=== PATIENT | male | born 1950 | race Caucasian/White ===

== ENCOUNTER 2018-08-11 15:31 | Inpatient (IN) | payer MEDICARE, MEDICAID ==
[~2018-08-11] VITALS: Ht 175.3 cm; Wt 75.1 kg
[~2018-08-11 15:31] MED LIST: AMLO10TA PO; ASPI-611 PO; ATOR40TA PO; CYAN-19 IM; DIPH50CA4 PF; DULR RC; ESCI10TA54 PO; GLIP5TAB13 PO; HYDR-4383 PO; LOSA50TA3 PO; MULT1TAB74 PO; POLY17PO10 PO; amLODIPine 5mg tablet PO ONE
[2018-08-11] MEDS ORDERED: furosemide 10 MG/1 ML 10ml inj IV ONE (15:55)
[2018-08-11] MEDS ORDERED: piperacillin/tazo 3.375gm/50ml 50 ML IV ONE (15:55)
[2018-08-11] MEDS ORDERED: normal saline 1000ML IV soln IV ONE (15:55)
[2018-08-11 17:38] LABS: HEMOGLOBIN 11.1 g/dl (14.0-17.9); LYMPHOCYTES # (AUTO) 0.4 X10'3 (1.1-4.8); MEAN CORPUSCULAR HGB CONC 32.8 % (33.0-36.5); WHITE BLOOD COUNT 12.4 X10'3 (4.5-11.0)
[2018-08-11 17:47] LABS: ALANINE AMINOTRANSFERASE 19 U/L (12-78); ALBUMIN/GLOBULIN RATIO 0.9 (1.1-1.5); ALKALINE PHOSPHATASE 98 IU/L (46-116); ANION GAP 12 (8-16); ASPARTATE AMINO TRANSFERASE 10 U/L (10-37); BILIRUBIN,TOTAL 0.6 MG/DL (0.1-1.0); BLOOD UREA NITROGEN 60 MG/DL (7-18); BUN/CREATININE RATIO 14.6 (5.4-32.0); CALCIUM 8.6 MG/DL (8.5-10.1); CHLORIDE 107 MMOL/L (99-107); GLUCOSE 209 MG/DL (70-104); POTASSIUM 4.3 MMOL/L (3.5-5.1); SODIUM 143 MMOL/L (135-145); TOTAL CARBON DIOXIDE 23.7 MMOL/L (24-32); TOTAL PROTEIN 6.5 G/DL (6.4-8.2); eGFR 15 ML/MIN
[2018-08-11] MEDS ORDERED: dextrose ORAL solution 15 GM/59 ML bottle PO PRN ×2 (17:50)
[2018-08-11] MEDS ORDERED: mag hydrox/Alum hydrox/simeth 30ml oral suspension PO PRN (17:50)
[2018-08-11] MEDS ORDERED: dextrose 50%-water 50ml dispensing syringe IV PRN ×2 (17:50)
[2018-08-11] MEDS ORDERED: acetaminophen 325mg tablet PO PRN (17:50)
[2018-08-11] MEDS ORDERED: magnesium 1gm/100ml D5W IVPB 100 ML IV PRN (17:50)
[2018-08-11] MEDS ORDERED: potassium Cl 20 mEq SR tablet PO PRN ×2 (17:50)
[2018-08-11] MEDS ORDERED: magnesium hydroxide 30ml (MOM) UD suspension PO PRN (17:50)
[2018-08-11] MEDS ORDERED: glucagon, human recombinant 1mg kit SUBCUT PRN (17:50)
[2018-08-11] MEDS ORDERED: MESSAGE TO PHARMACY PO ONE (17:50)
[2018-08-11] MEDS ORDERED: magnesium 4gm in 100ml NS 100 ML IV PRN (17:50)
[2018-08-11] MEDS ORDERED: magnesium Cl slow-release 64mg tablet PO PRN (17:50)
[2018-08-11] MEDS ORDERED: potassium Cl 40MEQ/NS 500ml 500 ML IV PRN ×2 (17:50)
[2018-08-11 17:55] LABS: BASOPHILS % (AUTO) 0.2 % (0-1); EOSINOPHILS # (AUTO) 0.2 X10'3 (0-0.9); EOSINOPHILS % (AUTO) 1.3 % (0-6); HEMATOCRIT 33.9 % (42.0-52.0); MEAN CORPUSCULAR HEMOGLOBIN 28.4 PG (27.0-31.0); MEAN CORPUSCULAR VOLUME 86.7 FL (78-98); MEAN PLATELET VOLUME 11.4 FL (7.4-10.4); MONOCYTES # (AUTO) 0.2 X10'3 (0-0.9); MONOCYTES % (AUTO) 1.7 % (2-12); NEUTROPHILS # (AUTO) 11.6 X10'3 (1.8-7.7); NEUTROPHILS % (AUTO) 93.8 % (42-75); PLATELET COUNT 96 X10'3 (140-440); RED BLOOD COUNT 3.91 X10'6 (4.70-6.10); RED CELL DISTRIBUTION WIDTH 14.1 % (11.5-14.5)
[2018-08-11 18:08] LABS: LARGE PLATELETS FEW; PLATELET ESTIMATE DECREASED
[2018-08-11 18:29] LABS: HEMOGLOBIN A1C 7.2 % (4.5-6.2)
[2018-08-11] MEDS: ipratropium/albuterol 3ml nebule NEB SCH ×2 (19:01→23:01)
[2018-08-11] MEDS ORDERED: piperacillin/tazo 3.375gm/50ml 50 ML IV SCH (20:00)
[2018-08-11 20:27] LABS: INR 1.1 INR; PARTIAL THROMBOPLASTIN TIME 28 SECONDS (22-32); PROTHROMBIN TIME 11.4 SECONDS (9.0-12.0)
[2018-08-11] MEDS ORDERED: hydrALAZINE 20mg/ml inj. IV PRN (20:50)
[2018-08-11] MEDS ORDERED: amLODIPine 5mg tablet PO ONE (20:55)
[2018-08-11] MEDS: insulin glargine (Lantus) pen - multi-dose SQ SCH (21:00)
[2018-08-11] MEDS: lactobacillus rhamnosus 10,000 MMU CELLS/CAPSULE PO SCH (21:12)
[2018-08-11 21:30] VITALS: BP 139/86
[2018-08-11 23:35] VITALS: BP 172/84
[2018-08-12] MEDS ORDERED: piperacillin/tazo 3.375gm/50ml 50 ML IV SCH (00:51)
[2018-08-12 00:54] VITALS: BP 156/71
[2018-08-12] MEDS: ipratropium/albuterol 3ml nebule NEB SCH ×6 (03:07→23:05)
[2018-08-12 05:58] LABS: BASOPHILS % (AUTO) 0.1 % (0-1); EOSINOPHILS # (AUTO) 0.1 X10'3 (0-0.9); EOSINOPHILS % (AUTO) 1.2 % (0-6); HEMATOCRIT 29.2 % (42.0-52.0); HEMOGLOBIN 9.5 g/dl (14.0-17.9); LYMPHOCYTES # (AUTO) 0.7 X10'3 (1.1-4.8); MEAN CORPUSCULAR HEMOGLOBIN 28.3 PG (27.0-31.0); MEAN CORPUSCULAR HGB CONC 32.7 % (33.0-36.5); MEAN CORPUSCULAR VOLUME 86.5 FL (78-98); MEAN PLATELET VOLUME 11.7 FL (7.4-10.4); MONOCYTES # (AUTO) 0.7 X10'3 (0-0.9); MONOCYTES % (AUTO) 6.4 % (2-12); NEUTROPHILS # (AUTO) 8.9 X10'3 (1.8-7.7); NEUTROPHILS % (AUTO) 85.3 % (42-75); PLATELET COUNT 89 X10'3 (140-440); RED BLOOD COUNT 3.37 X10'6 (4.70-6.10); RED CELL DISTRIBUTION WIDTH 14.6 % (11.5-14.5); WHITE BLOOD COUNT 10.4 X10'3 (4.5-11.0)
[2018-08-12 06:07] LABS: ALBUMIN 2.4 G/DL (3.4-5.0); ANION GAP 15 (8-16); BLOOD UREA NITROGEN 58 MG/DL (7-18); BUN/CREATININE RATIO 13.5 (5.4-32.0); CALCIUM 8.3 MG/DL (8.5-10.1); CHLORIDE 108 MMOL/L (99-107); CREATININE 4.31 MG/DL (0.60-1.10); GLUCOSE 186 MG/DL (70-104); MAGNESIUM 1.7 MG/DL (1.5-2.4); POTASSIUM 3.8 MMOL/L (3.5-5.1); SODIUM 144 MMOL/L (135-145); TOTAL CARBON DIOXIDE 21.5 MMOL/L (24-32); eGFR 14 ML/MIN
[2018-08-12] MEDS: lactobacillus rhamnosus 10,000 MMU CELLS/CAPSULE PO SCH ×2 (07:33→19:51)
[2018-08-12] MEDS: K and/or MAG REPLACEMENT MC SCH (07:35)
[2018-08-12 08:00] VITALS: BP 149/74
[2018-08-12] MEDS ORDERED: enoxaparin 40mg/0.4ml syringe SQ SCH (08:00)
[2018-08-12 08:38] LABS: LARGE PLATELETS FEW; PLATELET ESTIMATE DECREASED
[2018-08-12] MEDS: normal saline 1000ml 1,000 ML IV SCH (10:29)
[2018-08-12] MEDS: citalopram 20mg tablet PO SCH (10:30)
[2018-08-12] MEDS: amLODIPine 5mg tablet PO SCH (10:30)
[2018-08-12 12:33] VITALS: BP 152/71
[2018-08-12] MEDS: insulin Lispro (HumaLOG) vial - multi-dose SQ SCH ×2 (13:12→18:45)
[2018-08-12 17:14] LABS: % IRON SATURATION 3 % (11-46); IRON 6 UG/DL (53-167); TOTAL IRON BINDING CAPACITY 217 UG/DL (259-388)
[2018-08-12 17:18] LABS: FERRITIN 205 NG/ML (26-388); TROPONIN I < 0.04 NG/ML (0.0-0.05)
[2018-08-12] MEDS: piperacillin-tazo 2.25gm/50ml 50 ML IV SCH (19:58)
[2018-08-12 20:00] VITALS: BP 140/70
[2018-08-12] MEDS: atorvastatin 20mg tablet PO SCH (21:00)
[2018-08-12] MEDS: insulin glargine (Lantus) pen - multi-dose SQ SCH (21:00)
[2018-08-12] MEDS: diphenhydrAMINE 25mg capsule PO SCH (21:00)
[2018-08-13] VITALS: BP 150/72
[2018-08-13 02:35] VITALS: BP 158/81
[2018-08-13] MEDS: piperacillin-tazo 2.25gm/50ml 50 ML IV SCH ×4 (02:55→20:07)
[2018-08-13] MEDS: ipratropium/albuterol 3ml nebule NEB SCH ×6 (02:58→23:39)
[2018-08-13] MEDS ORDERED: potassium Cl 10 mEq/100mL bag IV ONE ×2 (03:00→04:00)
[2018-08-13] MEDS: magnesium 1gm/100ml D5W IVPB 100 ML IV SCH ×2 (03:26→04:35)
[2018-08-13] MEDS: normal saline 1000ml 1,000 ML IV SCH (04:33)
[2018-08-13] MEDS: NORMAL SALINE IV SCH ×2 (05:34→06:45)
[2018-08-13] MEDS: POTASSIUM CL IV SCH ×2 (05:34→06:45)
[2018-08-13] MEDS: citalopram 20mg tablet PO SCH (06:46)
[2018-08-13] MEDS: aspirin 81mg tablet.DR PO SCH (06:46)
[2018-08-13] MEDS: lactobacillus rhamnosus 10,000 MMU CELLS/CAPSULE PO SCH ×2 (06:46→20:07)
[2018-08-13] MEDS: multivitamins, therapeutics tablet PO SCH (06:47)
[2018-08-13] MEDS: amLODIPine 5mg tablet PO SCH (06:47)
[2018-08-13 06:55] VITALS: BP 134/77
[2018-08-13] MEDS: insulin Lispro (HumaLOG) vial - multi-dose SQ SCH ×3 (07:11→18:36)
[2018-08-13 11:07] LABS: BASOPHILS % (AUTO) 0.2 % (0-1); EOSINOPHILS # (AUTO) 0.2 X10'3 (0-0.9); EOSINOPHILS % (AUTO) 1.7 % (0-6); HEMATOCRIT 28.8 % (42.0-52.0); HEMOGLOBIN 9.4 g/dl (14.0-17.9); LYMPHOCYTES # (AUTO) 0.4 X10'3 (1.1-4.8); LYMPHOCYTES % (AUTO) 4.6 % (21-51); MEAN CORPUSCULAR HEMOGLOBIN 28.6 PG (27.0-31.0); MEAN CORPUSCULAR HGB CONC 32.8 % (33.0-36.5); MEAN CORPUSCULAR VOLUME 87.4 FL (78-98); MEAN PLATELET VOLUME 14.7 FL (7.4-10.4); MONOCYTES # (AUTO) 0.7 X10'3 (0-0.9); MONOCYTES % (AUTO) 7.5 % (2-12); NEUTROPHILS # (AUTO) 7.9 X10'3 (1.8-7.7); PLATELET COUNT 111 X10'3 (140-440); RED CELL DISTRIBUTION WIDTH 15.2 % (11.5-14.5); WHITE BLOOD COUNT 9.2 X10'3 (4.5-11.0)
[2018-08-13 11:27] LABS: ALBUMIN 2.3 G/DL (3.4-5.0); ANION GAP 14 (8-16); BLOOD UREA NITROGEN 60 MG/DL (7-18); BUN/CREATININE RATIO 12.5 (5.4-32.0); CALCIUM 8.5 MG/DL (8.5-10.1); CHLORIDE 110 MMOL/L (99-107); CREATININE 4.81 MG/DL (0.60-1.10); GLUCOSE 146 MG/DL (70-104); MAGNESIUM 2.5 MG/DL (1.5-2.4); PHOSPHORUS 4.6 MG/DL (2.3-4.5); POTASSIUM 4.4 MMOL/L (3.5-5.1); SODIUM 145 MMOL/L (135-145); TOTAL CARBON DIOXIDE 21.5 MMOL/L (24-32); eGFR 12 ML/MIN
[2018-08-13] MEDS: enoxaparin 30mg/0.3ml syringe SQ SCH (11:31)
[2018-08-13] MEDS: K and/or MAG REPLACEMENT MC SCH (11:37)
[2018-08-13 11:48] VITALS: BP 150/81
[2018-08-13 15:19] LABS: OCCULT BLOOD STOOL NEGATIVE (Neg)
[2018-08-13] MEDS ORDERED: bisacodyl 10mg suppository rectal RC PRN (17:00)
[2018-08-13 18:00] VITALS: BP 135/63
[2018-08-13] MEDS: furosemide 10 MG/1 ML 10ml inj IV SCH ×2 (18:40→20:00)
[2018-08-13] MEDS: atorvastatin 20mg tablet PO SCH (20:07)
[2018-08-13] MEDS: diphenhydrAMINE 25mg capsule PO SCH (20:07)
[2018-08-13] MEDS: insulin glargine (Lantus) pen - multi-dose SQ SCH (21:09)
[2018-08-14] VITALS: BP 142/82
[2018-08-14] MEDS: piperacillin-tazo 2.25gm/50ml 50 ML IV SCH ×4 (01:46→20:54)
[2018-08-14] MEDS: ipratropium/albuterol 3ml nebule NEB SCH ×6 (03:22→23:03)
[2018-08-14 06:04] LABS: BASOPHILS % (AUTO) 0.1 % (0-1); EOSINOPHILS # (AUTO) 0.1 X10'3 (0-0.9); EOSINOPHILS % (AUTO) 0.9 % (0-6); HEMATOCRIT 27.6 % (42.0-52.0); HEMOGLOBIN 9.1 g/dl (14.0-17.9); LYMPHOCYTES # (AUTO) 0.6 X10'3 (1.1-4.8); LYMPHOCYTES % (AUTO) 7.3 % (21-51); MEAN CORPUSCULAR HEMOGLOBIN 28.6 PG (27.0-31.0); MEAN CORPUSCULAR HGB CONC 32.9 % (33.0-36.5); MEAN CORPUSCULAR VOLUME 87.1 FL (78-98); MEAN PLATELET VOLUME 14.2 FL (7.4-10.4); MONOCYTES # (AUTO) 0.5 X10'3 (0-0.9); MONOCYTES % (AUTO) 6.2 % (2-12); NEUTROPHILS # (AUTO) 7.3 X10'3 (1.8-7.7); NEUTROPHILS % (AUTO) 85.5 % (42-75); PLATELET COUNT 109 X10'3 (140-440); RED BLOOD COUNT 3.17 X10'6 (4.70-6.10); RED CELL DISTRIBUTION WIDTH 15.1 % (11.5-14.5); WHITE BLOOD COUNT 8.5 X10'3 (4.5-11.0)
[2018-08-14 06:26] LABS: ALBUMIN 2.1 G/DL (3.4-5.0); ANION GAP 15 (8-16); BLOOD UREA NITROGEN 66 MG/DL (7-18); BUN/CREATININE RATIO 13.1 (5.4-32.0); CALCIUM 8.5 MG/DL (8.5-10.1); CHLORIDE 111 MMOL/L (99-107); CREATININE 5.02 MG/DL (0.60-1.10); GLUCOSE 110 MG/DL (70-104); MAGNESIUM 2.4 MG/DL (1.5-2.4); POTASSIUM 4.1 MMOL/L (3.5-5.1); SODIUM 147 MMOL/L (135-145); TOTAL CARBON DIOXIDE 21.2 MMOL/L (24-32); eGFR 12 ML/MIN
[2018-08-14] MEDS: K and/or MAG REPLACEMENT MC SCH (07:01)
[2018-08-14 07:39] VITALS: BP 147/72
[2018-08-14] MEDS: multivitamins, therapeutics tablet PO SCH (08:00)
[2018-08-14] MEDS: amLODIPine 5mg tablet PO SCH (08:41)
[2018-08-14] MEDS: lactobacillus rhamnosus 10,000 MMU CELLS/CAPSULE PO SCH ×2 (08:41→19:36)
[2018-08-14] MEDS: citalopram 20mg tablet PO SCH (08:41)
[2018-08-14] MEDS: furosemide 10 MG/1 ML 10ml inj IV SCH (08:41)
[2018-08-14] MEDS: aspirin 81mg tablet.DR PO SCH (08:41)
[2018-08-14] MEDS: enoxaparin 30mg/0.3ml syringe SQ SCH (08:42)
[2018-08-14 11:44] VITALS: BP 140/74
[2018-08-14] MEDS: insulin Lispro (HumaLOG) vial - multi-dose SQ SCH ×2 (13:19→19:09)
[2018-08-14 18:00] VITALS: BP 138/63
[2018-08-14] MEDS: furosemide 40mg/4ml inj IV SCH (19:36)
[2018-08-14] MEDS: albumin (Human) 5% 250ml 250 ML IV SCH (19:38)
[2018-08-14] MEDS: atorvastatin 20mg tablet PO SCH (20:54)
[2018-08-14] MEDS: diphenhydrAMINE 25mg capsule PO SCH (20:54)
[2018-08-14] MEDS: insulin glargine (Lantus) pen - multi-dose SQ SCH (21:30)
[2018-08-14 23:30] VITALS: BP 147/73
[2018-08-15] MEDS: piperacillin-tazo 2.25gm/50ml 50 ML IV SCH ×4 (01:34→19:35)
[2018-08-15] MEDS: albumin (Human) 5% 250ml 250 ML IV SCH ×2 (02:21→07:18)
[2018-08-15] MEDS: ipratropium/albuterol 3ml nebule NEB SCH ×6 (03:03→23:15)
[2018-08-15 05:14] LABS: BASOPHILS # (AUTO) 0.1 X10'3 (0-0.2); BASOPHILS % (AUTO) 1.3 % (0-1); EOSINOPHILS # (AUTO) 0.1 X10'3 (0-0.9); EOSINOPHILS % (AUTO) 1.6 % (0-6); HEMATOCRIT 27.1 % (42.0-52.0); HEMOGLOBIN 8.9 g/dl (14.0-17.9); LYMPHOCYTES # (AUTO) 0.6 X10'3 (1.1-4.8); LYMPHOCYTES % (AUTO) 7.7 % (21-51); MEAN CORPUSCULAR HEMOGLOBIN 28.6 PG (27.0-31.0); MEAN CORPUSCULAR HGB CONC 32.9 % (33.0-36.5); MEAN CORPUSCULAR VOLUME 87.1 FL (78-98); MEAN PLATELET VOLUME 15.1 FL (7.4-10.4); MONOCYTES # (AUTO) 0.4 X10'3 (0-0.9); MONOCYTES % (AUTO) 5.4 % (2-12); NEUTROPHILS # (AUTO) 6.1 X10'3 (1.8-7.7); PLATELET COUNT 122 X10'3 (140-440); RED BLOOD COUNT 3.12 X10'6 (4.70-6.10); RED CELL DISTRIBUTION WIDTH 15.1 % (11.5-14.5); WHITE BLOOD COUNT 7.2 X10'3 (4.5-11.0)
[2018-08-15 06:22] LABS: ALBUMIN 2.5 G/DL (3.4-5.0); ANION GAP 16 (8-16); BLOOD UREA NITROGEN 66 MG/DL (7-18); BUN/CREATININE RATIO 12.4 (5.4-32.0); CALCIUM 8.4 MG/DL (8.5-10.1); CHLORIDE 110 MMOL/L (99-107); CREATININE 5.31 MG/DL (0.60-1.10); GLUCOSE 111 MG/DL (70-104); MAGNESIUM 2.5 MG/DL (1.5-2.4); POTASSIUM 3.6 MMOL/L (3.5-5.1); SODIUM 148 MMOL/L (135-145); TOTAL CARBON DIOXIDE 22.1 MMOL/L (24-32); eGFR 11 ML/MIN
[2018-08-15 07:00] VITALS: BP 120/91
[2018-08-15] MEDS: furosemide 40mg/4ml inj IV SCH ×2 (07:17→21:01)
[2018-08-15] MEDS: multivitamins, therapeutics tablet PO SCH (07:18)
[2018-08-15] MEDS: aspirin 81mg tablet.DR PO SCH (07:18)
[2018-08-15] MEDS: enoxaparin 30mg/0.3ml syringe SQ SCH (07:18)
[2018-08-15] MEDS: amLODIPine 5mg tablet PO SCH (07:18)
[2018-08-15] MEDS: lactobacillus rhamnosus 10,000 MMU CELLS/CAPSULE PO SCH ×2 (07:18→19:35)
[2018-08-15] MEDS: citalopram 20mg tablet PO SCH (07:19)
[2018-08-15] MEDS: K and/or MAG REPLACEMENT MC SCH (08:00)
[2018-08-15] MEDS: insulin Lispro (HumaLOG) vial - multi-dose SQ SCH ×3 (09:11→18:50)
[2018-08-15 12:35] VITALS: BP 141/72
[2018-08-15] MEDS: ondansetron/PF 4mg/2ml inj IV PRN (13:17)
[2018-08-15 20:00] VITALS: BP 127/58
[2018-08-15] MEDS: diphenhydrAMINE 25mg capsule PO SCH (21:00)
[2018-08-15] MEDS: atorvastatin 20mg tablet PO SCH (21:00)
[2018-08-15] MEDS: insulin glargine (Lantus) pen - multi-dose SQ SCH (21:22)
[2018-08-16] VITALS (8 sets, daily range): BP systolic 110–164; BP diastolic 58–69
[2018-08-16] MEDS: piperacillin-tazo 2.25gm/50ml 50 ML IV SCH ×4 (02:08→21:45)
[2018-08-16] MEDS: ipratropium/albuterol 3ml nebule NEB SCH ×6 (03:16→23:38)
[2018-08-16 05:20] LABS: BASOPHILS % (AUTO) 0.3 % (0-1); EOSINOPHILS # (AUTO) 0.2 X10'3 (0-0.9); EOSINOPHILS % (AUTO) 2.2 % (0-6); HEMATOCRIT 27.1 % (42.0-52.0); LYMPHOCYTES # (AUTO) 0.5 X10'3 (1.1-4.8); LYMPHOCYTES % (AUTO) 7.3 % (21-51); MEAN CORPUSCULAR HEMOGLOBIN 28.8 PG (27.0-31.0); MEAN CORPUSCULAR VOLUME 87.2 FL (78-98); MEAN PLATELET VOLUME 11.4 FL (7.4-10.4); MONOCYTES # (AUTO) 0.5 X10'3 (0-0.9); MONOCYTES % (AUTO) 6.9 % (2-12); NEUTROPHILS # (AUTO) 5.9 X10'3 (1.8-7.7); NEUTROPHILS % (AUTO) 83.3 % (42-75); PLATELET COUNT 97 X10'3 (140-440); RED BLOOD COUNT 3.11 X10'6 (4.70-6.10); RED CELL DISTRIBUTION WIDTH 14.8 % (11.5-14.5)
[2018-08-16 05:35] LABS: ALBUMIN 2.3 G/DL (3.4-5.0); ANION GAP 16 (8-16); BLOOD UREA NITROGEN 60 MG/DL (7-18); BUN/CREATININE RATIO 10.5 (5.4-32.0); CALCIUM 8.4 MG/DL (8.5-10.1); CHLORIDE 108 MMOL/L (99-107); GLUCOSE 100 MG/DL (70-104); MAGNESIUM 2.2 MG/DL (1.5-2.4); POTASSIUM 3.5 MMOL/L (3.5-5.1); SODIUM 147 MMOL/L (135-145); TOTAL CARBON DIOXIDE 22.8 MMOL/L (24-32); eGFR 10 ML/MIN
[2018-08-16 05:45] LABS: LARGE PLATELETS FEW
[2018-08-16 07:11] LABS: PLATELET ESTIMATE DECREASED
[2018-08-16] MEDS ORDERED: normal saline 1000ml 250 ML IV PRN (08:00)
[2018-08-16] MEDS: aspirin 81mg tablet.DR PO SCH (08:00)
[2018-08-16] MEDS: K and/or MAG REPLACEMENT MC SCH (08:00)
[2018-08-16] MEDS ORDERED: heparin 1,000unit/ml 10ml vial 10 ML IV ONE (08:00)
[2018-08-16] MEDS: furosemide 40mg/4ml inj IV SCH ×2 (08:28→21:41)
[2018-08-16] MEDS ORDERED: midazolam 2 mg/2 ml injection IV PRN (08:35)
[2018-08-16] MEDS ORDERED: heparin 1,000 units/ml 10ml inj ICATH ONE (08:35)
[2018-08-16] MEDS ORDERED: fentaNYL/PF 50MCG/1 ML 2ML syringe IV PRN (08:35)
[2018-08-16] MEDS ORDERED: LIDOcaine 1%/PF 5ML 10 MG/ML VIAL SQ ONE (08:35)
[2018-08-16] MEDS ORDERED: heparin 1,000unit/ml 10ml vial 10 ML ONE (08:39)
[2018-08-16] MEDS: multivitamins, therapeutics tablet PO SCH (08:39)
[2018-08-16] MEDS ORDERED: LIDOcaine 1% (10mg/ml) 2ml vial ONE ×2 (08:39→09:19)
[2018-08-16] MEDS: amLODIPine 5mg tablet PO SCH (08:39)
[2018-08-16] MEDS: lactobacillus rhamnosus 10,000 MMU CELLS/CAPSULE PO SCH ×2 (08:39→21:41)
[2018-08-16] MEDS: citalopram 20mg tablet PO SCH (08:40)
[2018-08-16] MEDS ORDERED: midazolam 2 mg/2 ml injection ONE (08:40)
[2018-08-16] MEDS ORDERED: fentaNYL/PF 50MCG/1 ML 2ML syringe ONE (08:40)
[2018-08-16] MEDS ORDERED: heparin 1,000 units/ml 10ml inj HE ONE ×2 (11:35)
[2018-08-16 11:43] LABS: ALBUMIN 2.7 g/dL (2.9-4.4); BETA GLOBULIN 0.7 g/dL (0.7-1.3); GAMMA GLOBULIN 0.5 g/dL (0.4-1.8); GLOBULIN, TOTAL 2.6 g/dL (2.2-3.9); M-SPIKE Not Observed g/dL (Not Observed); PROTEIN, TOTAL, SERUM 5.3 g/dL (6.0-8.5)
[2018-08-16] MEDS: atorvastatin 20mg tablet PO SCH (21:41)
[2018-08-16] MEDS: diphenhydrAMINE 25mg capsule PO SCH (21:41)
[2018-08-16] MEDS: heparin, porcine 5000 units/ml vial SQ SCH (21:42)
[2018-08-16] MEDS: insulin glargine (Lantus) pen - multi-dose SQ SCH (22:03)
[2018-08-17] VITALS: BP 155/80
[2018-08-17] MEDS: piperacillin-tazo 2.25gm/50ml 50 ML IV SCH ×4 (02:05→21:05)
[2018-08-17] MEDS: ipratropium/albuterol 3ml nebule NEB SCH ×6 (02:49→22:44)
[2018-08-17 06:14] LABS: ALBUMIN, UR 64.7 % (.); ALPHA-1-GLOBULIN,UR 1.2 % (.); ALPHA-2-GLOBULIN,UR 13.6 % (.); BETA GLOBULIN, UR 11.1 % (.); GAMMA GLOBULIN,UR 9.4 % (.); PROTEIN,TOTAL,URINE 380.8 mg/dL (Not Estab.)
[2018-08-17 08:00] VITALS: BP 145/86
[2018-08-17] MEDS ORDERED: heparin 1,000unit/ml 10ml vial 10 ML IV ONE (08:00)
[2018-08-17] MEDS: aspirin 81mg tablet.DR PO SCH (08:00)
[2018-08-17] MEDS: K and/or MAG REPLACEMENT MC SCH (08:00)
[2018-08-17] MEDS ORDERED: normal saline 1000ml 250 ML IV PRN (08:00)
[2018-08-17] MEDS: heparin, porcine 5000 units/ml vial SQ SCH ×2 (08:00→21:06)
[2018-08-17] MEDS: enoxaparin 30mg/0.3ml syringe SQ SCH (08:00)
[2018-08-17] MEDS ORDERED: epoetin 20,000 units/ml inj IV ONE (08:00)
[2018-08-17] MEDS: amLODIPine 5mg tablet PO SCH ×2 (08:00→09:16)
[2018-08-17] MEDS: insulin Lispro (HumaLOG) vial - multi-dose SQ SCH ×3 (09:14→19:12)
[2018-08-17] MEDS: lactobacillus rhamnosus 10,000 MMU CELLS/CAPSULE PO SCH ×2 (09:15→21:06)
[2018-08-17] MEDS: furosemide 40mg/4ml inj IV SCH ×2 (09:16→21:06)
[2018-08-17] MEDS: citalopram 20mg tablet PO SCH (09:16)
[2018-08-17] MEDS: multivitamins, therapeutics tablet PO SCH (09:16)
[2018-08-17 09:52] LABS: BASOPHILS % (AUTO) 0.6 % (0-1); EOSINOPHILS # (AUTO) 0.1 X10'3 (0-0.9); EOSINOPHILS % (AUTO) 1.1 % (0-6); HEMATOCRIT 30.3 % (42.0-52.0); HEMOGLOBIN 9.7 g/dl (14.0-17.9); LYMPHOCYTES # (AUTO) 0.7 X10'3 (1.1-4.8); LYMPHOCYTES % (AUTO) 8.7 % (21-51); MEAN CORPUSCULAR HEMOGLOBIN 27.8 PG (27.0-31.0); MEAN CORPUSCULAR HGB CONC 32.2 % (33.0-36.5); MEAN CORPUSCULAR VOLUME 86.5 FL (78-98); MONOCYTES # (AUTO) 0.7 X10'3 (0-0.9); MONOCYTES % (AUTO) 8.6 % (2-12); NEUTROPHILS # (AUTO) 6.9 X10'3 (1.8-7.7); PLATELET COUNT 147 X10'3 (140-440); RED CELL DISTRIBUTION WIDTH 14.5 % (11.5-14.5); WHITE BLOOD COUNT 8.5 X10'3 (4.5-11.0)
[2018-08-17 10:27] LABS: LARGE PLATELETS FEW; PLATELET ESTIMATE NORMAL
[2018-08-17] MEDS ORDERED: heparin 1,000 units/ml 10ml inj HE ONE ×2 (11:20)
[2018-08-17 11:25] VITALS: BP 150/82
[2018-08-17 20:00] VITALS: BP 153/67
[2018-08-17] MEDS: diphenhydrAMINE 25mg capsule PO SCH (21:05)
[2018-08-17] MEDS: atorvastatin 20mg tablet PO SCH (21:06)
[2018-08-17] MEDS: insulin glargine (Lantus) pen - multi-dose SQ SCH (21:09)
[2018-08-17 23:00] VITALS: BP 162/81
[2018-08-18] MEDS: ondansetron/PF 4mg/2ml inj IV PRN (00:08)
[2018-08-18] MEDS: piperacillin-tazo 2.25gm/50ml 50 ML IV SCH ×5 (01:45→21:30)
[2018-08-18] MEDS: ipratropium/albuterol 3ml nebule NEB SCH ×5 (02:33→19:19)
[2018-08-18 04:49] LABS: BASOPHILS % (AUTO) 0 % (0-1); EOSINOPHILS # (AUTO) 0.2 X10'3 (0-0.9); HEMOGLOBIN 9.4 g/dl (14.0-17.9); LYMPHOCYTES # (AUTO) 0.5 X10'3 (1.1-4.8); NEUTROPHILS # (AUTO) 6.5 X10'3 (1.8-7.7)
[2018-08-18 05:05] LABS: HEMATOCRIT 28.9 % (42.0-52.0); LYMPHOCYTES % (AUTO) 6.9 % (21-51); MEAN CORPUSCULAR HEMOGLOBIN 28.2 PG (27.0-31.0); MEAN CORPUSCULAR HGB CONC 32.6 % (33.0-36.5); MEAN CORPUSCULAR VOLUME 86.5 FL (78-98); MONOCYTES # (AUTO) 0.6 X10'3 (0-0.9); NEUTROPHILS % (AUTO) 83.1 % (42-75); PLATELET COUNT 147 X10'3 (140-440); RED BLOOD COUNT 3.34 X10'6 (4.70-6.10); RED CELL DISTRIBUTION WIDTH 14.3 % (11.5-14.5); WHITE BLOOD COUNT 7.8 X10'3 (4.5-11.0)
[2018-08-18 05:25] LABS: ALBUMIN 2.1 G/DL (3.4-5.0); ANION GAP 10 (8-16); BLOOD UREA NITROGEN 25 MG/DL (7-18); BUN/CREATININE RATIO 7.1 (5.4-32.0); CALCIUM 7.9 MG/DL (8.5-10.1); CHLORIDE 103 MMOL/L (99-107); GLUCOSE 148 MG/DL (70-104); MAGNESIUM 1.8 MG/DL (1.5-2.4); PHOSPHORUS 3.8 MG/DL (2.3-4.5); POTASSIUM 3.3 MMOL/L (3.5-5.1); SODIUM 143 MMOL/L (135-145); TOTAL CARBON DIOXIDE 29.7 MMOL/L (24-32); eGFR 17 ML/MIN
[2018-08-18 07:00] VITALS: BP 152/62
[2018-08-18] MEDS: K and/or MAG REPLACEMENT MC SCH (08:00)
[2018-08-18] MEDS: enoxaparin 30mg/0.3ml syringe SQ SCH (08:00)
[2018-08-18] MEDS: insulin Lispro (HumaLOG) vial - multi-dose SQ SCH ×3 (10:05→19:11)
[2018-08-18] MEDS: aspirin 81mg tablet.DR PO SCH (10:06)
[2018-08-18] MEDS: citalopram 20mg tablet PO SCH (10:06)
[2018-08-18] MEDS: multivitamins, therapeutics tablet PO SCH (10:06)
[2018-08-18] MEDS: heparin, porcine 5000 units/ml vial SQ SCH ×2 (10:07→21:29)
[2018-08-18] MEDS: lactobacillus rhamnosus 10,000 MMU CELLS/CAPSULE PO SCH ×2 (10:07→21:30)
[2018-08-18] MEDS: amLODIPine 5mg tablet PO SCH (10:07)
[2018-08-18] MEDS: furosemide 40mg/4ml inj IV SCH ×2 (10:07→21:29)
[2018-08-18 12:00] VITALS: BP 108/63
[2018-08-18 18:00] VITALS: BP 129/60
[2018-08-18] MEDS: diphenhydrAMINE 25mg capsule PO SCH (21:30)
[2018-08-18] MEDS: atorvastatin 20mg tablet PO SCH (21:30)
[2018-08-18] MEDS: insulin glargine (Lantus) pen - multi-dose SQ SCH (21:34)
[2018-08-19] VITALS: BP 145/74
[2018-08-19] MEDS: ipratropium/albuterol 3ml nebule NEB SCH ×6 (00:19→19:53)
[2018-08-19 05:01] LABS: BASOPHILS % (AUTO) 0.5 % (0-1); EOSINOPHILS # (AUTO) 0.3 X10'3 (0-0.9); EOSINOPHILS % (AUTO) 3.6 % (0-6); HEMATOCRIT 28.4 % (42.0-52.0); HEMOGLOBIN 9.2 g/dl (14.0-17.9); LYMPHOCYTES # (AUTO) 0.9 X10'3 (1.1-4.8); LYMPHOCYTES % (AUTO) 11.2 % (21-51); MEAN CORPUSCULAR HGB CONC 32.4 % (33.0-36.5); MEAN CORPUSCULAR VOLUME 86.6 FL (78-98); MEAN PLATELET VOLUME 13.8 FL (7.4-10.4); MONOCYTES # (AUTO) 0.6 X10'3 (0-0.9); NEUTROPHILS # (AUTO) 6.6 X10'3 (1.8-7.7); NEUTROPHILS % (AUTO) 77.7 % (42-75); PLATELET COUNT 157 X10'3 (140-440); RED BLOOD COUNT 3.28 X10'6 (4.70-6.10); RED CELL DISTRIBUTION WIDTH 14.4 % (11.5-14.5); WHITE BLOOD COUNT 8.4 X10'3 (4.5-11.0)
[2018-08-19 05:34] LABS: ALBUMIN 2.1 G/DL (3.4-5.0); ANION GAP 11 (8-16); BLOOD UREA NITROGEN 39 MG/DL (7-18); BUN/CREATININE RATIO 8.3 (5.4-32.0); CALCIUM 8.1 MG/DL (8.5-10.1); CHLORIDE 101 MMOL/L (99-107); GLUCOSE 136 MG/DL (70-104); MAGNESIUM 1.9 MG/DL (1.5-2.4); PHOSPHORUS 4.5 MG/DL (2.3-4.5); POTASSIUM 3.7 MMOL/L (3.5-5.1); SODIUM 140 MMOL/L (135-145); TOTAL CARBON DIOXIDE 28.5 MMOL/L (24-32); eGFR 12 ML/MIN
[2018-08-19 05:40] LABS: PLATELET ESTIMATE NORMAL
[2018-08-19 05:41] LABS: LARGE PLATELETS MODERATE
[2018-08-19 07:30] VITALS: BP 139/79
[2018-08-19] MEDS: furosemide 40mg/4ml inj IV SCH (08:00)
[2018-08-19] MEDS: K and/or MAG REPLACEMENT MC SCH (08:00)
[2018-08-19] MEDS: enoxaparin 30mg/0.3ml syringe SQ SCH (08:00)
[2018-08-19] MEDS: amLODIPine 5mg tablet PO SCH (08:15)
[2018-08-19] MEDS: multivitamins, therapeutics tablet PO SCH (08:15)
[2018-08-19] MEDS: aspirin 81mg tablet.DR PO SCH (08:15)
[2018-08-19] MEDS: lactobacillus rhamnosus 10,000 MMU CELLS/CAPSULE PO SCH ×2 (08:15→21:01)
[2018-08-19] MEDS: citalopram 20mg tablet PO SCH (08:15)
[2018-08-19] MEDS: heparin, porcine 5000 units/ml vial SQ SCH ×2 (08:16→21:02)
[2018-08-19 12:21] VITALS: BP 143/70
[2018-08-19] MEDS: insulin Lispro (HumaLOG) vial - multi-dose SQ SCH (13:31)
[2018-08-19 18:00] VITALS: BP 149/95
[2018-08-19 20:55] VITALS: BP 155/62
[2018-08-19] MEDS: insulin glargine (Lantus) pen - multi-dose SQ SCH (21:01)
[2018-08-19] MEDS: furosemide 40mg tablet PO SCH (21:01)
[2018-08-19] MEDS: diphenhydrAMINE 25mg capsule PO SCH (21:02)
[2018-08-19] MEDS: atorvastatin 20mg tablet PO SCH (21:02)
[2018-08-20] VITALS: BP 148/50
[2018-08-20] MEDS: ipratropium/albuterol 3ml nebule NEB SCH ×7 (00:08→23:10)
[2018-08-20 05:22] LABS: BASOPHILS # (AUTO) 0.1 X10'3 (0-0.2); BASOPHILS % (AUTO) 0.8 % (0-1); EOSINOPHILS # (AUTO) 0.1 X10'3 (0-0.9); EOSINOPHILS % (AUTO) 1.5 % (0-6); HEMATOCRIT 29.8 % (42.0-52.0); HEMOGLOBIN 9.6 g/dl (14.0-17.9); LYMPHOCYTES # (AUTO) 0.8 X10'3 (1.1-4.8); MEAN CORPUSCULAR HEMOGLOBIN 27.8 PG (27.0-31.0); MEAN CORPUSCULAR HGB CONC 32.4 % (33.0-36.5); MEAN CORPUSCULAR VOLUME 85.8 FL (78-98); MEAN PLATELET VOLUME 11.3 FL (7.4-10.4); MONOCYTES # (AUTO) 0.5 X10'3 (0-0.9); MONOCYTES % (AUTO) 5.7 % (2-12); PLATELET COUNT 150 X10'3 (140-440); RED BLOOD COUNT 3.47 X10'6 (4.70-6.10); RED CELL DISTRIBUTION WIDTH 14.4 % (11.5-14.5); WHITE BLOOD COUNT 8.5 X10'3 (4.5-11.0)
[2018-08-20 05:40] LABS: ALBUMIN 2.2 G/DL (3.4-5.0); ANION GAP 12 (8-16); BLOOD UREA NITROGEN 47 MG/DL (7-18); BUN/CREATININE RATIO 8.8 (5.4-32.0); CALCIUM 8.2 MG/DL (8.5-10.1); CHLORIDE 100 MMOL/L (99-107); CREATININE 5.32 MG/DL (0.60-1.10); GLUCOSE 153 MG/DL (70-104); MAGNESIUM 1.9 MG/DL (1.5-2.4); POTASSIUM 3.9 MMOL/L (3.5-5.1); SODIUM 139 MMOL/L (135-145); TOTAL CARBON DIOXIDE 27.3 MMOL/L (24-32); eGFR 11 ML/MIN
[2018-08-20 05:55] LABS: LARGE PLATELETS MODERATE; PLATELET ESTIMATE NORMAL
[2018-08-20 07:30] VITALS: BP 119/74
[2018-08-20] MEDS: aspirin 81mg tablet.DR PO SCH (07:54)
[2018-08-20] MEDS: multivitamins, therapeutics tablet PO SCH (07:54)
[2018-08-20] MEDS: lactobacillus rhamnosus 10,000 MMU CELLS/CAPSULE PO SCH ×2 (07:54→20:55)
[2018-08-20] MEDS: heparin, porcine 5000 units/ml vial SQ SCH ×2 (07:54→20:56)
[2018-08-20] MEDS: furosemide 40mg tablet PO SCH ×2 (07:54→20:55)
[2018-08-20] MEDS: citalopram 20mg tablet PO SCH (07:55)
[2018-08-20] MEDS: K and/or MAG REPLACEMENT MC SCH (07:55)
[2018-08-20] MEDS: amLODIPine 5mg tablet PO SCH (07:55)
[2018-08-20] MEDS ORDERED: heparin 1,000unit/ml 10ml vial 10 ML IV ONE (09:01)
[2018-08-20] MEDS ORDERED: normal saline 1000ml 250 ML IV PRN (09:01)
[2018-08-20] MEDS ORDERED: heparin 1,000 units/ml 10ml inj HE ONE ×2 (09:05)
[2018-08-20] MEDS ORDERED: epoetin 20,000 units/ml inj IV ONE (09:05)
[2018-08-20] MEDS ORDERED: ondansetron 4mg rapidly disintigrating tab PO PRN (10:50)
[2018-08-20 11:18] VITALS: BP 132/46
[2018-08-20] MEDS: insulin Lispro (HumaLOG) vial - multi-dose SQ SCH (14:12)
[2018-08-20 20:00] VITALS: BP 152/74
[2018-08-20] MEDS: insulin glargine (Lantus) pen - multi-dose SQ SCH (20:52)
[2018-08-20] MEDS: atorvastatin 20mg tablet PO SCH (20:55)
[2018-08-20] MEDS: diphenhydrAMINE 25mg capsule PO SCH (20:55)
[2018-08-21] VITALS: BP 159/73
[2018-08-21] MEDS: ipratropium/albuterol 3ml nebule NEB SCH ×6 (03:05→23:45)
[2018-08-21 04:38] LABS: ALBUMIN 2.3 G/DL (3.4-5.0); ANION GAP 10 (8-16); BLOOD UREA NITROGEN 29 MG/DL (7-18); BUN/CREATININE RATIO 8.6 (5.4-32.0); CALCIUM 8.5 MG/DL (8.5-10.1); CHLORIDE 100 MMOL/L (99-107); CREATININE 3.38 MG/DL (0.60-1.10); GLUCOSE 178 MG/DL (70-104); MAGNESIUM 1.8 MG/DL (1.5-2.4); POTASSIUM 3.6 MMOL/L (3.5-5.1); SODIUM 139 MMOL/L (135-145); TOTAL CARBON DIOXIDE 28.7 MMOL/L (24-32); eGFR 18 ML/MIN
[2018-08-21 04:44] LABS: BASOPHILS % (AUTO) 0.3 % (0-1); EOSINOPHILS # (AUTO) 0.2 X10'3 (0-0.9); EOSINOPHILS % (AUTO) 1.9 % (0-6); HEMATOCRIT 30.8 % (42.0-52.0); HEMOGLOBIN 10.1 g/dl (14.0-17.9); LYMPHOCYTES # (AUTO) 0.6 X10'3 (1.1-4.8); LYMPHOCYTES % (AUTO) 7.3 % (21-51); MEAN CORPUSCULAR HEMOGLOBIN 28.1 PG (27.0-31.0); MEAN CORPUSCULAR HGB CONC 32.6 % (33.0-36.5); MEAN CORPUSCULAR VOLUME 86.2 FL (78-98); MEAN PLATELET VOLUME 14.8 FL (7.4-10.4); MONOCYTES # (AUTO) 0.7 X10'3 (0-0.9); MONOCYTES % (AUTO) 7.9 % (2-12); NEUTROPHILS % (AUTO) 82.6 % (42-75); PLATELET COUNT 182 X10'3 (140-440); RED BLOOD COUNT 3.58 X10'6 (4.70-6.10); RED CELL DISTRIBUTION WIDTH 14.5 % (11.5-14.5); WHITE BLOOD COUNT 8.5 X10'3 (4.5-11.0)
[2018-08-21 06:34] LABS: HBSAG SCREEN Negative (Negative)
[2018-08-21 07:30] VITALS: BP 143/74
[2018-08-21] MEDS: K and/or MAG REPLACEMENT MC SCH (08:00)
[2018-08-21] MEDS: insulin Lispro (HumaLOG) vial - multi-dose SQ SCH ×3 (08:55→18:58)
[2018-08-21] MEDS: amLODIPine 5mg tablet PO SCH (08:56)
[2018-08-21] MEDS: furosemide 40mg tablet PO SCH ×2 (08:56→20:09)
[2018-08-21] MEDS: lactobacillus rhamnosus 10,000 MMU CELLS/CAPSULE PO SCH ×2 (08:56→20:09)
[2018-08-21] MEDS: multivitamins, therapeutics tablet PO SCH (08:57)
[2018-08-21] MEDS: citalopram 20mg tablet PO SCH (08:57)
[2018-08-21] MEDS: aspirin 81mg tablet.DR PO SCH (08:57)
[2018-08-21] MEDS: heparin, porcine 5000 units/ml vial SQ SCH ×2 (08:58→20:09)
[2018-08-21 10:15] LABS: LARGE PLATELETS FEW; PLATELET ESTIMATE NORMAL
[2018-08-21 11:00] VITALS: BP 137/62
[2018-08-21 20:00] VITALS: BP 123/53
[2018-08-21] MEDS: diphenhydrAMINE 25mg capsule PO SCH (20:09)
[2018-08-21] MEDS: atorvastatin 20mg tablet PO SCH (20:09)
[2018-08-21] MEDS: insulin glargine (Lantus) pen - multi-dose SQ SCH (21:25)
[2018-08-22] VITALS: BP 146/72
[2018-08-22] MEDS: ipratropium/albuterol 3ml nebule NEB SCH ×6 (03:31→23:20)
[2018-08-22 07:00] VITALS: BP_SYST 139; BP_SYST 149; BP_DIAS 72; BP_DIAS 94
[2018-08-22] MEDS: K and/or MAG REPLACEMENT MC SCH (08:00)
[2018-08-22] MEDS: citalopram 20mg tablet PO SCH (10:02)
[2018-08-22] MEDS: lactobacillus rhamnosus 10,000 MMU CELLS/CAPSULE PO SCH ×2 (10:02→21:43)
[2018-08-22] MEDS: heparin, porcine 5000 units/ml vial SQ SCH ×2 (10:02→20:00)
[2018-08-22] MEDS: furosemide 40mg tablet PO SCH ×2 (10:03→21:44)
[2018-08-22] MEDS: multivitamins, therapeutics tablet PO SCH (10:03)
[2018-08-22] MEDS: aspirin 81mg tablet.DR PO SCH (10:03)
[2018-08-22] MEDS: amLODIPine 5mg tablet PO SCH (10:05)
[2018-08-22 11:00] VITALS: BP 149/72
[2018-08-22] MEDS: insulin Lispro (HumaLOG) vial - multi-dose SQ SCH ×2 (14:16→19:29)
[2018-08-22 18:30] VITALS: BP 143/62
[2018-08-22] MEDS: diphenhydrAMINE 25mg capsule PO SCH (21:44)
[2018-08-22] MEDS: atorvastatin 20mg tablet PO SCH (21:44)
[2018-08-22] MEDS: insulin glargine (Lantus) pen - multi-dose SQ SCH (22:15)
[2018-08-23] VITALS: BP 140/72
[2018-08-23] MEDS: ipratropium/albuterol 3ml nebule NEB SCH ×6 (03:22→23:17)
[2018-08-23 05:21] LABS: BASOPHILS % (AUTO) 0.4 % (0-1); EOSINOPHILS # (AUTO) 0.2 X10'3 (0-0.9); EOSINOPHILS % (AUTO) 1.6 % (0-6); HEMATOCRIT 28.7 % (42.0-52.0); HEMOGLOBIN 9.3 g/dl (14.0-17.9); LYMPHOCYTES # (AUTO) 0.7 X10'3 (1.1-4.8); LYMPHOCYTES % (AUTO) 6.4 % (21-51); MEAN CORPUSCULAR HEMOGLOBIN 27.9 PG (27.0-31.0); MEAN CORPUSCULAR HGB CONC 32.4 % (33.0-36.5); MEAN PLATELET VOLUME 15.1 FL (7.4-10.4); MONOCYTES # (AUTO) 0.8 X10'3 (0-0.9); MONOCYTES % (AUTO) 7.1 % (2-12); NEUTROPHILS # (AUTO) 9.4 X10'3 (1.8-7.7); NEUTROPHILS % (AUTO) 84.5 % (42-75); PLATELET COUNT 197 X10'3 (140-440); RED BLOOD COUNT 3.33 X10'6 (4.70-6.10); RED CELL DISTRIBUTION WIDTH 14.1 % (11.5-14.5); WHITE BLOOD COUNT 11.2 X10'3 (4.5-11.0)
[2018-08-23 05:27] LABS: ALBUMIN 2.2 G/DL (3.4-5.0); ANION GAP 13 (8-16); BLOOD UREA NITROGEN 53 MG/DL (7-18); BUN/CREATININE RATIO 10.7 (5.4-32.0); CALCIUM 8.4 MG/DL (8.5-10.1); CHLORIDE 97 MMOL/L (99-107); CREATININE 4.95 MG/DL (0.60-1.10); GLUCOSE 141 MG/DL (70-104); MAGNESIUM 1.7 MG/DL (1.5-2.4); POTASSIUM 3.5 MMOL/L (3.5-5.1); SODIUM 137 MMOL/L (135-145); TOTAL CARBON DIOXIDE 27.2 MMOL/L (24-32); eGFR 12 ML/MIN
[2018-08-23 07:01] LABS: LARGE PLATELETS FEW; PLATELET ESTIMATE NORMAL
[2018-08-23 08:00] VITALS: BP 134/66
[2018-08-23] MEDS: K and/or MAG REPLACEMENT MC SCH (08:00)
[2018-08-23] MEDS ORDERED: heparin 1,000 units/ml 10ml inj HE ONE ×2 (08:00)
[2018-08-23] MEDS: heparin, porcine 5000 units/ml vial SQ SCH ×2 (08:00→20:00)
[2018-08-23] MEDS ORDERED: epoetin 20,000 units/ml inj IV ONE (08:00)
[2018-08-23] MEDS: amLODIPine 5mg tablet PO SCH (08:00)
[2018-08-23] MEDS ORDERED: heparin 1,000unit/ml 10ml vial 10 ML IV ONE (08:00)
[2018-08-23] MEDS ORDERED: normal saline 1000ml 250 ML IV PRN (08:00)
[2018-08-23] MEDS: furosemide 40mg tablet PO SCH ×2 (08:00→19:43)
[2018-08-23] MEDS: multivitamins, therapeutics tablet PO SCH (08:28)
[2018-08-23] MEDS: aspirin 81mg tablet.DR PO SCH (08:28)
[2018-08-23] MEDS: lactobacillus rhamnosus 10,000 MMU CELLS/CAPSULE PO SCH ×2 (08:28→19:43)
[2018-08-23] MEDS: citalopram 20mg tablet PO SCH (08:28)
[2018-08-23] MEDS: insulin Lispro (HumaLOG) vial - multi-dose SQ SCH (13:22)
[2018-08-23 18:30] VITALS: BP 134/70
[2018-08-23] MEDS: diphenhydrAMINE 25mg capsule PO SCH (21:28)
[2018-08-23] MEDS: atorvastatin 20mg tablet PO SCH (21:29)
[2018-08-23] MEDS: insulin glargine (Lantus) pen - multi-dose SQ SCH (21:31)
[2018-08-24] VITALS: BP 109/64
[2018-08-24] MEDS: ipratropium/albuterol 3ml nebule NEB SCH ×6 (03:29→23:21)
[2018-08-24 07:00] VITALS: BP 158/65
[2018-08-24] MEDS: K and/or MAG REPLACEMENT MC SCH (07:09)
[2018-08-24] MEDS: lactobacillus rhamnosus 10,000 MMU CELLS/CAPSULE PO SCH ×2 (07:11→20:24)
[2018-08-24] MEDS: citalopram 20mg tablet PO SCH (07:11)
[2018-08-24] MEDS: furosemide 40mg tablet PO SCH ×2 (07:11→20:24)
[2018-08-24] MEDS: aspirin 81mg tablet.DR PO SCH (07:11)
[2018-08-24] MEDS: multivitamins, therapeutics tablet PO SCH (07:12)
[2018-08-24] MEDS: amLODIPine 5mg tablet PO SCH (07:12)
[2018-08-24] MEDS: heparin, porcine 5000 units/ml vial SQ SCH ×2 (07:12→20:24)
[2018-08-24] MEDS: insulin Lispro (HumaLOG) vial - multi-dose SQ SCH ×2 (12:56→19:02)
[2018-08-24 20:00] VITALS: BP 154/70
[2018-08-24] MEDS: atorvastatin 20mg tablet PO SCH (20:24)
[2018-08-24] MEDS: diphenhydrAMINE 25mg capsule PO SCH (20:24)
[2018-08-24] MEDS: insulin glargine (Lantus) pen - multi-dose SQ SCH (21:21)
[2018-08-25] VITALS: BP 142/72
[2018-08-25] MEDS: ipratropium/albuterol 3ml nebule NEB SCH ×6 (03:20→23:37)
[2018-08-25 07:00] VITALS: BP 148/68
[2018-08-25] MEDS: lactobacillus rhamnosus 10,000 MMU CELLS/CAPSULE PO SCH ×2 (07:57→19:16)
[2018-08-25] MEDS: aspirin 81mg tablet.DR PO SCH (07:57)
[2018-08-25] MEDS: citalopram 20mg tablet PO SCH (07:57)
[2018-08-25] MEDS: multivitamins, therapeutics tablet PO SCH (07:57)
[2018-08-25] MEDS: furosemide 40mg tablet PO SCH ×2 (07:57→19:16)
[2018-08-25] MEDS: heparin, porcine 5000 units/ml vial SQ SCH ×2 (07:58→19:16)
[2018-08-25] MEDS ORDERED: normal saline 1000ml 250 ML IV PRN (08:00)
[2018-08-25] MEDS ORDERED: heparin 1,000 units/ml 10ml inj HE ONE ×2 (08:00)
[2018-08-25] MEDS ORDERED: heparin 1,000unit/ml 10ml vial 10 ML IV ONE (08:00)
[2018-08-25] MEDS: amLODIPine 5mg tablet PO SCH (08:00)
[2018-08-25] MEDS ORDERED: epoetin 20,000 units/ml inj IV ONE (08:00)
[2018-08-25] MEDS: K and/or MAG REPLACEMENT MC SCH (08:00)
[2018-08-25] MEDS: insulin Lispro (HumaLOG) vial - multi-dose SQ SCH ×2 (08:07→21:06)
[2018-08-25 10:16] LABS: BASOPHILS % (AUTO) 0.2 % (0-1); EOSINOPHILS # (AUTO) 0.1 X10'3 (0-0.9); EOSINOPHILS % (AUTO) 1.4 % (0-6); HEMATOCRIT 27.4 % (42.0-52.0); HEMOGLOBIN 8.9 g/dl (14.0-17.9); LYMPHOCYTES # (AUTO) 0.7 X10'3 (1.1-4.8); LYMPHOCYTES % (AUTO) 7.2 % (21-51); MEAN CORPUSCULAR HEMOGLOBIN 27.8 PG (27.0-31.0); MEAN CORPUSCULAR HGB CONC 32.3 % (33.0-36.5); MEAN CORPUSCULAR VOLUME 86.2 FL (78-98); MEAN PLATELET VOLUME 10.8 FL (7.4-10.4); MONOCYTES % (AUTO) 10.1 % (2-12); NEUTROPHILS # (AUTO) 7.8 X10'3 (1.8-7.7); NEUTROPHILS % (AUTO) 81.1 % (42-75); PLATELET COUNT 227 X10'3 (140-440); RED BLOOD COUNT 3.18 X10'6 (4.70-6.10); RED CELL DISTRIBUTION WIDTH 14.3 % (11.5-14.5); WHITE BLOOD COUNT 9.6 X10'3 (4.5-11.0)
[2018-08-25 10:53] LABS: LARGE PLATELETS FEW; PLATELET ESTIMATE NORMAL
[2018-08-25 11:00] VITALS: BP 146/85
[2018-08-25 13:00] VITALS: BP 147/76
[2018-08-25 20:00] VITALS: BP 147/60
[2018-08-25] MEDS: insulin glargine (Lantus) pen - multi-dose SQ SCH (21:05)
[2018-08-25] MEDS: diphenhydrAMINE 25mg capsule PO SCH (21:09)
[2018-08-25] MEDS: atorvastatin 20mg tablet PO SCH (21:09)
[2018-08-26] VITALS: BP 145/73
[2018-08-26] MEDS: ipratropium/albuterol 3ml nebule NEB SCH ×6 (03:14→23:01)
[2018-08-26 07:09] VITALS: BP 140/78
[2018-08-26] MEDS: amLODIPine 5mg tablet PO SCH (07:52)
[2018-08-26] MEDS: aspirin 81mg tablet.DR PO SCH (07:52)
[2018-08-26] MEDS: lactobacillus rhamnosus 10,000 MMU CELLS/CAPSULE PO SCH ×2 (07:52→21:49)
[2018-08-26] MEDS: multivitamins, therapeutics tablet PO SCH (07:52)
[2018-08-26] MEDS: citalopram 20mg tablet PO SCH (07:52)
[2018-08-26] MEDS: furosemide 40mg tablet PO SCH ×2 (07:52→21:49)
[2018-08-26] MEDS: heparin, porcine 5000 units/ml vial SQ SCH ×2 (07:53→21:50)
[2018-08-26] MEDS: K and/or MAG REPLACEMENT MC SCH (08:00)
[2018-08-26] MEDS: insulin Lispro (HumaLOG) vial - multi-dose SQ SCH ×3 (08:29→18:57)
[2018-08-26 13:00] VITALS: BP 129/65
[2018-08-26 15:57] VITALS: BP 137/66
[2018-08-26 20:00] VITALS: BP 132/58
[2018-08-26] MEDS: insulin glargine (Lantus) pen - multi-dose SQ SCH (21:46)
[2018-08-26] MEDS: diphenhydrAMINE 25mg capsule PO SCH (21:48)
[2018-08-26] MEDS: atorvastatin 20mg tablet PO SCH (21:49)
[2018-08-27] VITALS: BP 135/65
[2018-08-27] MEDS: ipratropium/albuterol 3ml nebule NEB SCH ×5 (03:09→18:57)
[2018-08-27 05:13] LABS: HEMATOCRIT 28.6 % (42.0-52.0); HEMOGLOBIN 9.2 g/dl (14.0-17.9); MEAN CORPUSCULAR HEMOGLOBIN 27.5 PG (27.0-31.0); MEAN CORPUSCULAR HGB CONC 32.2 % (33.0-36.5); MEAN CORPUSCULAR VOLUME 85.5 FL (78-98); MEAN PLATELET VOLUME 11.4 FL (7.4-10.4); PLATELET COUNT 209 X10'3 (140-440); RED BLOOD COUNT 3.34 X10'6 (4.70-6.10); RED CELL DISTRIBUTION WIDTH 14.7 % (11.5-14.5); WHITE BLOOD COUNT 8.9 X10'3 (4.5-11.0)
[2018-08-27 07:21] VITALS: BP 133/70
[2018-08-27] MEDS: K and/or MAG REPLACEMENT MC SCH (07:31)
[2018-08-27] MEDS: aspirin 81mg tablet.DR PO SCH (07:35)
[2018-08-27] MEDS: citalopram 20mg tablet PO SCH (07:35)
[2018-08-27] MEDS: lactobacillus rhamnosus 10,000 MMU CELLS/CAPSULE PO SCH (07:35)
[2018-08-27] MEDS: furosemide 40mg tablet PO SCH (07:36)
[2018-08-27] MEDS: multivitamins, therapeutics tablet PO SCH (07:36)
[2018-08-27] MEDS: amLODIPine 5mg tablet PO SCH (07:45)
[2018-08-27] MEDS: heparin, porcine 5000 units/ml vial SQ SCH (07:46)
[2018-08-27] MEDS ORDERED: epoetin 20,000 units/ml inj IV ONE (08:00)
[2018-08-27] MEDS ORDERED: heparin 1,000unit/ml 10ml vial 10 ML IV ONE (08:00)
[2018-08-27] MEDS ORDERED: heparin 1,000 units/ml 10ml inj HE ONE ×2 (08:00)
[2018-08-27] MEDS ORDERED: normal saline 1000ml 250 ML IV PRN (08:00)
[2018-08-27] MEDS: insulin Lispro (HumaLOG) vial - multi-dose SQ SCH ×2 (09:52→13:47)
[2018-08-27 12:00] VITALS: BP 115/67
[2018-08-27] MEDS ORDERED: FURO40TA4 PO (15:50)
[2018-08-27 19:00] VITALS: BP 135/72
== END 2018-08-27 19:37 | disposition home health service (06) | DRG 673 ==
LOC: ER 15:31 → ED HOLD 17:48 → SUR 3N 21:30
PROVIDERS: ADMIT Hospitalist; ATTEND Family Medicine
PROC: CT631ZZ Nonimaging Nuclear Medicine Assay of Kidneys, Ureters and Bladder using Technetium 99m (Tc-99m) (ICD-10-PCS; 2018-08-13)
PROC: 0JH63XZ Insertion of Tunneled Vascular Access Device into Chest Subcutaneous Tissue and Fascia, Percutaneous Approach (ICD-10-PCS; 2018-08-16)
PROC: 5A1D70Z Performance of Urinary Filtration, Intermittent, Less than 6 Hours Per Day (ICD-10-PCS; 2018-08-16)
PROC: 02HV33Z Insertion of Infusion Device into Superior Vena Cava, Percutaneous Approach (ICD-10-PCS; 2018-08-16)
PROC: B5181ZA Fluoroscopy of Superior Vena Cava using Low Osmolar Contrast, Guidance (ICD-10-PCS; 2018-08-16)
PROC: B548ZZA Ultrasonography of Superior Vena Cava, Guidance (ICD-10-PCS; 2018-08-16)
PROC: 5A1D70Z Performance of Urinary Filtration, Intermittent, Less than 6 Hours Per Day (ICD-10-PCS; 2018-08-17)
PROC: 5A1D70Z Performance of Urinary Filtration, Intermittent, Less than 6 Hours Per Day (ICD-10-PCS; 2018-08-20)
PROC: 5A1D70Z Performance of Urinary Filtration, Intermittent, Less than 6 Hours Per Day (ICD-10-PCS; 2018-08-23)
PROC: 5A1D70Z Performance of Urinary Filtration, Intermittent, Less than 6 Hours Per Day (ICD-10-PCS; 2018-08-25)
PROC: 5A1D70Z Performance of Urinary Filtration, Intermittent, Less than 6 Hours Per Day (ICD-10-PCS; principal; 2018-08-27)
DX: N17.0 Acute kidney failure with tubular necrosis (principal); J69.0 Pneumonitis due to inhalation of food and vomit; E43 Unspecified severe protein-calorie malnutrition; E87.1 Hypo-osmolality and hyponatremia; E87.0 Hyperosmolality and hypernatremia; N18.6 End stage renal disease; D63.8 Anemia in other chronic diseases classified elsewhere; E11.22 Type 2 diabetes mellitus with diabetic chronic kidney disease; E87.6 Hypokalemia; F03.90 Unspecified dementia, unspecified severity, without behavioral disturbance, psychotic disturbance, mood disturbance, and anxiety; F32.9 Major depressive disorder, single episode, unspecified; G47.30 Sleep apnea, unspecified; G89.29 Other chronic pain; I25.10 Atherosclerotic heart disease of native coronary artery without angina pectoris; M54.9 Dorsalgia, unspecified; R47.1 Dysarthria and anarthria; R06.03 Acute respiratory distress; D69.6 Thrombocytopenia, unspecified; K56.41 Fecal impaction; I69.391 Dysphagia following cerebral infarction; Z99.2 Dependence on renal dialysis; Z99.3 Dependence on wheelchair; Z79.82 Long term (current) use of aspirin; Z79.84 Long term (current) use of oral hypoglycemic drugs; Z79.899 Other long term (current) drug therapy; Z68.24 Body mass index [BMI] 24.0-24.9, adult
CPT/HCPCS: 36415; 36558; 71045; 74176; 76775; 76937; 77001; 78707; 80048; 80053; 82272; 82570; 82728; 82948; 83036; 83540; 83550; 83605; 83735; 83880; 84100; 84145; 84155; 84156; 84165; 84166; 84300; 84484; 85025; 85027; 85610; 85730; 87040; 87070; 87207; 87340; 87502; 87503; 92616; 93005; 93306; 94640; 94667; 94668; 94760; 96374; 96375; 97110; 97112; 97116; 97530; 97535; 99152; 99153; 99285; A9270; A9562; C1750; C1894; G0257; G0378; J0360; J0885; J1644; J1650; J1815; J1940; J2150; J2250; J2405; J2543; J3010; J3480; J3490; J7030; P9045; Q0163

== ENCOUNTER 2018-09-19 17:38 | Emergency (ER) | payer MEDICARE, MEDICAID ==
[~2018-09-19] VITALS: Ht 177.8 cm; Wt 47.7 kg
[~2018-09-19 17:38] MED LIST changes: +FURO40TA4 PO; -HYDR-4383 PO; -LOSA50TA3 PO; -POLY17PO10 PO; -amLODIPine 5mg tablet PO ONE
[2018-09-19 18:26] LABS: BASOPHILS % (AUTO) 0.2 % (0-1); EOSINOPHILS # (AUTO) 0.2 X10'3 (0-0.9); EOSINOPHILS % (AUTO) 2.4 % (0-6); HEMATOCRIT 35.1 % (42.0-52.0); HEMOGLOBIN 11.3 g/dl (14.0-17.9); LYMPHOCYTES # (AUTO) 0.8 X10'3 (1.1-4.8); LYMPHOCYTES % (AUTO) 8.2 % (21-51); MEAN CORPUSCULAR HEMOGLOBIN 27.7 PG (27.0-31.0); MEAN CORPUSCULAR HGB CONC 32.3 % (33.0-36.5); MEAN CORPUSCULAR VOLUME 85.9 FL (78-98); MEAN PLATELET VOLUME 10.9 FL (7.4-10.4); MONOCYTES # (AUTO) 0.3 X10'3 (0-0.9); MONOCYTES % (AUTO) 3.4 % (2-12); NEUTROPHILS # (AUTO) 8.6 X10'3 (1.8-7.7); NEUTROPHILS % (AUTO) 85.8 % (42-75); PLATELET COUNT 214 X10'3 (140-440); RED BLOOD COUNT 4.09 X10'6 (4.70-6.10); WHITE BLOOD COUNT 10.1 X10'3 (4.5-11.0)
[2018-09-19 18:37] LABS: ALANINE AMINOTRANSFERASE 14 U/L (12-78); ALBUMIN 2.9 G/DL (3.4-5.0); ALBUMIN/GLOBULIN RATIO 0.7 (1.1-1.5); ALKALINE PHOSPHATASE 87 IU/L (46-116); ANION GAP 8 (8-16); ASPARTATE AMINO TRANSFERASE 11 U/L (10-37); BILIRUBIN,TOTAL 0.6 MG/DL (0.1-1.0); BLOOD UREA NITROGEN 18 MG/DL (7-18); CALCIUM 8.5 MG/DL (8.5-10.1); CHLORIDE 101 MMOL/L (99-107); CREATININE 2.25 MG/DL (0.60-1.10); GLUCOSE 86 MG/DL (70-104); INR 1.1 INR; MAGNESIUM 1.8 MG/DL (1.5-2.4); POTASSIUM 3.8 MMOL/L (3.5-5.1); PROTHROMBIN TIME 11.3 SECONDS (9.0-12.0); SODIUM 142 MMOL/L (135-145); TOTAL PROTEIN 6.8 G/DL (6.4-8.2); eGFR 29 ML/MIN
[2018-09-19 18:38] LABS: PARTIAL THROMBOPLASTIN TIME 28 SECONDS (22-32)
[2018-09-19 18:51] LABS: LARGE PLATELETS FEW; PLATELET ESTIMATE NORMAL
[2018-09-19] MEDS ORDERED: levoFLOXACIN 250mg tablet PO ONE (19:45)
[2018-09-19] MEDS ORDERED: ondansetron/PF 4mg/2ml inj IV ONE (20:00)
[2018-09-19] MEDS ORDERED: LEVO250T58 PO (21:40)
[2018-09-20 01:48] VITALS: BP 141/53
== END 2018-09-20 01:50 | disposition home or self-care (01) ==
LOC: ER 17:39
DX: J44.1 Chronic obstructive pulmonary disease with (acute) exacerbation (principal); I25.10 Atherosclerotic heart disease of native coronary artery without angina pectoris; E11.9 Type 2 diabetes mellitus without complications; G89.29 Other chronic pain; Z86.73 Personal history of transient ischemic attack (TIA), and cerebral infarction without residual deficits; Z98.61 Coronary angioplasty status; Z79.82 Long term (current) use of aspirin
CPT/HCPCS: 36415; 71045; 80053; 83605; 83735; 84145; 85025; 85610; 85730; 87040; 87502; 87503; 93005; 96374; 99284; J2405

== ENCOUNTER 2018-10-08 13:09 | Emergency (ER) | payer MEDICARE, MEDICAID ==
[~2018-10-08] VITALS: Ht 177.8 cm; Wt 59.0 kg
[~2018-10-08 13:09] MED LIST changes: -CYAN-19 IM; -DULR RC; +LEVO250T58 PO
[2018-10-08] MEDS ORDERED: normal saline 1000ML IV soln IVB ONE ×2 (14:30→16:10)
[2018-10-08 14:52] LABS: HEMATOCRIT 36.3 % (42.0-52.0); HEMOGLOBIN 11.6 g/dl (14.0-17.9); MEAN CORPUSCULAR HEMOGLOBIN 27.8 PG (27.0-31.0); MEAN CORPUSCULAR HGB CONC 32.1 % (33.0-36.5); MEAN CORPUSCULAR VOLUME 86.8 FL (78-98); MEAN PLATELET VOLUME 11.8 FL (7.4-10.4); PLATELET COUNT 193 X10'3 (140-440); RED BLOOD COUNT 4.18 X10'6 (4.70-6.10); RED CELL DISTRIBUTION WIDTH 18.6 % (11.5-14.5); WHITE BLOOD COUNT 17.1 X10'3 (4.5-11.0)
[2018-10-08 15:02] LABS: AMMONIA < 10 UMOL/L (11-32)
[2018-10-08 15:05] LABS: INR 1.1 INR; PARTIAL THROMBOPLASTIN TIME 28 SECONDS (22-32); PROTHROMBIN TIME 11.3 SECONDS (9.0-12.0)
[2018-10-08 15:13] LABS: ALANINE AMINOTRANSFERASE 20 U/L (12-78); ALBUMIN 2.4 G/DL (3.4-5.0); ALBUMIN/GLOBULIN RATIO 0.6 (1.1-1.5); ALKALINE PHOSPHATASE 97 IU/L (46-116); ANION GAP 0 (8-16); ASPARTATE AMINO TRANSFERASE 18 U/L (10-37); BILIRUBIN,TOTAL 0.6 MG/DL (0.1-1.0); BLOOD UREA NITROGEN 60 MG/DL (7-18); CALCIUM 8.3 MG/DL (8.5-10.1); CHLORIDE 98 MMOL/L (99-107); CREATININE 4.29 MG/DL (0.60-1.10); GLUCOSE 159 MG/DL (70-104); LIPASE 186 U/L (73-393); MAGNESIUM 2.1 MG/DL (1.5-2.4); POTASSIUM 3.5 MMOL/L (3.5-5.1); SODIUM 132 MMOL/L (135-145); TOTAL CARBON DIOXIDE 33.9 MMOL/L (24-32); TOTAL PROTEIN 6.2 G/DL (6.4-8.2); eGFR 14 ML/MIN
[2018-10-08 15:18] LABS: ANISOCYTOSIS 2+; PLATELET ESTIMATE NORMAL; TOTAL CELLS COUNTED 100
[2018-10-08] MEDS ORDERED: vancomycin/NS 1 GM ADD-VANTAGE 250 ML IV ONE (16:05)
[2018-10-08] MEDS ORDERED: CefTRIAXone/D5W-Rocephin 1gm 50 ML IV ONE (16:05)
[2018-10-08 16:26] VITALS: BP 120/57
--- NOTE | 2018-10-09 10:38 | NUR ---
LAB CALLED WITH PRELIMINARY BC RESULTS OF GRAM+ COCCI IN CLUSTERS IN THE AROBIC BOTTLE, DRAWN 10/08/18 @[id number]
--- NOTE | 2018-10-09 14:30 | NUR ---
LAB CALLED WITH POSITIVE BC FROM THE ANEROBIC BOTTLE; GRAM + COCCI IN CLUSTERS
== END 2018-10-08 16:40 | disposition home or self-care (01) ==
LOC: ER 13:10
DX: E86.0 Dehydration (principal); I95.9 Hypotension, unspecified; D72.829 Elevated white blood cell count, unspecified; E11.22 Type 2 diabetes mellitus with diabetic chronic kidney disease; N18.9 Chronic kidney disease, unspecified; I25.10 Atherosclerotic heart disease of native coronary artery without angina pectoris; G89.29 Other chronic pain; Z86.73 Personal history of transient ischemic attack (TIA), and cerebral infarction without residual deficits; Z95.5 Presence of coronary angioplasty implant and graft; Z98.890 Other specified postprocedural states; Z79.82 Long term (current) use of aspirin; Z79.899 Other long term (current) drug therapy; Z99.2 Dependence on renal dialysis
CPT/HCPCS: 36415; 71045; 80053; 82140; 83605; 83690; 83735; 83874; 85025; 85610; 85730; 87040; 87077; 96361; 96365; 99284; J0696; J7030

== ENCOUNTER 2018-10-12 10:46 | Inpatient (IN) | payer MEDICARE, MEDICAID ==
[~2018-10-12] VITALS: Ht 177.8 cm; Wt 59.4 kg
[~2018-10-12 10:46] MED LIST changes: -DIPH50CA4 PF; +DIPH50CA4 PO
[2018-10-12] MEDS ORDERED: vancomycin/NS 1 GM ADD-VANTAGE 250 ML IV ONE (11:20)
--- NOTE | 2018-10-12 11:38 | NUR ---
PER DR HERNÁNDEZ HOLD VANCOMYCIN UNTIL VANCO LEVEL KNOWN
--- NOTE | 2018-10-12 11:47 | NUR ---
GRANDSON DURGA SANCHEZ [phone] IS HIS CAREGIVER: LIVES WITH HIM PER GRANDSON PATIENT IS NON AMBULATORY AND DRINK THICK LIQUID WITH A PUREED DIET
[2018-10-12] MEDS ORDERED: acetaminophen 325mg tablet PO PRN (11:50)
[2018-10-12] MEDS ORDERED: vancomycin/NS 1 GM ADD-VANTAGE 250 ML IV PRN (11:50)
[2018-10-12 11:53] LABS: BASOPHILS % (AUTO) 0.3 % (0-1); EOSINOPHILS % (AUTO) 0.3 % (0-6); HEMATOCRIT 34.6 % (42.0-52.0); HEMOGLOBIN 10.9 g/dl (14.0-17.9); LYMPHOCYTES # (AUTO) 0.7 X10'3 (1.1-4.8); LYMPHOCYTES % (AUTO) 5.7 % (21-51); MEAN CORPUSCULAR HEMOGLOBIN 27.3 PG (27.0-31.0); MEAN CORPUSCULAR HGB CONC 31.5 % (33.0-36.5); MEAN CORPUSCULAR VOLUME 86.5 FL (78-98); MEAN PLATELET VOLUME 11.3 FL (7.4-10.4); MONOCYTES # (AUTO) 0.5 X10'3 (0-0.9); MONOCYTES % (AUTO) 4.3 % (2-12); NEUTROPHILS # (AUTO) 10.4 X10'3 (1.8-7.7); NEUTROPHILS % (AUTO) 89.4 % (42-75); PLATELET COUNT 196 X10'3 (140-440); RED CELL DISTRIBUTION WIDTH 18.3 % (11.5-14.5); WHITE BLOOD COUNT 11.6 X10'3 (4.5-11.0)
[2018-10-12 12:03] LABS: INR 1.1 INR; PARTIAL THROMBOPLASTIN TIME 27 SECONDS (22-32); PROTHROMBIN TIME 10.9 SECONDS (9.0-12.0)
[2018-10-12 12:07] LABS: ALANINE AMINOTRANSFERASE 31 U/L (12-78); ALBUMIN 2.2 G/DL (3.4-5.0); ALBUMIN/GLOBULIN RATIO 0.5 (1.1-1.5); ALKALINE PHOSPHATASE 106 IU/L (46-116); ANION GAP 10 (8-16); ASPARTATE AMINO TRANSFERASE 16 U/L (10-37); BILIRUBIN,TOTAL 0.5 MG/DL (0.1-1.0); BLOOD UREA NITROGEN 48 MG/DL (7-18); CALCIUM 8.5 MG/DL (8.5-10.1); CHLORIDE 102 MMOL/L (99-107); CREATININE 3.42 MG/DL (0.60-1.10); GLUCOSE 153 MG/DL (70-104); POTASSIUM 4.4 MMOL/L (3.5-5.1); SODIUM 138 MMOL/L (135-145); TOTAL CARBON DIOXIDE 25.7 MMOL/L (24-32); TOTAL PROTEIN 6.3 G/DL (6.4-8.2); VANCOMYCIN,RANDOM 13.3 UG/ML; eGFR 18 ML/MIN
[2018-10-12] MEDS ORDERED: ACET-2389 PO (12:10)
[2018-10-12] MEDS ORDERED: LIDOcaine 1% 30ml preserv. free vial SQ STA (12:26)
[2018-10-12] MEDS ORDERED: IPRA3AMP31 IH (12:44)
[2018-10-12] MEDS ORDERED: LOSA25TA41 PO (12:46)
--- NOTE | 2018-10-12 12:46 | NUR ---
Angely HARDY, ESTEFANIA IR AT BEDSIDE AND REMOVED RIGHT CHEST LIONEL CATHETER GAUZE AND 2 TEGADERMS PLACED AFTER PRESSSURE HELD BY OUTPATIENT INTERVIEWING CLERK
[2018-10-12] MEDS ORDERED: VANC1VIA21 IV (12:49)
[2018-10-12 12:53] LABS: CLARITY,URINE SLIGHTLY CLOUDY (Clear); COLOR,URINE YELLOW (Yellow); GLUCOSE, URINE NEGATIVE (Neg); KETONES,URINE NEGATIVE (Neg); LEUKOCYTE ESTERASE ,URINE SMALL (Neg); NITRITES, URINE NEGATIVE (Neg); OCCULT BLOOD,URINE MODERATE (Neg); PH,URINE 5.5 (4.8-8.0); PROTEIN,URINE 100 mg/dl (Neg); UA COLLECTION TYPE OTHER
[2018-10-12 13:08] LABS: BACTERIA,URINE 4+ /HPF (Neg); COARSE GRANULAR CAST 0-3 /LPF (NEGATIVE); WBC,URINE TNTC /HPF (0-4)
[2018-10-12 13:09] LABS: HYALINE CASTS 0-3 /LPF (NEGATIVE)
[2018-10-12 13:10] LABS: SQUAMOUS EPITHELIAL CELL,UR NONE SEEN /LPF (FEW)
[2018-10-12] MEDS ORDERED: vancomycin inj 500 MG in normal saline 100ml IV soln 100 ML IV ONE (13:30)
--- NOTE | 2018-10-12 15:20 | NUR ---
BEDSIDE ECHO IN PROGRESS
--- NOTE | 2018-10-12 15:20 | NUR ---
RIGHT BUTTOCK WOUND PIG MACHINE OPERATOR HELPER PHOTO IN CHART
--- NOTE | 2018-10-12 16:11 | NUR ---
PHONE REPORT TO EV AUSTIN PCU. AYAZ GOING TO ROOM 3020A MONITORED ON KASI AUSTIN. JOSE G'S GRANDSON TOOK ALL PATIENT'S BELONGINGS HOME. VITALS, LABS, MEDICATIONS DISCUSSED
[2018-10-12 17:00] VITALS: BP 111/84
[2018-10-12 18:00] VITALS: BP 141/61
[2018-10-12 18:13] LABS: PLATELET ESTIMATE NORMAL; TOTAL CELLS COUNTED 100
[2018-10-12 18:14] LABS: ANISOCYTOSIS 2+
[2018-10-12 18:15] LABS: ELLIPTOCYTES FEW; POIKILOCYTOSIS 1+
[2018-10-12 18:18] LABS: TOXIC GRANULATION 2+
--- NOTE | 2018-10-12 18:22 | NUR ---
Problems reprioritized. Patient report given, questions answered & plan of care reviewed with NORMAN Hubbard.
[2018-10-12] MEDS: ipratropium/albuterol 3ml nebule IH SCH ×2 (18:50→23:20)
[2018-10-12] MEDS: docusate sod 100mg capsule PO SCH (20:54)
[2018-10-12] MEDS: atorvastatin 20mg tablet PO SCH (20:56)
[2018-10-12] MEDS: diphenhydrAMINE 25mg capsule PO SCH (20:58)
[2018-10-12] MEDS: furosemide 40mg tablet PO SCH (20:58)
[2018-10-12 22:00] VITALS: BP 160/60
[2018-10-13 02:00] VITALS: BP 149/63
[2018-10-13] MEDS: ipratropium/albuterol 3ml nebule IH SCH ×6 (02:58→23:40)
[2018-10-13] MEDS: VANCOMYCIN LEVEL IV SCH (03:00)
[2018-10-13 05:09] LABS: BASOPHILS % (AUTO) 0.1 % (0-1); EOSINOPHILS # (AUTO) 0.3 X10'3 (0-0.9); EOSINOPHILS % (AUTO) 2.7 % (0-6); HEMATOCRIT 32.9 % (42.0-52.0); HEMOGLOBIN 10.5 g/dl (14.0-17.9); LYMPHOCYTES # (AUTO) 0.7 X10'3 (1.1-4.8); LYMPHOCYTES % (AUTO) 6.6 % (21-51); MEAN CORPUSCULAR HEMOGLOBIN 27.5 PG (27.0-31.0); MEAN CORPUSCULAR HGB CONC 32.1 % (33.0-36.5); MEAN CORPUSCULAR VOLUME 85.6 FL (78-98); MEAN PLATELET VOLUME 12.1 FL (7.4-10.4); MONOCYTES # (AUTO) 0.6 X10'3 (0-0.9); MONOCYTES % (AUTO) 5.8 % (2-12); NEUTROPHILS # (AUTO) 8.8 X10'3 (1.8-7.7); NEUTROPHILS % (AUTO) 84.8 % (42-75); PLATELET COUNT 209 X10'3 (140-440); RED BLOOD COUNT 3.84 X10'6 (4.70-6.10); RED CELL DISTRIBUTION WIDTH 18.8 % (11.5-14.5); WHITE BLOOD COUNT 10.4 X10'3 (4.5-11.0)
[2018-10-13 05:33] LABS: ALANINE AMINOTRANSFERASE 28 U/L (12-78); ALBUMIN 2.1 G/DL (3.4-5.0); ALBUMIN/GLOBULIN RATIO 0.5 (1.1-1.5); ALKALINE PHOSPHATASE 99 IU/L (46-116); ANION GAP 10 (8-16); ASPARTATE AMINO TRANSFERASE 14 U/L (10-37); BILIRUBIN,TOTAL 0.4 MG/DL (0.1-1.0); BLOOD UREA NITROGEN 51 MG/DL (7-18); CALCIUM 8.2 MG/DL (8.5-10.1); CHLORIDE 104 MMOL/L (99-107); CREATININE 3.65 MG/DL (0.60-1.10); GLUCOSE 133 MG/DL (70-104); PHOSPHORUS 3.5 MG/DL (2.3-4.5); POTASSIUM 3.8 MMOL/L (3.5-5.1); SODIUM 140 MMOL/L (135-145); TOTAL CARBON DIOXIDE 25.9 MMOL/L (24-32); TOTAL PROTEIN 6.1 G/DL (6.4-8.2); eGFR 17 ML/MIN
[2018-10-13 06:00] VITALS: BP 141/61
--- NOTE | 2018-10-13 06:11 | NUR ---
Patient in room PCU 3020. I have received report from NORMAN Hubbard and had the opportunity to ask questions and assume patient care.
--- NOTE | 2018-10-13 06:31 | NUR ---
Problems reprioritized. Patient report given, questions answered & plan of care reviewed with Marcus AUSTIN.
[2018-10-13] MEDS ORDERED: dextrose 50%-water 50ml dispensing syringe IV PRN ×2 (07:05)
[2018-10-13] MEDS ORDERED: glucagon, human recombinant 1mg kit SUBCUT PRN (07:05)
[2018-10-13] MEDS ORDERED: MESSAGE TO PHARMACY PO ONE (07:05)
[2018-10-13] MEDS ORDERED: dextrose ORAL solution 15 GM/59 ML bottle PO PRN (07:05)
[2018-10-13] MEDS: glipizide 5mg tablet PO SCH ×2 (07:11→07:29)
[2018-10-13] MEDS: furosemide 40mg tablet PO SCH ×2 (07:28→20:20)
[2018-10-13] MEDS: losartan 25mg tablet PO SCH (07:28)
[2018-10-13] MEDS: docusate sod 100mg capsule PO SCH ×2 (07:28→20:20)
[2018-10-13] MEDS: amLODIPine 5mg tablet PO SCH (07:28)
[2018-10-13] MEDS: citalopram 20mg tablet PO SCH (07:28)
[2018-10-13] MEDS: multivitamins, therapeutics tablet PO SCH (07:28)
[2018-10-13] MEDS: aspirin 81mg tablet.DR PO SCH (07:29)
--- NOTE | 2018-10-13 09:03 | NUR ---
Called Dr Jesus about + blood cultures, Dr Jesus will come up to see pt.
--- NOTE | 2018-10-13 10:27 | NUR ---
Nutrition consult: Pureed honey thick liquid diet. Pt recently admit and received BSS by DATA PROCESSING AUDITOR 08/25/18 with recommendations of pureed food with thickened liquid which pt was tolerating. Per RN notes patient's grandson states pt follows a pureed thick liquid diet at home. Pt currently on renal pureed diet with honey thick liquids with documented PO intake 100% meeting nutrient needs. Will continue to follow and make recommendations as appropriate. Addendum: 10/13/18 at [address] Amended: Links added.
[2018-10-13 11:00] VITALS: BP 133/57
--- NOTE | 2018-10-13 13:31 | NUR ---
Per Dr Jesus put on Insulin if next blood sugar 160 and up
[2018-10-13 15:00] VITALS: BP 156/61
[2018-10-13 18:00] VITALS: BP 160/74
--- NOTE | 2018-10-13 18:12 | NUR ---
Problems reprioritized. Patient report given, questions answered & plan of care reviewed with NORMAN Pereira.
--- NOTE | 2018-10-13 18:59 | NUR ---
Patient in room PCU 3020. I have received report from Marcus AUSTIN and had the opportunity to ask questions and assume patient care.
[2018-10-13] MEDS: atorvastatin 20mg tablet PO SCH (20:19)
[2018-10-13] MEDS: diphenhydrAMINE 25mg capsule PO SCH (20:19)
[2018-10-13] MEDS: lactobacillus rhamnosus 10,000 MMU CELLS/CAPSULE PO SCH (20:20)
[2018-10-13] MEDS: insulin glargine (Lantus) pen - multi-dose SQ SCH (21:00)
[2018-10-13 22:00] VITALS: BP 135/58
[2018-10-14 02:00] VITALS: BP 125/60
[2018-10-14] MEDS: VANCOMYCIN LEVEL IV SCH (02:08)
[2018-10-14] MEDS: ipratropium/albuterol 3ml nebule IH SCH ×6 (03:30→23:04)
[2018-10-14 06:00] VITALS: BP 144/63
--- NOTE | 2018-10-14 06:02 | NUR ---
Problems reprioritized. Patient report given, questions answered & plan of care reviewed with Marcus AUSTIN.
[2018-10-14 06:09] LABS: BASOPHILS % (AUTO) 0 % (0-1); EOSINOPHILS # (AUTO) 0.3 X10'3 (0-0.9); EOSINOPHILS % (AUTO) 3.1 % (0-6); HEMATOCRIT 30.7 % (42.0-52.0); HEMOGLOBIN 10.1 g/dl (14.0-17.9); LYMPHOCYTES # (AUTO) 0.8 X10'3 (1.1-4.8); LYMPHOCYTES % (AUTO) 8.7 % (21-51); MEAN CORPUSCULAR HEMOGLOBIN 27.8 PG (27.0-31.0); MEAN CORPUSCULAR HGB CONC 32.8 % (33.0-36.5); MEAN CORPUSCULAR VOLUME 84.7 FL (78-98); MEAN PLATELET VOLUME 11.4 FL (7.4-10.4); MONOCYTES # (AUTO) 0.6 X10'3 (0-0.9); MONOCYTES % (AUTO) 6.8 % (2-12); NEUTROPHILS # (AUTO) 7.8 X10'3 (1.8-7.7); NEUTROPHILS % (AUTO) 81.4 % (42-75); PLATELET COUNT 225 X10'3 (140-440); RED BLOOD COUNT 3.63 X10'6 (4.70-6.10); WHITE BLOOD COUNT 9.6 X10'3 (4.5-11.0)
--- NOTE | 2018-10-14 06:17 | NUR ---
Patient in room PCU 3020. I have received report from NORMAN Pereira and had the opportunity to ask questions and assume patient care.
[2018-10-14 06:38] LABS: LARGE PLATELETS FEW; PLATELET ESTIMATE NORMAL
[2018-10-14 06:45] LABS: ALANINE AMINOTRANSFERASE 29 U/L (12-78); ALBUMIN/GLOBULIN RATIO 0.5 (1.1-1.5); ALKALINE PHOSPHATASE 87 IU/L (46-116); ANION GAP 11 (8-16); ASPARTATE AMINO TRANSFERASE 16 U/L (10-37); BILIRUBIN,TOTAL 0.5 MG/DL (0.1-1.0); BLOOD UREA NITROGEN 53 MG/DL (7-18); CALCIUM 7.9 MG/DL (8.5-10.1); CHLORIDE 101 MMOL/L (99-107); CREATININE 3.78 MG/DL (0.60-1.10); GLUCOSE 98 MG/DL (70-104); MAGNESIUM 1.8 MG/DL (1.5-2.4); PHOSPHORUS 3.7 MG/DL (2.3-4.5); POTASSIUM 3.6 MMOL/L (3.5-5.1); SODIUM 138 MMOL/L (135-145); TOTAL CARBON DIOXIDE 25.9 MMOL/L (24-32); VANCOMYCIN,RANDOM 13.8 UG/ML; eGFR 16 ML/MIN
[2018-10-14] MEDS: furosemide 40mg tablet PO SCH ×2 (07:10→20:23)
[2018-10-14] MEDS: losartan 25mg tablet PO SCH (07:10)
[2018-10-14] MEDS: lactobacillus rhamnosus 10,000 MMU CELLS/CAPSULE PO SCH ×2 (07:10→20:23)
[2018-10-14] MEDS: citalopram 20mg tablet PO SCH (07:10)
[2018-10-14] MEDS: aspirin 81mg tablet.DR PO SCH (07:10)
[2018-10-14] MEDS: glipizide 5mg tablet PO SCH (07:11)
[2018-10-14] MEDS: multivitamins, therapeutics tablet PO SCH (07:11)
[2018-10-14] MEDS: amLODIPine 5mg tablet PO SCH (07:11)
[2018-10-14] MEDS: docusate sod 100mg capsule PO SCH ×2 (07:11→20:23)
[2018-10-14] MEDS ORDERED: vancomycin/NS 1 GM ADD-VANTAGE 250 ML IV ONE (08:00)
[2018-10-14 11:00] VITALS: BP 135/57
[2018-10-14 15:00] VITALS: BP 125/65
--- NOTE | 2018-10-14 18:39 | NUR ---
Problems reprioritized. Patient report given, questions answered & plan of care reviewed with NORMAN Bacon.
[2018-10-14 19:00] VITALS: BP 147/66
[2018-10-14] MEDS: insulin Lispro (HumaLOG) vial - multi-dose SQ SCH (19:56)
[2018-10-14] MEDS: atorvastatin 20mg tablet PO SCH (20:22)
[2018-10-14] MEDS: diphenhydrAMINE 25mg capsule PO SCH (20:23)
[2018-10-14] MEDS: insulin glargine (Lantus) pen - multi-dose SQ SCH (22:19)
[2018-10-14 23:00] VITALS: BP 157/62
[2018-10-15 03:00] VITALS: BP 148/57
[2018-10-15] MEDS: VANCOMYCIN LEVEL IV SCH (03:00)
[2018-10-15] MEDS: ipratropium/albuterol 3ml nebule IH SCH ×4 (03:24→15:08)
[2018-10-15 06:00] VITALS: BP 165/66
[2018-10-15 06:13] LABS: BASOPHILS % (AUTO) 0.2 % (0-1); EOSINOPHILS # (AUTO) 0.3 X10'3 (0-0.9); EOSINOPHILS % (AUTO) 3.4 % (0-6); HEMATOCRIT 30.8 % (42.0-52.0); HEMOGLOBIN 9.9 g/dl (14.0-17.9); LYMPHOCYTES # (AUTO) 0.9 X10'3 (1.1-4.8); LYMPHOCYTES % (AUTO) 8.8 % (21-51); MEAN CORPUSCULAR HEMOGLOBIN 27.3 PG (27.0-31.0); MEAN CORPUSCULAR HGB CONC 32.2 % (33.0-36.5); MEAN CORPUSCULAR VOLUME 84.7 FL (78-98); MEAN PLATELET VOLUME 11.8 FL (7.4-10.4); MONOCYTES # (AUTO) 0.5 X10'3 (0-0.9); MONOCYTES % (AUTO) 5.2 % (2-12); NEUTROPHILS # (AUTO) 8.1 X10'3 (1.8-7.7); NEUTROPHILS % (AUTO) 82.4 % (42-75); PLATELET COUNT 242 X10'3 (140-440); RED BLOOD COUNT 3.64 X10'6 (4.70-6.10); RED CELL DISTRIBUTION WIDTH 18.9 % (11.5-14.5); WHITE BLOOD COUNT 9.8 X10'3 (4.5-11.0)
[2018-10-15 06:19] LABS: ALANINE AMINOTRANSFERASE 36 U/L (12-78); ALBUMIN 2.1 G/DL (3.4-5.0); ALBUMIN/GLOBULIN RATIO 0.5 (1.1-1.5); ALKALINE PHOSPHATASE 88 IU/L (46-116); ANION GAP 12 (8-16); ASPARTATE AMINO TRANSFERASE 27 U/L (10-37); BILIRUBIN,TOTAL 0.4 MG/DL (0.1-1.0); BLOOD UREA NITROGEN 55 MG/DL (7-18); BUN/CREATININE RATIO 14.7 (5.4-32.0); CALCIUM 8.2 MG/DL (8.5-10.1); CHLORIDE 99 MMOL/L (99-107); CREATININE 3.73 MG/DL (0.60-1.10); GLUCOSE 67 MG/DL (70-104); MAGNESIUM 1.9 MG/DL (1.5-2.4); PHOSPHORUS 4.1 MG/DL (2.3-4.5); POTASSIUM 4.3 MMOL/L (3.5-5.1); SODIUM 137 MMOL/L (135-145); TOTAL CARBON DIOXIDE 26.1 MMOL/L (24-32); TOTAL PROTEIN 6.3 G/DL (6.4-8.2); VANCOMYCIN,RANDOM 20.3 UG/ML; eGFR 16 ML/MIN
--- NOTE | 2018-10-15 06:34 | NUR ---
Patient in room PCU 3020. I have received report from KAREN AUSTIN and had the opportunity to ask questions and assume patient care.
--- NOTE | 2018-10-15 06:36 | NUR ---
Pt shift report given to NORMAN Manrique. pt stable at change of shift.
--- NOTE | 2018-10-15 06:42 | NUR ---
Called Miki Jiménez CHEMIST PHYSICAL in regards to pt experiencing 5 beat run of V-Tach, Assistant Professor Of Chemistry aware, no new orders at this time. Oncoming nurse Hilaria AUSTIN made aware.
--- NOTE | 2018-10-15 07:49 | NUR ---
Placed condom catheter on patient r/t incontinence and reddnened groin and buttocks, tolerated well with application.
[2018-10-15] MEDS: amLODIPine 5mg tablet PO SCH (08:11)
[2018-10-15] MEDS: citalopram 20mg tablet PO SCH (08:11)
[2018-10-15] MEDS: losartan 25mg tablet PO SCH (08:11)
[2018-10-15] MEDS: docusate sod 100mg capsule PO SCH ×2 (08:11→20:05)
[2018-10-15] MEDS: aspirin 81mg tablet.DR PO SCH (08:11)
[2018-10-15] MEDS: furosemide 40mg tablet PO SCH ×2 (08:11→20:05)
[2018-10-15] MEDS: multivitamins, therapeutics tablet PO SCH (08:11)
[2018-10-15] MEDS: lactobacillus rhamnosus 10,000 MMU CELLS/CAPSULE PO SCH ×2 (08:11→20:05)
--- NOTE | 2018-10-15 08:34 | NUR ---
Held am insulin per nursing judgement, previous nurse states patient is sensitive to small dose of insulin.
[2018-10-15 11:00] VITALS: BP 125/61
--- NOTE | 2018-10-15 14:00 | NUR ---
Held lunch insulin, will clarify that accuchecks are to remain discontinued.
[2018-10-15 15:00] VITALS: BP 125/56
[2018-10-15] MEDS ORDERED: ipratropium/albuterol 3ml nebule IH PRN (15:15)
--- NOTE | 2018-10-15 17:47 | NUR ---
Did not check blood glucose, noted blood glucose assessment was discontinued. Stopped checking blood sugars.
--- NOTE | 2018-10-15 18:18 | NUR ---
Problems reprioritized. Patient report given, questions answered & plan of care reviewed with Deep RN.
[2018-10-15 19:00] VITALS: BP 129/54
[2018-10-15] MEDS: atorvastatin 20mg tablet PO SCH (20:05)
[2018-10-15] MEDS: diphenhydrAMINE 25mg capsule PO SCH (20:05)
[2018-10-15 23:00] VITALS: BP 129/54
[2018-10-15] MEDS: insulin glargine (Lantus) pen - multi-dose SQ SCH (23:16)
[2018-10-16] VITALS (7 sets, daily range): BP systolic 137–157; BP diastolic 61–71
[2018-10-16] MEDS: VANCOMYCIN LEVEL IV SCH ×2 (03:00→21:52)
--- NOTE | 2018-10-16 06:15 | NUR ---
Patient in room PCU 3020. I have received report from KAREN AUSTIN and had the opportunity to ask questions and assume patient care.
--- NOTE | 2018-10-16 06:54 | NUR ---
Problems reprioritized. Patient report given, questions answered & plan of care reviewed with NORMAN Evans.
[2018-10-16 07:15] LABS: BASOPHILS % (AUTO) 0.5 % (0-1); EOSINOPHILS # (AUTO) 0.2 X10'3 (0-0.9); EOSINOPHILS % (AUTO) 2.6 % (0-6); HEMATOCRIT 31.9 % (42.0-52.0); HEMOGLOBIN 10.5 g/dl (14.0-17.9); LYMPHOCYTES # (AUTO) 0.8 X10'3 (1.1-4.8); LYMPHOCYTES % (AUTO) 8.6 % (21-51); MEAN CORPUSCULAR HEMOGLOBIN 27.5 PG (27.0-31.0); MEAN CORPUSCULAR HGB CONC 32.8 % (33.0-36.5); MEAN PLATELET VOLUME 12.2 FL (7.4-10.4); MONOCYTES # (AUTO) 0.5 X10'3 (0-0.9); MONOCYTES % (AUTO) 6.1 % (2-12); NEUTROPHILS # (AUTO) 7.3 X10'3 (1.8-7.7); NEUTROPHILS % (AUTO) 82.2 % (42-75); PLATELET COUNT 263 X10'3 (140-440); RED CELL DISTRIBUTION WIDTH 18.6 % (11.5-14.5); WHITE BLOOD COUNT 8.9 X10'3 (4.5-11.0)
[2018-10-16] MEDS: dextrose ORAL solution 15 GM/59 ML bottle PO PRN (07:28)
[2018-10-16 07:29] LABS: ALANINE AMINOTRANSFERASE 37 U/L (12-78); ALBUMIN 2.1 G/DL (3.4-5.0); ALBUMIN/GLOBULIN RATIO 0.5 (1.1-1.5); ALKALINE PHOSPHATASE 87 IU/L (46-116); ANION GAP 11 (8-16); ASPARTATE AMINO TRANSFERASE 24 U/L (10-37); BILIRUBIN,TOTAL 0.4 MG/DL (0.1-1.0); BLOOD UREA NITROGEN 57 MG/DL (7-18); CALCIUM 8.2 MG/DL (8.5-10.1); CHLORIDE 100 MMOL/L (99-107); CREATININE 3.81 MG/DL (0.60-1.10); GLUCOSE 71 MG/DL (70-104); MAGNESIUM 1.9 MG/DL (1.5-2.4); PHOSPHORUS 4.2 MG/DL (2.3-4.5); POTASSIUM 3.8 MMOL/L (3.5-5.1); SODIUM 137 MMOL/L (135-145); TOTAL CARBON DIOXIDE 26.3 MMOL/L (24-32); TOTAL PROTEIN 6.3 G/DL (6.4-8.2); VANCOMYCIN,RANDOM 17.6 UG/ML; eGFR 16 ML/MIN
[2018-10-16] MEDS: docusate sod 100mg capsule PO SCH ×2 (08:15→21:51)
[2018-10-16] MEDS: citalopram 20mg tablet PO SCH (08:15)
[2018-10-16] MEDS: amLODIPine 5mg tablet PO SCH (08:16)
[2018-10-16] MEDS: multivitamins, therapeutics tablet PO SCH (08:16)
[2018-10-16] MEDS: lactobacillus rhamnosus 10,000 MMU CELLS/CAPSULE PO SCH ×2 (08:16→21:51)
[2018-10-16] MEDS: furosemide 40mg tablet PO SCH ×2 (08:16→21:51)
[2018-10-16] MEDS: losartan 25mg tablet PO SCH (08:16)
[2018-10-16] MEDS: aspirin 81mg tablet.DR PO SCH (08:16)
[2018-10-16 10:41] LABS: ANISOCYTOSIS 2+; ELLIPTOCYTES 1+; LARGE PLATELETS FEW; PLATELET ESTIMATE NORMAL
[2018-10-16 10:42] LABS: ACANTHOCYTES 1+
--- NOTE | 2018-10-16 11:18 | NUR ---
Initial: Pt admitted with bacteremia with hx HD dependent CKD. Pt gram positive cocci on repeat blood culture drawn 10/14 and currently not receiving HD per MD progress notes. Pt with hx T2DM with A1c 7.2. Pt A/O x 2 per physical assessment, DM ed not appropriate at this time. Pt currently on pureed renal diet with honey thick liquids, documented PO intake 100% throughout LOS meeting nutrient needs. No documented BM however pt receiving routine Colace. No edema or wounds. Will continue to follow. Recommendations: 1) Continue with pureed renal diet with honey thick liquids 2) Monitor need for additional bowel care 3) Wt per rx Addendum: 10/16/18 at [address] Amended: Links added.
--- NOTE | 2018-10-16 14:25 | NUR ---
PT HAD A RUN OF SVT, HR 172, CHECKED PT. HR 82 BP 139/61 95%RA, NO COMPLAINTS. JESIKA OSWALD NOTIFIED, NO NEW ORDERS, WILL CONTINUE TO MONITOR.
--- NOTE | 2018-10-16 18:05 | NUR ---
Problems reprioritized. Patient report given, questions answered & plan of care reviewed with DEEP RN.
[2018-10-16] MEDS: diphenhydrAMINE 25mg capsule PO SCH (21:51)
[2018-10-16] MEDS: atorvastatin 20mg tablet PO SCH (21:51)
[2018-10-16] MEDS: insulin glargine (Lantus) pen - multi-dose SQ SCH (23:38)
[2018-10-17 03:00] VITALS: BP 152/61
[2018-10-17 06:02] LABS: BASOPHILS # (AUTO) 0.1 X10'3 (0-0.2); BASOPHILS % (AUTO) 0.9 % (0-1); EOSINOPHILS # (AUTO) 0.3 X10'3 (0-0.9); EOSINOPHILS % (AUTO) 2.3 % (0-6); HEMATOCRIT 32.1 % (42.0-52.0); HEMOGLOBIN 10.5 g/dl (14.0-17.9); LYMPHOCYTES % (AUTO) 7.5 % (21-51); MEAN CORPUSCULAR HEMOGLOBIN 27.1 PG (27.0-31.0); MEAN CORPUSCULAR HGB CONC 32.6 % (33.0-36.5); MEAN CORPUSCULAR VOLUME 83.3 FL (78-98); MEAN PLATELET VOLUME 11.8 FL (7.4-10.4); MONOCYTES # (AUTO) 0.4 X10'3 (0-0.9); MONOCYTES % (AUTO) 2.7 % (2-12); NEUTROPHILS # (AUTO) 11.9 X10'3 (1.8-7.7); NEUTROPHILS % (AUTO) 86.6 % (42-75); PLATELET COUNT 285 X10'3 (140-440); RED BLOOD COUNT 3.85 X10'6 (4.70-6.10); RED CELL DISTRIBUTION WIDTH 18.3 % (11.5-14.5); WHITE BLOOD COUNT 13.7 X10'3 (4.5-11.0)
[2018-10-17 06:20] LABS: ALANINE AMINOTRANSFERASE 32 U/L (12-78); ALBUMIN 2.1 G/DL (3.4-5.0); ALBUMIN/GLOBULIN RATIO 0.5 (1.1-1.5); ALKALINE PHOSPHATASE 93 IU/L (46-116); ANION GAP 12 (8-16); ASPARTATE AMINO TRANSFERASE 20 U/L (10-37); BILIRUBIN,TOTAL 0.4 MG/DL (0.1-1.0); BLOOD UREA NITROGEN 61 MG/DL (7-18); CALCIUM 8.3 MG/DL (8.5-10.1); CHLORIDE 98 MMOL/L (99-107); CREATININE 3.81 MG/DL (0.60-1.10); GLUCOSE 87 MG/DL (70-104); MAGNESIUM 1.9 MG/DL (1.5-2.4); PHOSPHORUS 3.7 MG/DL (2.3-4.5); SODIUM 136 MMOL/L (135-145); TOTAL CARBON DIOXIDE 26.2 MMOL/L (24-32); TOTAL PROTEIN 6.6 G/DL (6.4-8.2); VANCOMYCIN,RANDOM 15.8 UG/ML; eGFR 16 ML/MIN
--- NOTE | 2018-10-17 06:30 | NUR ---
Patient in room PCU 3020. I have received report from NORMAN Bacon and had the opportunity to ask questions and assume patient care.
--- NOTE | 2018-10-17 06:39 | NUR ---
Problems reprioritized. Patient report given, questions answered & plan of care reviewed with Sarah AUSTIN.
[2018-10-17 07:00] VITALS: BP 151/58
[2018-10-17] MEDS: amLODIPine 5mg tablet PO SCH (07:31)
[2018-10-17] MEDS: furosemide 40mg tablet PO SCH ×2 (07:31→20:57)
[2018-10-17] MEDS: aspirin 81mg tablet.DR PO SCH (07:31)
[2018-10-17] MEDS: losartan 25mg tablet PO SCH (07:31)
[2018-10-17] MEDS: lactobacillus rhamnosus 10,000 MMU CELLS/CAPSULE PO SCH ×2 (07:31→20:57)
[2018-10-17] MEDS: docusate sod 100mg capsule PO SCH ×2 (07:31→20:57)
[2018-10-17] MEDS: multivitamins, therapeutics tablet PO SCH (07:31)
[2018-10-17] MEDS: citalopram 20mg tablet PO SCH (07:31)
[2018-10-17 07:42] LABS: LARGE PLATELETS FEW; PLATELET ESTIMATE NORMAL
[2018-10-17 11:00] VITALS: BP 148/73
[2018-10-17] MEDS: insulin Lispro (HumaLOG) vial - multi-dose SQ SCH (13:17)
[2018-10-17 15:00] VITALS: BP 148/63
--- NOTE | 2018-10-17 18:15 | NUR ---
Patient in room PCU 3020. I have received report from Sarah AUSTIN and had the opportunity to ask questions and assume patient care.
--- NOTE | 2018-10-17 18:33 | NUR ---
Problems reprioritized. Patient report given, questions answered & plan of care reviewed with NORMAN Macedo.
[2018-10-17 19:00] VITALS: BP 155/67
--- NOTE | 2018-10-17 20:00 | NUR ---
Pt coccyx is red and non blanchable. Foam dressing applied. PT bed switched to air mattress that was available on unit. Wound consult ordered. Will continue to monitor.
[2018-10-17] MEDS: atorvastatin 20mg tablet PO SCH (20:57)
[2018-10-17] MEDS: diphenhydrAMINE 25mg capsule PO SCH (20:57)
[2018-10-17] MEDS: insulin glargine (Lantus) pen - multi-dose SQ SCH (21:05)
[2018-10-17 23:00] VITALS: BP 145/84
[2018-10-18 03:00] VITALS: BP 150/61
[2018-10-18] MEDS: VANCOMYCIN LEVEL IV SCH (03:00)
--- NOTE | 2018-10-18 06:30 | NUR ---
Problems reprioritized. Patient report given, questions answered & plan of care reviewed with Magda AUSTIN.
--- NOTE | 2018-10-18 06:37 | NUR ---
Received report from Hellen AUSTIN
[2018-10-18 07:08] VITALS: BP 155/65
[2018-10-18] MEDS ORDERED: vancomycin/NS 1 GM ADD-VANTAGE 250 ML IV ONE (07:50)
[2018-10-18] MEDS: citalopram 20mg tablet PO SCH (08:14)
[2018-10-18] MEDS: amLODIPine 5mg tablet PO SCH (08:14)
[2018-10-18] MEDS: lactobacillus rhamnosus 10,000 MMU CELLS/CAPSULE PO SCH ×2 (08:14→20:44)
[2018-10-18] MEDS: multivitamins, therapeutics tablet PO SCH (08:14)
[2018-10-18] MEDS: losartan 25mg tablet PO SCH (08:14)
[2018-10-18] MEDS: docusate sod 100mg capsule PO SCH ×2 (08:14→20:43)
[2018-10-18] MEDS: aspirin 81mg tablet.DR PO SCH (08:14)
[2018-10-18] MEDS: furosemide 40mg tablet PO SCH ×2 (08:15→20:44)
[2018-10-18 11:00] VITALS: BP 126/51
[2018-10-18 14:12] LABS: ALANINE AMINOTRANSFERASE 24 U/L (12-78); ALBUMIN 2.1 G/DL (3.4-5.0); ALBUMIN/GLOBULIN RATIO 0.5 (1.1-1.5); ALKALINE PHOSPHATASE 99 IU/L (46-116); ANION GAP 10 (8-16); ASPARTATE AMINO TRANSFERASE 17 U/L (10-37); BILIRUBIN,TOTAL 0.4 MG/DL (0.1-1.0); BLOOD UREA NITROGEN 66 MG/DL (7-18); BUN/CREATININE RATIO 16.2 (5.4-32.0); CALCIUM 8.2 MG/DL (8.5-10.1); CHLORIDE 97 MMOL/L (99-107); CREATININE 4.08 MG/DL (0.60-1.10); GLUCOSE 201 MG/DL (70-104); MAGNESIUM 2.1 MG/DL (1.5-2.4); POTASSIUM 3.9 MMOL/L (3.5-5.1); SODIUM 134 MMOL/L (135-145); TOTAL CARBON DIOXIDE 26.9 MMOL/L (24-32); TOTAL PROTEIN 6.5 G/DL (6.4-8.2); eGFR 15 ML/MIN
[2018-10-18 14:13] LABS: BASOPHILS # (AUTO) 0.3 X10'3 (0-0.2); BASOPHILS % (AUTO) 2.1 % (0-1); EOSINOPHILS # (AUTO) 0.3 X10'3 (0-0.9); EOSINOPHILS % (AUTO) 1.8 % (0-6); HEMATOCRIT 33.3 % (42.0-52.0); HEMOGLOBIN 10.7 g/dl (14.0-17.9); LYMPHOCYTES # (AUTO) 0.8 X10'3 (1.1-4.8); LYMPHOCYTES % (AUTO) 4.9 % (21-51); MEAN CORPUSCULAR HEMOGLOBIN 26.8 PG (27.0-31.0); MEAN CORPUSCULAR HGB CONC 32.1 % (33.0-36.5); MEAN CORPUSCULAR VOLUME 83.7 FL (78-98); MEAN PLATELET VOLUME 11.6 FL (7.4-10.4); MONOCYTES # (AUTO) 0.4 X10'3 (0-0.9); MONOCYTES % (AUTO) 2.4 % (2-12); NEUTROPHILS # (AUTO) 15.1 X10'3 (1.8-7.7); NEUTROPHILS % (AUTO) 88.8 % (42-75); PLATELET COUNT 277 X10'3 (140-440); RED BLOOD COUNT 3.98 X10'6 (4.70-6.10); RED CELL DISTRIBUTION WIDTH 18.4 % (11.5-14.5)
[2018-10-18 14:22] LABS: LARGE PLATELETS FEW; PLATELET ESTIMATE NORMAL
[2018-10-18 15:00] VITALS: BP 124/59
[2018-10-18 18:00] VITALS: BP 140/63
--- NOTE | 2018-10-18 18:44 | NUR ---
report given top kiley rn
[2018-10-18] MEDS: diphenhydrAMINE 25mg capsule PO SCH (20:43)
[2018-10-18] MEDS: atorvastatin 20mg tablet PO SCH (20:43)
[2018-10-18] MEDS: insulin glargine (Lantus) pen - multi-dose SQ SCH (21:33)
[2018-10-18 22:00] VITALS: BP 152/70
[2018-10-19] MEDS: VANCOMYCIN LEVEL IV SCH (03:00)
[2018-10-19 03:06] VITALS: BP 164/70
--- NOTE | 2018-10-19 03:07 | NUR ---
Replaced hydrophilic to coccyx.
--- NOTE | 2018-10-19 03:50 | NUR ---
INITIATED NEW IV TO RIGHT WRIST, DC'D IV TO RIGHT AC; OUTDATED.
[2018-10-19 04:04] LABS: BASOPHILS # (AUTO) 0.2 X10'3 (0-0.2); BASOPHILS % (AUTO) 0.8 % (0-1); EOSINOPHILS # (AUTO) 0.3 X10'3 (0-0.9); EOSINOPHILS % (AUTO) 1.5 % (0-6); HEMOGLOBIN 9.5 g/dl (14.0-17.9); LYMPHOCYTES # (AUTO) 1.1 X10'3 (1.1-4.8); MEAN CORPUSCULAR HEMOGLOBIN 27.5 PG (27.0-31.0); MEAN CORPUSCULAR HGB CONC 32.8 % (33.0-36.5); MEAN CORPUSCULAR VOLUME 83.7 FL (78-98); MEAN PLATELET VOLUME 11.6 FL (7.4-10.4); MONOCYTES # (AUTO) 0.6 X10'3 (0-0.9); MONOCYTES % (AUTO) 2.8 % (2-12); NEUTROPHILS # (AUTO) 19.2 X10'3 (1.8-7.7); NEUTROPHILS % (AUTO) 89.9 % (42-75); PLATELET COUNT 321 X10'3 (140-440); RED BLOOD COUNT 3.46 X10'6 (4.70-6.10); RED CELL DISTRIBUTION WIDTH 18.7 % (11.5-14.5); WHITE BLOOD COUNT 21.4 X10'3 (4.5-11.0)
[2018-10-19 04:20] LABS: ALBUMIN 2.2 G/DL (3.4-5.0); ANION GAP 12 (8-16); BLOOD UREA NITROGEN 64 MG/DL (7-18); BUN/CREATININE RATIO 16.1 (5.4-32.0); CALCIUM 8.5 MG/DL (8.5-10.1); CHLORIDE 97 MMOL/L (99-107); CREATININE 3.98 MG/DL (0.60-1.10); GLUCOSE 130 MG/DL (70-104); PHOSPHORUS 4.1 MG/DL (2.3-4.5); POTASSIUM 3.9 MMOL/L (3.5-5.1); SODIUM 136 MMOL/L (135-145); VANCOMYCIN,RANDOM 21.1 UG/ML; eGFR 15 ML/MIN
[2018-10-19 04:57] LABS: ANISOCYTOSIS 1+; ELLIPTOCYTES 1+; PLATELET ESTIMATE NORMAL; TOTAL CELLS COUNTED 100
[2018-10-19 04:58] LABS: LARGE PLATELETS FEW; TOXIC GRANULATION 1+
[2018-10-19 06:00] VITALS: BP 155/92
--- NOTE | 2018-10-19 06:41 | NUR ---
Problems reprioritized. Patient report given, questions answered & plan of care reviewed with NORMAN Browning.
--- NOTE | 2018-10-19 06:46 | NUR ---
Patient in room PCU 3020. I have received report from Debbie AUSTIN and had the opportunity to ask questions and assume patient care.
[2018-10-19] MEDS: aspirin 81mg tablet.DR PO SCH (09:18)
[2018-10-19] MEDS: lactobacillus rhamnosus 10,000 MMU CELLS/CAPSULE PO SCH ×2 (09:19→22:17)
[2018-10-19] MEDS: multivitamins, therapeutics tablet PO SCH (09:19)
[2018-10-19] MEDS: docusate sod 100mg capsule PO SCH ×2 (09:19→22:17)
[2018-10-19] MEDS: losartan 25mg tablet PO SCH (09:19)
[2018-10-19] MEDS: amLODIPine 5mg tablet PO SCH (09:19)
[2018-10-19] MEDS: citalopram 20mg tablet PO SCH (09:19)
[2018-10-19] MEDS: furosemide 40mg tablet PO SCH ×2 (09:19→22:17)
[2018-10-19] MEDS: insulin Lispro (HumaLOG) vial - multi-dose SQ SCH ×2 (09:22→13:39)
[2018-10-19 11:00] VITALS: BP 150/98
[2018-10-19 15:00] VITALS: BP 138/87
[2018-10-19 18:00] VITALS: BP 137/61
--- NOTE | 2018-10-19 18:30 | NUR ---
Patient in room PCU 3020. I have received report from Carrie AUSTIN and had the opportunity to ask questions and assume patient care.
--- NOTE | 2018-10-19 18:34 | NUR ---
Problems reprioritized. Patient report given, questions answered & plan of care reviewed with Rianna AUSTIN.
[2018-10-19 20:00] VITALS: BP 144/57
--- NOTE | 2018-10-19 21:19 | NUR ---
Miki Jiménez notified of patient's Positive blood cultures to Right Forearm 27hrs Gram Positive cocci in clusters in the aerobic bottles. No new orders awaiting for C/S. Patient is currently on Vanco only, pharmacy to dose due to patients kidney functions.
[2018-10-19] MEDS: insulin glargine (Lantus) pen - multi-dose SQ SCH (21:50)
[2018-10-19] MEDS: atorvastatin 20mg tablet PO SCH (22:16)
[2018-10-19] MEDS: diphenhydrAMINE 25mg capsule PO SCH (22:17)
--- NOTE | 2018-10-19 22:37 | NUR ---
Another call from Lab for positive blood cultures second site of the right arm. Gram positive cocci in clusters in the aerobic bottle. No new orders from BRETT Jiménez.
--- NOTE | 2018-10-20 02:51 | NUR ---
Patient in room PCU 3020. I have received report from NORMAN Blanca and had the opportunity to ask questions and assume patient care.
[2018-10-20] MEDS: VANCOMYCIN LEVEL IV SCH (03:00)
--- NOTE | 2018-10-20 03:00 | NUR ---
Lab called again 37hrs Gram positive cocci in clusters in the aerobic bottle. Same results. BRETT Jiménez is aware.
--- NOTE | 2018-10-20 03:10 | NUR ---
Report given to Monroe AUSTIN.
--- NOTE | 2018-10-20 03:32 | NUR ---
Patient transfer to Surgical room 352 from Tele room 3020. All belongings sent with patient.
[2018-10-20 03:34] VITALS: BP 128/52
--- NOTE | 2018-10-20 03:45 | NUR ---
I agree with Timothy Blanca's physical assessment.
[2018-10-20 06:08] LABS: BASOPHILS # (AUTO) 0.2 X10'3 (0-0.2); BASOPHILS % (AUTO) 1.1 % (0-1); EOSINOPHILS # (AUTO) 0.2 X10'3 (0-0.9); EOSINOPHILS % (AUTO) 1.6 % (0-6); HEMATOCRIT 32.5 % (42.0-52.0); HEMOGLOBIN 10.7 g/dl (14.0-17.9); LYMPHOCYTES # (AUTO) 0.7 X10'3 (1.1-4.8); LYMPHOCYTES % (AUTO) 4.6 % (21-51); MEAN CORPUSCULAR HEMOGLOBIN 27.4 PG (27.0-31.0); MEAN CORPUSCULAR HGB CONC 32.9 % (33.0-36.5); MEAN CORPUSCULAR VOLUME 83.3 FL (78-98); MEAN PLATELET VOLUME 12.4 FL (7.4-10.4); MONOCYTES # (AUTO) 0.5 X10'3 (0-0.9); MONOCYTES % (AUTO) 3.1 % (2-12); NEUTROPHILS # (AUTO) 13.1 X10'3 (1.8-7.7); NEUTROPHILS % (AUTO) 89.6 % (42-75); PLATELET COUNT 278 X10'3 (140-440); WHITE BLOOD COUNT 14.6 X10'3 (4.5-11.0)
[2018-10-20 06:12] LABS: ALBUMIN 1.9 G/DL (3.4-5.0); ANION GAP 11 (8-16); BLOOD UREA NITROGEN 74 MG/DL (7-18); BUN/CREATININE RATIO 16.6 (5.4-32.0); CALCIUM 7.9 MG/DL (8.5-10.1); CHLORIDE 95 MMOL/L (99-107); CREATININE 4.45 MG/DL (0.60-1.10); GLUCOSE 128 MG/DL (70-104); PHOSPHORUS 4.7 MG/DL (2.3-4.5); POTASSIUM 3.9 MMOL/L (3.5-5.1); SODIUM 133 MMOL/L (135-145); TOTAL CARBON DIOXIDE 26.8 MMOL/L (24-32); VANCOMYCIN,RANDOM 18.6 UG/ML; eGFR 13 ML/MIN
--- NOTE | 2018-10-20 06:18 | NUR ---
Problems reprioritized. Patient report given, questions answered & plan of care reviewed with NORMAN Castro.
--- NOTE | 2018-10-20 06:19 | NUR ---
Patient in room [facility] 352. I have received report from Monroe AUSTIN and had the opportunity to ask questions and assume patient care.
[2018-10-20 07:00] VITALS: BP 134/63
[2018-10-20] MEDS: multivitamins, therapeutics tablet PO SCH (07:30)
[2018-10-20] MEDS: furosemide 40mg tablet PO SCH ×2 (07:30→21:49)
[2018-10-20] MEDS: citalopram 20mg tablet PO SCH (07:30)
[2018-10-20] MEDS: lactobacillus rhamnosus 10,000 MMU CELLS/CAPSULE PO SCH ×2 (07:31→21:46)
[2018-10-20] MEDS: docusate sod 100mg capsule PO SCH ×2 (07:31→21:45)
[2018-10-20] MEDS: aspirin 81mg tablet.DR PO SCH (07:31)
[2018-10-20] MEDS: amLODIPine 5mg tablet PO SCH (07:31)
[2018-10-20] MEDS: HYDROcodone/acetaminophen 10/325mg tab PO PRN (07:31)
[2018-10-20] MEDS: losartan 25mg tablet PO SCH (07:31)
--- NOTE | 2018-10-20 10:09 | NUR ---
Reassessment: Renal function stable, pt with no dialysis since admit per MD progress notes. Pt with sepsis d/t MRSA with the source likely being HD cath, now removed per MD progress notes. Pt confused and A/O x 1 per physical assessment, DM and protein education not appropriate at this time. Documented PO intake 75-100% meeting nutrient needs. LBM 10/19. Will continue to follow. Recommendations: 1) Continue with pureed renal diet with honey thick liquids 2) Monitor need for additional bowel care 3) Wt per rx Addendum: 10/20/18 at [address] Amended: Links added.
[2018-10-20] MEDS: insulin Lispro (HumaLOG) vial - multi-dose SQ SCH (10:15)
[2018-10-20 12:00] VITALS: BP 91/48
--- NOTE | 2018-10-20 17:01 | NUR ---
Spoke to patient about needing to have temporary dialysis catheter placement. Patient nod his head when I asked him if he understood me about the dialysis catheter placement and the need for hemodialysis the next day. Patient is alert, oriented, will talk to me sometimes and sometimes will not speak. I also attempted to contact the son but unable to reach him so I called patient's sister to discuss the need for hemodialysis catheter placement and hemodialysis treatment. Addendum: 10/20/18 at 1705 by Matthew Sanchez RN Kelly Orta is the sister
--- NOTE | 2018-10-20 18:22 | NUR ---
Problems reprioritized. Patient report given, questions answered & plan of care reviewed with Shanelle AUSTIN
--- NOTE | 2018-10-20 18:30 | NUR ---
Patient in room [facility] 352. I have received report from Matthew AUSTIN and had the opportunity to ask questions and assume patient care.
[2018-10-20 19:00] VITALS: BP 115/72
[2018-10-20] MEDS: diphenhydrAMINE 25mg capsule PO SCH (21:46)
[2018-10-20] MEDS: insulin glargine (Lantus) pen - multi-dose SQ SCH (22:02)
[2018-10-20] MEDS: atorvastatin 20mg tablet PO SCH (22:04)
[2018-10-21] VITALS (9 sets, daily range): BP systolic 107–134; BP diastolic 52–71
[2018-10-21] MEDS: VANCOMYCIN LEVEL IV SCH (03:00)
[2018-10-21 05:20] LABS: BASOPHILS % (AUTO) 0.2 % (0-1); EOSINOPHILS # (AUTO) 0.2 X10'3 (0-0.9); EOSINOPHILS % (AUTO) 1.6 % (0-6); HEMATOCRIT 33.8 % (42.0-52.0); LYMPHOCYTES # (AUTO) 0.7 X10'3 (1.1-4.8); LYMPHOCYTES % (AUTO) 4.8 % (21-51); MEAN CORPUSCULAR HEMOGLOBIN 27.1 PG (27.0-31.0); MEAN CORPUSCULAR HGB CONC 32.6 % (33.0-36.5); MEAN CORPUSCULAR VOLUME 83.3 FL (78-98); MEAN PLATELET VOLUME 11.9 FL (7.4-10.4); MONOCYTES # (AUTO) 0.3 X10'3 (0-0.9); NEUTROPHILS # (AUTO) 12.7 X10'3 (1.8-7.7); NEUTROPHILS % (AUTO) 91.4 % (42-75); PLATELET COUNT 284 X10'3 (140-440); RED BLOOD COUNT 4.06 X10'6 (4.70-6.10); RED CELL DISTRIBUTION WIDTH 17.7 % (11.5-14.5); WHITE BLOOD COUNT 13.9 X10'3 (4.5-11.0)
[2018-10-21 05:28] LABS: INR 1.1 INR; PARTIAL THROMBOPLASTIN TIME 29 SECONDS (22-32); PROTHROMBIN TIME 11.2 SECONDS (9.0-12.0)
[2018-10-21 05:36] LABS: ALBUMIN 1.9 G/DL (3.4-5.0); ANION GAP 12 (8-16); BLOOD UREA NITROGEN 87 MG/DL (7-18); BUN/CREATININE RATIO 16.7 (5.4-32.0); CALCIUM 7.9 MG/DL (8.5-10.1); CHLORIDE 94 MMOL/L (99-107); CREATININE 5.21 MG/DL (0.60-1.10); GLUCOSE 157 MG/DL (70-104); MAGNESIUM 2.1 MG/DL (1.5-2.4); PHOSPHORUS 5.7 MG/DL (2.3-4.5); POTASSIUM 4.3 MMOL/L (3.5-5.1); SODIUM 133 MMOL/L (135-145); TOTAL CARBON DIOXIDE 26.9 MMOL/L (24-32); VANCOMYCIN,RANDOM 15.8 UG/ML; eGFR 11 ML/MIN
[2018-10-21] MEDS: ondansetron/PF 4mg/2ml inj IV PRN (06:09)
--- NOTE | 2018-10-21 06:30 | NUR ---
Problems reprioritized. Patient report given, questions answered & plan of care reviewed with Pia AUSTIN.
[2018-10-21] MEDS: docusate sod 100mg capsule PO SCH ×2 (08:00→22:27)
[2018-10-21] MEDS: losartan 25mg tablet PO SCH (08:00)
[2018-10-21] MEDS ORDERED: epoetin 20,000 units/ml inj IV ONE (08:00)
[2018-10-21] MEDS: furosemide 40mg tablet PO SCH ×2 (08:00→22:28)
[2018-10-21] MEDS: multivitamins, therapeutics tablet PO SCH (08:00)
[2018-10-21] MEDS: amLODIPine 5mg tablet PO SCH (08:00)
[2018-10-21] MEDS ORDERED: heparin 1,000 units/ml 10ml inj HE ONE ×2 (08:00)
[2018-10-21] MEDS ORDERED: heparin 1,000 units/ml 10ml inj IV ONE (08:00)
[2018-10-21] MEDS: aspirin 81mg tablet.DR PO SCH (08:00)
[2018-10-21] MEDS: lactobacillus rhamnosus 10,000 MMU CELLS/CAPSULE PO SCH ×2 (08:00→22:26)
[2018-10-21] MEDS ORDERED: albumin (Human) 5% 250ml 250 ML IV PRN (08:00)
[2018-10-21] MEDS ORDERED: heparin 1,000unit/ml 10ml vial 10 ML IV ONE (08:00)
[2018-10-21] MEDS: citalopram 20mg tablet PO SCH (08:00)
[2018-10-21] MEDS ORDERED: MIDAZolam 5mg/ml 2ml vial IV ONE ×2 (09:50→09:55)
[2018-10-21] MEDS ORDERED: morphine 10mg/ml inj. IV ONE ×2 (09:50→09:55)
[2018-10-21] MEDS ORDERED: fentaNYL/PF 50MCG/1 ML 2ML syringe IV PRN (10:05)
[2018-10-21] MEDS ORDERED: heparin 1,000 units/ml 10ml inj ICATH ONE (10:05)
[2018-10-21] MEDS ORDERED: LIDOcaine 1%/PF 5ML 10 MG/ML VIAL SQ ONE (10:05)
--- NOTE | 2018-10-21 11:03 | NUR ---
Versed 10 mg and Morphine 10 mg were wasted s/p LEATHA procedure by procedure nurse, Tracie Moeller RN, and witnessed by myself, Dalia Siddiqui RN.
[2018-10-21 11:18] LABS: ANISOCYTOSIS 2+; ELLIPTOCYTES 1+; LARGE PLATELETS FEW; PLATELET ESTIMATE NORMAL; SCHISTOCYTES FEW
[2018-10-21] MEDS ORDERED: LIDOcaine 1%/PF 5ML 10 MG/ML VIAL ONE (11:35)
[2018-10-21] MEDS ORDERED: heparin 1,000unit/ml 10ml vial 10 ML ONE (11:57)
--- NOTE | 2018-10-21 18:30 | NUR ---
Patient in room [facility] 352. I have received report from Pia AUSTIN and had the opportunity to ask questions and assume patient care. Patient is receiving dialysis, will continue to monitor
[2018-10-21] MEDS: insulin glargine (Lantus) pen - multi-dose SQ SCH (22:24)
[2018-10-21] MEDS: linezolid 600mg tablet PO SCH (22:26)
[2018-10-21] MEDS: diphenhydrAMINE 25mg capsule PO SCH (22:27)
[2018-10-21] MEDS: atorvastatin 20mg tablet PO SCH (22:28)
[2018-10-22] VITALS: BP 127/52
[2018-10-22] MEDS: VANCOMYCIN LEVEL IV SCH (03:00)
[2018-10-22] MEDS: ondansetron/PF 4mg/2ml inj IV PRN ×2 (05:11→23:33)
[2018-10-22 06:09] LABS: BASOPHILS % (AUTO) 0.3 % (0-1); EOSINOPHILS # (AUTO) 0.3 X10'3 (0-0.9); EOSINOPHILS % (AUTO) 2.3 % (0-6); HEMATOCRIT 33.9 % (42.0-52.0); HEMOGLOBIN 11.2 g/dl (14.0-17.9); LYMPHOCYTES # (AUTO) 0.8 X10'3 (1.1-4.8); LYMPHOCYTES % (AUTO) 5.8 % (21-51); MEAN CORPUSCULAR HEMOGLOBIN 27.5 PG (27.0-31.0); MEAN CORPUSCULAR VOLUME 83.3 FL (78-98); MEAN PLATELET VOLUME 12.4 FL (7.4-10.4); MONOCYTES # (AUTO) 0.4 X10'3 (0-0.9); MONOCYTES % (AUTO) 2.6 % (2-12); NEUTROPHILS # (AUTO) 12.4 X10'3 (1.8-7.7); PLATELET COUNT 287 X10'3 (140-440); RED BLOOD COUNT 4.07 X10'6 (4.70-6.10); RED CELL DISTRIBUTION WIDTH 18.2 % (11.5-14.5); WHITE BLOOD COUNT 13.9 X10'3 (4.5-11.0)
[2018-10-22 06:35] LABS: ANION GAP 10 (8-16); BLOOD UREA NITROGEN 51 MG/DL (7-18); BUN/CREATININE RATIO 13.7 (5.4-32.0); CALCIUM 7.9 MG/DL (8.5-10.1); CHLORIDE 98 MMOL/L (99-107); CREATININE 3.71 MG/DL (0.60-1.10); GLUCOSE 118 MG/DL (70-104); MAGNESIUM 1.9 MG/DL (1.5-2.4); PHOSPHORUS 4.3 MG/DL (2.3-4.5); POTASSIUM 4.5 MMOL/L (3.5-5.1); SODIUM 136 MMOL/L (135-145); TOTAL CARBON DIOXIDE 27.8 MMOL/L (24-32); eGFR 16 ML/MIN
--- NOTE | 2018-10-22 06:59 | NUR ---
Patient in room [facility] 352. I have received report from Renay AUSTIN and had the opportunity to ask questions and assume patient care.
[2018-10-22 07:00] VITALS: BP 118/58
--- NOTE | 2018-10-22 07:02 | NUR ---
Problems reprioritized. Patient report given, questions answered & plan of care reviewed with Concepcion AUSTIN. Patient having vitals taken.
[2018-10-22 07:25] LABS: LARGE PLATELETS FEW; PLATELET ESTIMATE NORMAL
[2018-10-22] MEDS ORDERED: vancomycin/NS 1 GM ADD-VANTAGE 250 ML IV ONE (07:25)
[2018-10-22 07:26] LABS: ANISOCYTOSIS 2+; ELLIPTOCYTES 1+; MICROCYTOSIS 1+; POIKILOCYTOSIS 1+; TEAR DROP CELLS FEW
[2018-10-22] MEDS: losartan 25mg tablet PO SCH (08:46)
[2018-10-22] MEDS: docusate sod 100mg capsule PO SCH ×2 (08:46→20:33)
[2018-10-22] MEDS: multivitamins, therapeutics tablet PO SCH (08:46)
[2018-10-22] MEDS: amLODIPine 5mg tablet PO SCH (08:46)
[2018-10-22] MEDS: furosemide 40mg tablet PO SCH ×2 (08:46→20:34)
[2018-10-22] MEDS: citalopram 20mg tablet PO SCH (08:46)
[2018-10-22] MEDS: lactobacillus rhamnosus 10,000 MMU CELLS/CAPSULE PO SCH ×2 (08:46→20:34)
[2018-10-22] MEDS: aspirin 81mg tablet.DR PO SCH (08:46)
[2018-10-22] MEDS: linezolid 600mg tablet PO SCH ×2 (08:52→20:34)
[2018-10-22 11:00] VITALS: BP 118/58
--- NOTE | 2018-10-22 11:42 | NUR ---
Zyvox diet ed: Pt currently receiving Zyvox. Pt documented as A/O x 2, low tyramine nutrition therapy ed not appropriate at this time. Pt continues on pureed diet with honey thick liquid with 75-100% intake. Will continue to follow. Addendum: 10/22/18 at [address] Amended: Links added.
--- NOTE | 2018-10-22 18:34 | NUR ---
patient had BM today, turned q2hrly nd calzime applied to sacral area. Seen by Dr bolton order given for PT eval in am. Report given to Marguerite AUSTIN
--- NOTE | 2018-10-22 18:40 | NUR ---
Patient in room [facility] 352. I have received report from Concepcion AUSTIN and had the opportunity to ask questions and assume patient care. Finishing dinner, will continue to monitor.
[2018-10-22 19:00] VITALS: BP 116/57
[2018-10-22] MEDS: diphenhydrAMINE 25mg capsule PO SCH (20:33)
[2018-10-22] MEDS: atorvastatin 20mg tablet PO SCH (20:34)
[2018-10-22] MEDS: insulin glargine (Lantus) pen - multi-dose SQ SCH (23:26)
[2018-10-23] VITALS: BP 130/60
[2018-10-23] MEDS ORDERED: proCHLORperazine 10 MG/2 ml inj IV ONE (01:25)
[2018-10-23 04:30] VITALS: BP 111/58
--- NOTE | 2018-10-23 05:00 | NUR ---
Patient provided zofran 2333 for nausea, continued to have nausea and began vomiting, Notified September SPACE SCIENCES DIRECTOR who gave order for compazine IV. Patient continued to vomit with increasing projectile vomiting, received order to place NG make patient NPO and have KUB. Will continue to monitor.
[2018-10-23] MEDS: VANCOMYCIN LEVEL IV SCH (06:49)
[2018-10-23 07:10] LABS: BASOPHILS % (AUTO) 0.1 % (0-1); EOSINOPHILS # (AUTO) 0.4 X10'3 (0-0.9); EOSINOPHILS % (AUTO) 2.2 % (0-6); HEMATOCRIT 32.8 % (42.0-52.0); HEMOGLOBIN 10.7 g/dl (14.0-17.9); LYMPHOCYTES # (AUTO) 0.7 X10'3 (1.1-4.8); LYMPHOCYTES % (AUTO) 4.2 % (21-51); MEAN CORPUSCULAR HEMOGLOBIN 27.2 PG (27.0-31.0); MEAN CORPUSCULAR HGB CONC 32.7 % (33.0-36.5); MEAN CORPUSCULAR VOLUME 83.2 FL (78-98); MEAN PLATELET VOLUME 12.6 FL (7.4-10.4); MONOCYTES # (AUTO) 0.4 X10'3 (0-0.9); MONOCYTES % (AUTO) 2.5 % (2-12); NEUTROPHILS # (AUTO) 14.3 X10'3 (1.8-7.7); PLATELET COUNT 280 X10'3 (140-440); RED BLOOD COUNT 3.93 X10'6 (4.70-6.10); RED CELL DISTRIBUTION WIDTH 18.2 % (11.5-14.5); WHITE BLOOD COUNT 15.7 X10'3 (4.5-11.0)
[2018-10-23 07:33] LABS: ALBUMIN 1.9 G/DL (3.4-5.0); ANION GAP 13 (8-16); BLOOD UREA NITROGEN 86 MG/DL (7-18); BUN/CREATININE RATIO 17.7 (5.4-32.0); CALCIUM 7.7 MG/DL (8.5-10.1); CHLORIDE 94 MMOL/L (99-107); CREATININE 4.87 MG/DL (0.60-1.10); GLUCOSE 209 MG/DL (70-104); MAGNESIUM 1.8 MG/DL (1.5-2.4); PHOSPHORUS 5.6 MG/DL (2.3-4.5); POTASSIUM 4.5 MMOL/L (3.5-5.1); SODIUM 136 MMOL/L (135-145); TOTAL CARBON DIOXIDE 28.9 MMOL/L (24-32); VANCOMYCIN,RANDOM 20.8 UG/ML; eGFR 12 ML/MIN
[2018-10-23] MEDS: lactobacillus rhamnosus 10,000 MMU CELLS/CAPSULE PO SCH ×2 (08:00→20:30)
[2018-10-23] MEDS ORDERED: albumin (Human) 5% 250ml 250 ML IV PRN (08:00)
[2018-10-23] MEDS: linezolid 600mg tablet PO SCH ×2 (08:00→20:29)
[2018-10-23] MEDS: furosemide 40mg tablet PO SCH ×2 (08:00→20:30)
[2018-10-23] MEDS: citalopram 20mg tablet PO SCH (08:00)
[2018-10-23] MEDS: docusate sodium 100mg/10ml UD cup PO SCH ×2 (08:00→20:29)
[2018-10-23] MEDS ORDERED: heparin 1,000unit/ml 10ml vial 10 ML IV ONE ×2 (08:00)
[2018-10-23] MEDS: multivitamins, therapeutics tablet PO SCH (08:00)
[2018-10-23] MEDS: aspirin 81mg tablet.DR PO SCH (08:00)
[2018-10-23] MEDS ORDERED: heparin 1,000 units/ml 10ml inj HE ONE ×4 (08:00)
[2018-10-23] MEDS: amLODIPine 5mg tablet PO SCH (08:00)
[2018-10-23] MEDS ORDERED: normal saline 1000ml 250 ML IV PRN (08:00)
[2018-10-23] MEDS: losartan 25mg tablet PO SCH (08:00)
--- NOTE | 2018-10-23 09:00 | NUR ---
PT PULLED NG TUBE OUT. NG TUBE WAS REPLACED, PT TOLERATED WELL.
[2018-10-23] MEDS: insulin Lispro (HumaLOG) vial - multi-dose SQ SCH (09:33)
[2018-10-23 10:21] LABS: LARGE PLATELETS FEW; PLATELET ESTIMATE NORMAL
[2018-10-23 10:22] LABS: ACANTHOCYTES 1+; ANISOCYTOSIS 2+; ELLIPTOCYTES 1+
[2018-10-23 10:23] LABS: HYPOCHROMASIA 1+
[2018-10-23 11:00] VITALS: BP 100/35
[2018-10-23] MEDS ORDERED: glycerin ADULT rectal suppository RC PRN (11:10)
[2018-10-23] MEDS ORDERED: lactulose 20gm/30ml cup PO PRN (11:10)
[2018-10-23 11:11] LABS: HBSAG SCREEN Negative (Negative)
[2018-10-23] MEDS ORDERED: bisacodyl 10mg suppository rectal RC ONE (16:45)
--- NOTE | 2018-10-23 18:10 | NUR ---
Problems reprioritized. Patient report given, questions answered & plan of care reviewed with AMBAR AUSTIN.
[2018-10-23 19:00] VITALS: BP_SYST 130; BP_SYST 150; BP_DIAS 68; BP_DIAS 80
[2018-10-23] MEDS: diphenhydrAMINE 25mg capsule PO SCH (20:30)
[2018-10-23] MEDS: atorvastatin 20mg tablet PO SCH (20:30)
[2018-10-23] MEDS: insulin glargine (Lantus) pen - multi-dose SQ SCH (21:11)
[2018-10-23] MEDS: diphenhydrAMINE 25 MG/10 ML UD oral solution NG SCH (21:18)
[2018-10-23] MEDS: acetaminophen 325mg tablet PO PRN (21:18)
[2018-10-24] VITALS: BP 127/68
[2018-10-24] MEDS: VANCOMYCIN LEVEL IV SCH (03:00)
[2018-10-24 06:42] LABS: BASOPHILS % (AUTO) 0.2 % (0-1); EOSINOPHILS # (AUTO) 0.3 X10'3 (0-0.9); EOSINOPHILS % (AUTO) 2.2 % (0-6); HEMATOCRIT 30.3 % (42.0-52.0); LYMPHOCYTES # (AUTO) 0.9 X10'3 (1.1-4.8); LYMPHOCYTES % (AUTO) 7.8 % (21-51); MEAN CORPUSCULAR HEMOGLOBIN 27.3 PG (27.0-31.0); MEAN CORPUSCULAR VOLUME 82.8 FL (78-98); MEAN PLATELET VOLUME 10.8 FL (7.4-10.4); MONOCYTES # (AUTO) 0.5 X10'3 (0-0.9); MONOCYTES % (AUTO) 4.3 % (2-12); NEUTROPHILS # (AUTO) 9.7 X10'3 (1.8-7.7); NEUTROPHILS % (AUTO) 85.5 % (42-75); PLATELET COUNT 249 X10'3 (140-440); RED BLOOD COUNT 3.66 X10'6 (4.70-6.10); RED CELL DISTRIBUTION WIDTH 17.9 % (11.5-14.5); WHITE BLOOD COUNT 11.3 X10'3 (4.5-11.0)
--- NOTE | 2018-10-24 06:50 | NUR ---
Patient in room [facility] 352. I have received report from NORMAN Niño and had the opportunity to ask questions and assume patient care.
[2018-10-24 06:56] LABS: ANION GAP 9 (8-16); BLOOD UREA NITROGEN 53 MG/DL (7-18); BUN/CREATININE RATIO 13.1 (5.4-32.0); CALCIUM 7.6 MG/DL (8.5-10.1); CHLORIDE 100 MMOL/L (99-107); CREATININE 4.06 MG/DL (0.60-1.10); GLUCOSE 111 MG/DL (70-104); MAGNESIUM 1.9 MG/DL (1.5-2.4); PHOSPHORUS 4.7 MG/DL (2.3-4.5); POTASSIUM 4.3 MMOL/L (3.5-5.1); SODIUM 140 MMOL/L (135-145); TOTAL CARBON DIOXIDE 30.8 MMOL/L (24-32); VANCOMYCIN,RANDOM 17.8 UG/ML; eGFR 15 ML/MIN
[2018-10-24 07:00] VITALS: BP 142/69
--- NOTE | 2018-10-24 07:04 | NUR ---
Problems reprioritized. Patient report given, questions answered & plan of care reviewed with Muriel AUSTIN. resting eyes closed respirations even
[2018-10-24] MEDS: docusate sodium 100mg/10ml UD cup PO SCH ×2 (08:00→21:15)
[2018-10-24] MEDS: losartan 25mg tablet PO SCH (10:13)
[2018-10-24] MEDS: citalopram 20mg tablet PO SCH (10:13)
[2018-10-24] MEDS: lactobacillus rhamnosus 10,000 MMU CELLS/CAPSULE PO SCH ×2 (10:14→21:12)
[2018-10-24] MEDS: furosemide 40mg tablet PO SCH ×2 (10:14→21:14)
[2018-10-24] MEDS: aspirin 81mg tablet.DR PO SCH (10:14)
[2018-10-24] MEDS: multivitamins, therapeutics tablet PO SCH (10:15)
[2018-10-24] MEDS: amLODIPine 5mg tablet PO SCH (10:15)
[2018-10-24] MEDS: linezolid 600mg tablet PO SCH ×2 (10:15→21:14)
[2018-10-24 11:00] VITALS: BP 118/65
--- NOTE | 2018-10-24 18:07 | NUR ---
Problems reprioritized. Patient report given, questions answered & plan of care reviewed with NORMAN Johnson. Patient resting comfortably at this time. Call light and items of frequent use in reach of patient.
--- NOTE | 2018-10-24 18:30 | NUR ---
Patient in room [facility] 352. I have received report from SONNY and had the opportunity to ask questions and assume patient care.
[2018-10-24 19:30] VITALS: BP 125/65
[2018-10-24] MEDS: atorvastatin 20mg tablet PO SCH (21:14)
[2018-10-24] MEDS: diphenhydrAMINE 25 MG/10 ML UD oral solution NG SCH (21:15)
[2018-10-24] MEDS: insulin glargine (Lantus) pen - multi-dose SQ SCH (21:17)
[2018-10-25] VITALS: BP 123/64
[2018-10-25] MEDS: VANCOMYCIN LEVEL IV SCH (03:00)
--- NOTE | 2018-10-25 03:00 | NUR ---
NO URINE IN CONDOM CATH. BLADDER SCANNED FOR 259ML. PT DENIES URGE TO VOID. WILL CONTINUE TO MONITOR.
[2018-10-25 06:04] LABS: BASOPHILS % (AUTO) 0.1 % (0-1); EOSINOPHILS # (AUTO) 0.3 X10'3 (0-0.9); EOSINOPHILS % (AUTO) 2.3 % (0-6); HEMATOCRIT 30.8 % (42.0-52.0); LYMPHOCYTES % (AUTO) 9.1 % (21-51); MEAN CORPUSCULAR HEMOGLOBIN 26.9 PG (27.0-31.0); MEAN CORPUSCULAR HGB CONC 32.4 % (33.0-36.5); MEAN CORPUSCULAR VOLUME 83.1 FL (78-98); MEAN PLATELET VOLUME 11.1 FL (7.4-10.4); MONOCYTES # (AUTO) 0.4 X10'3 (0-0.9); MONOCYTES % (AUTO) 3.6 % (2-12); NEUTROPHILS # (AUTO) 9.3 X10'3 (1.8-7.7); NEUTROPHILS % (AUTO) 84.9 % (42-75); PLATELET COUNT 240 X10'3 (140-440); RED BLOOD COUNT 3.71 X10'6 (4.70-6.10); RED CELL DISTRIBUTION WIDTH 18.5 % (11.5-14.5)
[2018-10-25 06:20] LABS: ALBUMIN 2.1 G/DL (3.4-5.0); ANION GAP 13 (8-16); BLOOD UREA NITROGEN 69 MG/DL (7-18); BUN/CREATININE RATIO 12.8 (5.4-32.0); CALCIUM 7.9 MG/DL (8.5-10.1); CHLORIDE 96 MMOL/L (99-107); CREATININE 5.37 MG/DL (0.60-1.10); GLUCOSE 173 MG/DL (70-104); MAGNESIUM 2.1 MG/DL (1.5-2.4); PHOSPHORUS 6.5 MG/DL (2.3-4.5); POTASSIUM 4.6 MMOL/L (3.5-5.1); SODIUM 138 MMOL/L (135-145); TOTAL CARBON DIOXIDE 29.1 MMOL/L (24-32); VANCOMYCIN,RANDOM 17.2 UG/ML; eGFR 11 ML/MIN
--- NOTE | 2018-10-25 06:28 | NUR ---
Problems reprioritized. Patient report given, questions answered & plan of care reviewed with CHEKO .
[2018-10-25 07:40] VITALS: BP 137/70
[2018-10-25] MEDS ORDERED: heparin 1,000unit/ml 10ml vial 10 ML IV ONE (08:00)
[2018-10-25] MEDS ORDERED: normal saline 1000ml 250 ML IV PRN (08:00)
[2018-10-25] MEDS ORDERED: heparin 1,000 units/ml 10ml inj HE ONE ×2 (08:00)
[2018-10-25] MEDS ORDERED: epoetin 20,000 units/ml inj IV ONE (08:00)
[2018-10-25] MEDS: lactobacillus rhamnosus 10,000 MMU CELLS/CAPSULE PO SCH ×2 (08:10→20:57)
[2018-10-25] MEDS: docusate sodium 100mg/10ml UD cup PO SCH ×2 (08:10→20:56)
[2018-10-25] MEDS: aspirin 81mg tablet.DR PO SCH (08:10)
[2018-10-25] MEDS: citalopram 20mg tablet PO SCH (08:10)
[2018-10-25] MEDS: losartan 25mg tablet PO SCH (08:10)
[2018-10-25] MEDS: furosemide 40mg tablet PO SCH ×2 (08:10→20:57)
[2018-10-25] MEDS: amLODIPine 5mg tablet PO SCH (08:10)
[2018-10-25] MEDS: linezolid 600mg tablet PO SCH ×2 (08:10→20:56)
[2018-10-25] MEDS: multivitamins, therapeutics tablet PO SCH (08:10)
[2018-10-25] MEDS: insulin Lispro (HumaLOG) vial - multi-dose SQ SCH (08:29)
[2018-10-25 11:28] VITALS: BP 127/64
--- NOTE | 2018-10-25 18:31 | NUR ---
Received report from NORMAN Celaya. Patient is awake and alert on room air, in no apparent distress. Received HD currently. Call light and items of frequent use within reach. Will continue to monitor.
--- NOTE | 2018-10-25 18:38 | NUR ---
Problems reprioritized. Patient report given, questions answered & plan of care reviewed with NORMAN Bragg.
[2018-10-25 20:00] VITALS: BP 116/46
[2018-10-25] MEDS: atorvastatin 20mg tablet PO SCH (20:57)
[2018-10-25] MEDS: diphenhydrAMINE 25 MG/10 ML UD oral solution NG SCH (20:58)
[2018-10-25] MEDS: insulin glargine (Lantus) pen - multi-dose SQ SCH (21:16)
[2018-10-26] VITALS: BP 123/66
[2018-10-26] MEDS: VANCOMYCIN LEVEL IV SCH (01:30)
--- NOTE | 2018-10-26 06:31 | NUR ---
Problems reprioritized. Patient report given, questions answered & plan of care reviewed with NORMAN Celaya.
[2018-10-26 07:30] VITALS: BP 139/61
[2018-10-26] MEDS: docusate sodium 100mg/10ml UD cup PO SCH ×3 (07:38→20:16)
[2018-10-26] MEDS: linezolid 600mg tablet PO SCH ×2 (07:38→20:16)
[2018-10-26] MEDS: multivitamins, therapeutics tablet PO SCH (07:38)
[2018-10-26] MEDS: citalopram 20mg tablet PO SCH (07:38)
[2018-10-26] MEDS: furosemide 40mg tablet PO SCH ×2 (07:38→20:16)
[2018-10-26] MEDS: aspirin 81mg tablet.DR PO SCH (07:38)
[2018-10-26] MEDS: amLODIPine 5mg tablet PO SCH (07:38)
[2018-10-26] MEDS: losartan 25mg tablet PO SCH (07:38)
[2018-10-26] MEDS: lactobacillus rhamnosus 10,000 MMU CELLS/CAPSULE PO SCH ×2 (07:38→20:16)
[2018-10-26] MEDS ORDERED: vancomycin/NS 1 GM ADD-VANTAGE 250 ML IV ONE (08:25)
--- NOTE | 2018-10-26 11:28 | NUR ---
Patient in room [facility] 352. I have received report from NORMAN Lamas and had the opportunity to ask questions and assume patient care.
--- NOTE | 2018-10-26 11:38 | NUR ---
Reassessment: Patient persistently positive for MRSA in bloodstream, pending NM wbc scan per MD progress notes. LEATHA negative for endocarditis per MD progress notes. Patient's diet has been decreased to thickened clear liquid diet. [facility] 10/24. Will continue to follow. Recommendations: 1) Advance to pureed renal diet with honey thick liquids as medically indicated 2) Monitor need for additional bowel care 3) Wt per rx Addendum: 10/26/18 at [address] Amended: Links added.
[2018-10-26 11:45] VITALS: BP 111/59
[2018-10-26 13:18] LABS: OCCULT BLOOD STOOL POSITIVE (Neg)
[2018-10-26] MEDS ORDERED: heparin 1,000 units/ml 10ml inj HE ONE ×2 (13:40)
--- NOTE | 2018-10-26 16:35 | NUR ---
DR. FORD AT BEDSIDE, WOULD LIKE DIETARY CONSULT FOR TUBE FEEDINGS.
--- NOTE | 2018-10-26 18:07 | NUR ---
Problems reprioritized. Patient report given, questions answered & plan of care reviewed with NORMAN JARAMILLO.
[2018-10-26 19:20] VITALS: BP 120/52
[2018-10-26] MEDS: diphenhydrAMINE 25 MG/10 ML UD oral solution NG SCH (21:46)
[2018-10-26] MEDS: atorvastatin 20mg tablet PO SCH (21:46)
[2018-10-26] MEDS: insulin glargine (Lantus) pen - multi-dose SQ SCH (21:52)
[2018-10-27] VITALS: BP 122/45
[2018-10-27] MEDS: acetaminophen 325mg tablet PO PRN ×2 (00:29→10:41)
[2018-10-27] MEDS: VANCOMYCIN LEVEL IV SCH (03:00)
--- NOTE | 2018-10-27 06:40 | NUR ---
Problems reprioritized. Patient report given, questions answered & plan of care reviewed with CHEKO. Addendum: 10/27/18 at 0640 by Julius Bello RN Amended: Links added.
[2018-10-27] MEDS: linezolid 600mg tablet PO SCH ×2 (07:28→21:04)
[2018-10-27] MEDS: amLODIPine 5mg tablet PO SCH (07:28)
[2018-10-27] MEDS: furosemide 40mg tablet PO SCH ×2 (07:28→21:04)
[2018-10-27] MEDS: losartan 25mg tablet PO SCH (07:28)
[2018-10-27] MEDS: lactobacillus rhamnosus 10,000 MMU CELLS/CAPSULE PO SCH ×2 (07:28→21:04)
[2018-10-27] MEDS: aspirin 81mg tablet.DR PO SCH (07:28)
[2018-10-27] MEDS: citalopram 20mg tablet PO SCH (07:28)
[2018-10-27] MEDS: docusate sodium 100mg/10ml UD cup PO SCH ×2 (07:28→21:03)
[2018-10-27] MEDS: multivitamins, therapeutics tablet PO SCH (07:28)
[2018-10-27 07:40] VITALS: BP 141/72
[2018-10-27] MEDS ORDERED: albumin (Human) 5% 250ml 250 ML IV PRN (08:00)
[2018-10-27] MEDS ORDERED: heparin 1,000 units/ml 10ml inj HE ONE ×2 (08:00)
[2018-10-27] MEDS ORDERED: heparin 1,000 units/ml 10ml inj IV ONE (08:00)
[2018-10-27] MEDS ORDERED: heparin 1,000unit/ml 10ml vial 10 ML IV ONE (08:00)
[2018-10-27] MEDS ORDERED: epoetin 20,000 units/ml inj IV ONE (08:00)
[2018-10-27 11:55] VITALS: BP 120/57
--- NOTE | 2018-10-27 14:31 | NUR ---
Tube feedings consult: It appears that after having nausea and vomiting patient's diet was changed from pureed, renal to clears with honey thick liquid on 10/24. This diet is unable to meet the patient's needs and thus MD ordered a diet consult for tube feedings and patient currently has NG tube. CT scan on 10/23 revealed stool in rectosigmoid colon and it seems that since that patient has had two moderate stools on 10/26 and 10/27. Patient has colace BID however was note given on 10/26 and 10/27 d/t "not needed" per RN notes. Noted that phosphorus is elevated at 6.5 H, possibly needing phosphorus binder, will d/w MD. Recommendations: 1) Advance diet as medically indicated back to pureed renal diet with honey thick liquids 2) Continue bowel care as needed 3) Continuous NG tube feedings using Nepro Carbsteady at 50 ml/hr will provide total volume 1200 ml, 2160 cals, 97 gm protein, 872 ml water. 4) Prealbumin q 5) Daily weights Addendum: 10/27/18 at [address] Amended: Links added.
[2018-10-27] MEDS: HYDROcodone/acetaminophen 10/325mg tab PO PRN (17:47)
[2018-10-27 18:00] VITALS: BP 127/81
--- NOTE | 2018-10-27 18:51 | NUR ---
Problems reprioritized. Patient report given, questions answered & plan of care reviewed with NORMAN JEFFERY.
--- NOTE | 2018-10-27 18:52 | NUR ---
Patient in room [facility] 352. I have received report from NORMAN Celaya and had the opportunity to ask questions and assume patient care.
[2018-10-27] MEDS: insulin glargine (Lantus) pen - multi-dose SQ SCH (21:00)
[2018-10-27] MEDS: atorvastatin 20mg tablet PO SCH (21:04)
[2018-10-27] MEDS: diphenhydrAMINE 25 MG/10 ML UD oral solution NG SCH (21:06)
--- NOTE | 2018-10-27 23:12 | NUR ---
2100 Lantus non-admined, as pt was switched to tube feeding today and has not met protocol as of yet. Discussed situation with NORMAN Delcid, who agreed. Will continue to monitor.
[2018-10-28] VITALS: BP 115/56
[2018-10-28] MEDS: VANCOMYCIN LEVEL IV SCH (03:00)
--- NOTE | 2018-10-28 06:04 | NUR ---
Problems reprioritized. Patient report given, questions answered & plan of care reviewed with Timothy Tello.
--- NOTE | 2018-10-28 06:25 | NUR ---
Patient in room [facility] 352. I have received report from NORMAN Childress and had the opportunity to ask questions and assume patient care.
[2018-10-28 07:01] LABS: ALANINE AMINOTRANSFERASE 20 U/L (12-78); ALBUMIN/GLOBULIN RATIO 0.6 (1.1-1.5); ALKALINE PHOSPHATASE 92 IU/L (46-116); ANION GAP 10 (8-16); ASPARTATE AMINO TRANSFERASE 22 U/L (10-37); BILIRUBIN,TOTAL 0.4 MG/DL (0.1-1.0); BLOOD UREA NITROGEN 29 MG/DL (7-18); BUN/CREATININE RATIO 8.1 (5.4-32.0); CALCIUM 7.4 MG/DL (8.5-10.1); CHLORIDE 98 MMOL/L (99-107); CREATININE 3.59 MG/DL (0.60-1.10); GLUCOSE 202 MG/DL (70-104); POTASSIUM 4.3 MMOL/L (3.5-5.1); SODIUM 136 MMOL/L (135-145); TOTAL PROTEIN 5.6 G/DL (6.4-8.2); eGFR 17 ML/MIN
[2018-10-28 07:04] LABS: BASOPHILS % (AUTO) 0.2 % (0-1); EOSINOPHILS # (AUTO) 0.3 X10'3 (0-0.9); EOSINOPHILS % (AUTO) 2.1 % (0-6); HEMATOCRIT 31.9 % (42.0-52.0); HEMOGLOBIN 10.4 g/dl (14.0-17.9); LYMPHOCYTES # (AUTO) 0.8 X10'3 (1.1-4.8); LYMPHOCYTES % (AUTO) 5.2 % (21-51); MEAN CORPUSCULAR HEMOGLOBIN 27.3 PG (27.0-31.0); MEAN CORPUSCULAR HGB CONC 32.8 g/dL (33.0-36.5); MEAN CORPUSCULAR VOLUME 83.4 FL (78-98); MEAN PLATELET VOLUME 10.3 FL (7.4-10.4); MONOCYTES # (AUTO) 0.3 X10'3 (0-0.9); MONOCYTES % (AUTO) 1.9 % (2-12); NEUTROPHILS # (AUTO) 13.6 X10'3 (1.8-7.7); NEUTROPHILS % (AUTO) 90.6 % (42-75); PLATELET COUNT 224 X10'3 (140-440); RED BLOOD COUNT 3.83 X10'6 (4.70-6.10); RED CELL DISTRIBUTION WIDTH 18.1 % (11.5-14.5)
[2018-10-28 07:30] VITALS: BP 116/63
[2018-10-28] MEDS ORDERED: VANCOMYCIN LEVEL IV ONE (08:50)
[2018-10-28] MEDS: docusate sodium 100mg/10ml UD cup PO SCH ×2 (09:15→20:22)
[2018-10-28] MEDS: citalopram 20mg tablet PO SCH (09:15)
[2018-10-28] MEDS: losartan 25mg tablet PO SCH (09:16)
[2018-10-28] MEDS: amLODIPine 5mg tablet PO SCH (09:16)
[2018-10-28] MEDS: furosemide 40mg tablet PO SCH ×2 (09:16→20:21)
[2018-10-28] MEDS: lactobacillus rhamnosus 10,000 MMU CELLS/CAPSULE PO SCH ×2 (09:16→20:22)
[2018-10-28] MEDS: aspirin 81mg tablet.DR PO SCH (09:16)
[2018-10-28] MEDS: linezolid 600mg tablet PO SCH ×2 (09:17→20:21)
[2018-10-28] MEDS: multivitamins, therapeutics tablet PO SCH (09:17)
--- NOTE | 2018-10-28 09:30 | NUR ---
Patient swallowed his pills well around the NG tube. Only got about 20ML's of residual. Will try to contact dietary regarding the patients current diet. He has tube feeding and a diet ordered, but didn't receive a tray this am.
--- NOTE | 2018-10-28 09:57 | NUR ---
Reassessment 10/28: Pt continues with Nepro now at goal rate of 50 mL/hr and tolerating with low residuals 5-150 mL. No new phos lab draw taken at this time to assess at this time. Per MD note pt continues with HD and CM to d/w family the possibility of palliative/hospice care while also working on placement for pt. Will continue to follow. Tube feedings consult 10/27: It appears that after having nausea and vomiting patient's diet was changed from pureed, renal to clears with honey thick liquid on 10/24. This diet is unable to meet the patient's needs and thus MD ordered a diet consult for tube feedings and patient currently has NG tube. CT scan on 10/23 revealed stool in rectosigmoid colon and it seems that since that patient has had two moderate stools on 10/26 and 10/27. Patient has colace BID however was note given on 10/26 and 10/27 d/t "not needed" per RN notes. Noted that phosphorus is elevated at 6.5 H, possibly needing phosphorus binder, will d/w MD. Recommendations: 1) Advance diet as medically indicated back to pureed renal diet with honey thick liquids 2) Continue bowel care as needed 3) Continuous NG tube feedings using Nepro Carbsteady at 50 ml/hr will provide total volume 1200 ml, 2160 cals, 97 gm protein, 872 ml water. 4) Prealbumin q 5) Daily weights Addendum: 10/28/18 at [address] Amended: Links added.
[2018-10-28 11:37] VITALS: BP 116/64
--- NOTE | 2018-10-28 12:00 | NUR ---
Spoke with Dr. Jesus. The patient is okay to be just on tube feed and not clears/thickened liquids. He is also okay with nursing putting in a PIV if the patient needs to get Vancomycin and is NOT going to be receiving dialysis. He mentioned how important it is that he get the Vanco. The patient will hopefully need Vanco on the days he gets dialysis so that we won't need to put another line in him. The patient will also have a TDC placed tomorrow because his blood cultures have been negative for 2 days; he's a little bit concerned though that his white blood cell count went up today. Dr. Jesus has also been in contact with the family regarding DNR and palliative/comfort care. The patients grandson has been taking care of him but he wants to contact his uncle before making any decisions. The patient doesn't have a POA.
[2018-10-28] MEDS: insulin regular, human vial - multi-dose SQ SCH ×2 (15:15→20:21)
[2018-10-28 18:00] VITALS: BP 109/56
--- NOTE | 2018-10-28 18:00 | NUR ---
Problems reprioritized. Patient report given, questions answered & plan of care reviewed with NORMAN Childress.
--- NOTE | 2018-10-28 18:01 | NUR ---
Patient in room [facility] 352. I have received report from NORMAN Tello and had the opportunity to ask questions and assume patient care.
[2018-10-28] MEDS: atorvastatin 20mg tablet PO SCH (20:22)
[2018-10-28] MEDS: diphenhydrAMINE 25 MG/10 ML UD oral solution NG SCH (20:22)
[2018-10-28] MEDS: insulin glargine (Lantus) pen - multi-dose SQ SCH (20:22)
[2018-10-28] MEDS: HYDROcodone/acetaminophen 10/325mg tab PO PRN (20:38)
[2018-10-29] VITALS: BP 113/59
[2018-10-29] MEDS: dextrose ORAL solution 15 GM/59 ML bottle PO PRN (02:09)
[2018-10-29] MEDS: VANCOMYCIN LEVEL IV SCH (03:00)
--- NOTE | 2018-10-29 06:03 | NUR ---
Problems reprioritized. Patient report given, questions answered & plan of care reviewed with NORMAN Hummel.
[2018-10-29 06:52] LABS: ALANINE AMINOTRANSFERASE 20 U/L (12-78); ALBUMIN/GLOBULIN RATIO 0.6 (1.1-1.5); ALKALINE PHOSPHATASE 93 IU/L (46-116); ANION GAP 12 (8-16); ASPARTATE AMINO TRANSFERASE 22 U/L (10-37); BILIRUBIN,TOTAL 0.4 MG/DL (0.1-1.0); BLOOD UREA NITROGEN 49 MG/DL (7-18); BUN/CREATININE RATIO 9.6 (5.4-32.0); CALCIUM 7.7 MG/DL (8.5-10.1); CHLORIDE 97 MMOL/L (99-107); CREATININE 5.09 MG/DL (0.60-1.10); GLUCOSE 167 MG/DL (70-104); POTASSIUM 4.5 MMOL/L (3.5-5.1); SODIUM 137 MMOL/L (135-145); TOTAL CARBON DIOXIDE 27.8 MMOL/L (24-32); TOTAL PROTEIN 5.6 G/DL (6.4-8.2); VANCOMYCIN,RANDOM 17.6 UG/ML; eGFR 11 ML/MIN
[2018-10-29 06:53] LABS: BASOPHILS # (AUTO) 0.1 X10'3 (0-0.2); BASOPHILS % (AUTO) 0.6 % (0-1); EOSINOPHILS # (AUTO) 0.3 X10'3 (0-0.9); EOSINOPHILS % (AUTO) 2.4 % (0-6); HEMATOCRIT 31.1 % (42.0-52.0); LYMPHOCYTES # (AUTO) 1.1 X10'3 (1.1-4.8); LYMPHOCYTES % (AUTO) 7.8 % (21-51); MEAN CORPUSCULAR HEMOGLOBIN 26.7 PG (27.0-31.0); MEAN CORPUSCULAR HGB CONC 32.2 g/dL (33.0-36.5); MONOCYTES # (AUTO) 0.3 X10'3 (0-0.9); MONOCYTES % (AUTO) 2.1 % (2-12); NEUTROPHILS # (AUTO) 11.9 X10'3 (1.8-7.7); NEUTROPHILS % (AUTO) 87.1 % (42-75); PLATELET COUNT 212 X10'3 (140-440); RED BLOOD COUNT 3.75 X10'6 (4.70-6.10); RED CELL DISTRIBUTION WIDTH 18.4 % (11.5-14.5); WHITE BLOOD COUNT 13.6 X10'3 (4.5-11.0)
[2018-10-29 07:00] VITALS: BP 122/56
[2018-10-29] MEDS: multivitamins, therapeutics tablet PO SCH (08:00)
[2018-10-29] MEDS: amLODIPine 5mg tablet PO SCH (08:00)
[2018-10-29] MEDS: losartan 25mg tablet PO SCH (08:00)
[2018-10-29] MEDS: lactobacillus rhamnosus 10,000 MMU CELLS/CAPSULE PO SCH ×2 (08:00→21:12)
[2018-10-29] MEDS ORDERED: heparin 1,000 units/ml 10ml inj HE ONE ×2 (08:00)
[2018-10-29] MEDS ORDERED: heparin 1,000 units/ml 10ml inj IV ONE (08:00)
[2018-10-29] MEDS: furosemide 40mg tablet PO SCH ×2 (08:00→20:00)
[2018-10-29] MEDS: aspirin 81mg tablet.DR PO SCH (08:00)
[2018-10-29] MEDS ORDERED: albumin (Human) 5% 250ml 250 ML IV PRN (08:00)
[2018-10-29] MEDS ORDERED: epoetin 20,000 units/ml inj IV ONE (08:00)
[2018-10-29] MEDS ORDERED: heparin 1,000unit/ml 10ml vial 10 ML IV ONE (08:00)
[2018-10-29] MEDS: linezolid 600mg tablet PO SCH ×2 (08:37→21:12)
[2018-10-29] MEDS: citalopram 20mg tablet PO SCH (08:37)
[2018-10-29] MEDS: docusate sodium 100mg/10ml UD cup PO SCH ×2 (08:55→21:12)
[2018-10-29] MEDS: insulin regular, human vial - multi-dose SQ SCH ×3 (09:17→21:07)
[2018-10-29 11:10] VITALS: BP 113/59
--- NOTE | 2018-10-29 11:50 | NUR ---
PT STATES THAT HE DOES NOT FEEL LIKE HE NEEDS TO URINATE, HOWEVER HE DOES HAVE MILD BLADDER DISTENTION AND BLADDER SCAN SHOWS [address] MORRIS. Addendum: 10/29/18 at 1151 by Marguerite Strong RN Amended: Links added.
[2018-10-29] MEDS ORDERED: LIDOcaine 1%/PF 5ML 10 MG/ML VIAL ONE (13:23)
[2018-10-29] MEDS ORDERED: heparin 1,000unit/ml 10ml vial 10 ML ONE (13:23)
[2018-10-29] MEDS ORDERED: midazolam 2 mg/2 ml injection ONE (13:24)
[2018-10-29] MEDS ORDERED: fentaNYL/PF 50MCG/1 ML 2ML syringe ONE (13:24)
--- NOTE | 2018-10-29 14:23 | NUR ---
PT RETURNED FROM IR, A&O
[2018-10-29] MEDS ORDERED: naloxone 0.4 mg/ml inj IV ONE (16:50)
[2018-10-29] MEDS ORDERED: normal saline 1000ml 1,000 ML IV ONE (16:50)
[2018-10-29] MEDS ORDERED: naloxone 0.4 mg/ml inj ONE (16:53)
--- NOTE | 2018-10-29 18:34 | NUR ---
Problems reprioritized. Patient report given, questions answered & plan of care reviewed with AMBAR AUSTIN.
--- NOTE | 2018-10-29 18:44 | NUR ---
Patient in room [facility] 352. I have received report from Estephanie AUSTIN and had the opportunity to ask questions and assume patient care. Patient receiving dialysis, dialysis nurse gave narcan 94 minutes ago. Non-administered duplicate order. Will continue to monitor.
[2018-10-29 19:00] VITALS: BP 119/66
--- NOTE | 2018-10-29 20:53 | NUR ---
Discussed with Miki Jiménez patient's drop in blood pressure during dialysis today to 71/49 at 1630. Albumin and narcan provided per report. Blood pressure now is 127/55. Received order to hold tonight's dose and return to normal tomorrow. Also discussed blood sugar of 98 and lantus 5 units he stated to give both lantus and humlin. Will continue to monitor.
[2018-10-29] MEDS: insulin glargine (Lantus) pen - multi-dose SQ SCH (21:08)
[2018-10-29] MEDS: diphenhydrAMINE 25 MG/10 ML UD oral solution NG SCH (21:12)
[2018-10-29] MEDS: atorvastatin 20mg tablet PO SCH (21:12)
[2018-10-29] MEDS: HYDROcodone/acetaminophen 10/325mg tab PO PRN (23:19)
[2018-10-29] MEDS: acetaminophen 325mg tablet PO PRN (23:43)
[2018-10-30] VITALS: BP 113/53
--- NOTE | 2018-10-30 02:30 | NUR ---
Patient refused insulin at this time. will continue to monitor.
[2018-10-30] MEDS: VANCOMYCIN LEVEL IV SCH (03:00)
--- NOTE | 2018-10-30 06:30 | NUR ---
Problems reprioritized. Patient report given, questions answered & plan of care reviewed with Estephanie RN, residual checked patient resting.
[2018-10-30 06:57] LABS: BASOPHILS % (AUTO) 0.3 % (0-1); EOSINOPHILS # (AUTO) 0.5 X10'3 (0-0.9); EOSINOPHILS % (AUTO) 4.9 % (0-6); HEMATOCRIT 26.6 % (42.0-52.0); HEMOGLOBIN 8.6 g/dl (14.0-17.9); LYMPHOCYTES # (AUTO) 0.9 X10'3 (1.1-4.8); LYMPHOCYTES % (AUTO) 8.2 % (21-51); MEAN CORPUSCULAR HEMOGLOBIN 27.1 PG (27.0-31.0); MEAN CORPUSCULAR HGB CONC 32.5 g/dL (33.0-36.5); MEAN CORPUSCULAR VOLUME 83.6 FL (78-98); MEAN PLATELET VOLUME 10.7 FL (7.4-10.4); MONOCYTES # (AUTO) 0.3 X10'3 (0-0.9); MONOCYTES % (AUTO) 2.4 % (2-12); NEUTROPHILS # (AUTO) 9.3 X10'3 (1.8-7.7); NEUTROPHILS % (AUTO) 84.2 % (42-75); PLATELET COUNT 168 X10'3 (140-440); RED BLOOD COUNT 3.18 X10'6 (4.70-6.10); RED CELL DISTRIBUTION WIDTH 18.7 % (11.5-14.5); WHITE BLOOD COUNT 11.1 X10'3 (4.5-11.0)
[2018-10-30 07:14] VITALS: BP 134/65
[2018-10-30 07:39] LABS: PLATELET ESTIMATE NORMAL
[2018-10-30 07:40] LABS: ANISOCYTOSIS 2+; ELLIPTOCYTES 1+; HYPOCHROMASIA 1+; LARGE PLATELETS FEW; POLYCHROMASIA 1+
[2018-10-30 07:44] LABS: ALANINE AMINOTRANSFERASE 22 U/L (12-78); ALBUMIN 1.9 G/DL (3.4-5.0); ALBUMIN/GLOBULIN RATIO 0.6 (1.1-1.5); ALKALINE PHOSPHATASE 100 IU/L (46-116); ANION GAP 8 (8-16); ASPARTATE AMINO TRANSFERASE 25 U/L (10-37); BILIRUBIN,TOTAL 0.4 MG/DL (0.1-1.0); BLOOD UREA NITROGEN 26 MG/DL (7-18); BUN/CREATININE RATIO 8.9 (5.4-32.0); CALCIUM 7.4 MG/DL (8.5-10.1); CHLORIDE 100 MMOL/L (99-107); CREATININE 2.91 MG/DL (0.60-1.10); GLUCOSE 183 MG/DL (70-104); SODIUM 137 MMOL/L (135-145); TOTAL PROTEIN 5.2 G/DL (6.4-8.2); eGFR 22 ML/MIN
[2018-10-30 07:46] LABS: VANCOMYCIN,RANDOM 13.3 UG/ML
[2018-10-30] MEDS ORDERED: vancomycin/NS 1 GM ADD-VANTAGE 250 ML IV NR (08:05)
[2018-10-30] MEDS: amLODIPine 5mg tablet PO SCH (08:24)
[2018-10-30] MEDS: citalopram 20mg tablet PO SCH (08:24)
[2018-10-30] MEDS: aspirin 81mg tablet.DR PO SCH (08:24)
[2018-10-30] MEDS: linezolid 600mg tablet PO SCH ×2 (08:24→20:08)
[2018-10-30] MEDS: docusate sodium 100mg/10ml UD cup PO SCH ×2 (08:24→20:08)
[2018-10-30] MEDS: losartan 25mg tablet PO SCH (08:24)
[2018-10-30] MEDS: furosemide 40mg tablet PO SCH ×2 (08:24→20:09)
[2018-10-30] MEDS: lactobacillus rhamnosus 10,000 MMU CELLS/CAPSULE PO SCH ×2 (08:24→20:08)
[2018-10-30] MEDS: multivitamins, therapeutics tablet PO SCH (08:24)
[2018-10-30] MEDS: insulin regular, human vial - multi-dose SQ SCH ×2 (09:02→20:27)
[2018-10-30 11:36] VITALS: BP 122/60
--- NOTE | 2018-10-30 14:39 | NUR ---
Reassessment 10/30: Patient tolerating TF at goal rate. Noted that residuals were 100-230 mL 10/29 however have been documented as 30-50 mL 10/30. Pt currently with no active PO diet order however noted that it's documented that pt consumed 75% of protein this afternoon. Pt continues with HD three times a week per MD notes. MRSA cultures are now negative however pt continues with IV abx per MD progress notes. Will continue to follow. Tube feedings consult 10/27: It appears that after having nausea and vomiting patient's diet was changed from pureed, renal to clears with honey thick liquid on 10/24. This diet is unable to meet the patient's needs and thus MD ordered a diet consult for tube feedings and patient currently has NG tube. CT scan on 10/23 revealed stool in rectosigmoid colon and it seems that since that patient has had two moderate stools on 10/26 and 10/27. Patient has colace BID however was note given on 10/26 and 10/27 d/t "not needed" per RN notes. Noted that phosphorus is elevated at 6.5 H, possibly needing phosphorus binder, will d/w MD. Recommendations: 1) Advance diet as medically indicated back to pureed renal diet with honey thick liquids 2) Continue bowel care as needed 3) Continuous NG tube feedings using Nepro Carbsteady at 50 ml/hr will provide total volume 1200 ml, 2160 cals, 97 gm protein, 872 ml water. 4) Prealbumin q / 5) Daily weights Addendum: 10/30/18 at [address] Amended: Links added.
[2018-10-30 18:00] VITALS: BP 133/71
--- NOTE | 2018-10-30 18:44 | NUR ---
Problems reprioritized. Patient report given, questions answered & plan of care reviewed with LEONARDO AUSTIN.
[2018-10-30] MEDS: diphenhydrAMINE 25 MG/10 ML UD oral solution NG SCH (20:08)
[2018-10-30] MEDS: atorvastatin 20mg tablet PO SCH (20:08)
[2018-10-30] MEDS: insulin glargine (Lantus) pen - multi-dose SQ SCH (21:11)
[2018-10-30] MEDS: HYDROcodone/acetaminophen 10/325mg tab PO PRN (21:12)
--- NOTE | 2018-10-30 23:36 | NUR ---
Patient in room [facility]. I have received report from Estephanie AUSTIN and had the opportunity to ask questions and assume patient care. Pt hooked up to NG feeding, no s/s of distress. pt is sitting upright. Addendum: 10/30/18 at 2337 by Randall Auguste RN Incorrect time, correct time is 1830
[2018-10-31] VITALS: BP 121/55
[2018-10-31] MEDS: acetaminophen 325mg tablet PO PRN (00:38)
[2018-10-31] MEDS: insulin regular, human vial - multi-dose SQ SCH ×4 (01:56→22:06)
[2018-10-31] MEDS: VANCOMYCIN LEVEL IV SCH (02:51)
--- NOTE | 2018-10-31 06:30 | NUR ---
Problems reprioritized. Patient report given, questions answered & plan of care reviewed with Kailyn AUSTIN. Patient in room, NG tube in place, no s/s of distress.
--- NOTE | 2018-10-31 06:35 | NUR ---
Patient in room [facility]. I have received report from LEONARDO AUSTIN and had the opportunity to ask questions and assume patient care. PATIENT ON HIS RIGHT SIDE SLEEPING
[2018-10-31 07:17] VITALS: BP 123/59
[2018-10-31 08:07] LABS: BASOPHILS # (AUTO) 0.1 X10'3 (0-0.2); BASOPHILS % (AUTO) 0.6 % (0-1); EOSINOPHILS # (AUTO) 0.5 X10'3 (0-0.9); HEMATOCRIT 27.4 % (42.0-52.0); HEMOGLOBIN 8.9 g/dl (14.0-17.9); LYMPHOCYTES # (AUTO) 0.7 X10'3 (1.1-4.8); LYMPHOCYTES % (AUTO) 6.4 % (21-51); MEAN CORPUSCULAR HEMOGLOBIN 27.3 PG (27.0-31.0); MEAN CORPUSCULAR HGB CONC 32.6 g/dL (33.0-36.5); MEAN CORPUSCULAR VOLUME 83.7 FL (78-98); MEAN PLATELET VOLUME 9.3 FL (7.4-10.4); MONOCYTES # (AUTO) 0.2 X10'3 (0-0.9); MONOCYTES % (AUTO) 2.1 % (2-12); NEUTROPHILS # (AUTO) 9.4 X10'3 (1.8-7.7); NEUTROPHILS % (AUTO) 85.9 % (42-75); PLATELET COUNT 159 X10'3 (140-440); RED BLOOD COUNT 3.27 X10'6 (4.70-6.10); RED CELL DISTRIBUTION WIDTH 18.3 % (11.5-14.5); WHITE BLOOD COUNT 10.9 X10'3 (4.5-11.0)
[2018-10-31 08:29] LABS: ALANINE AMINOTRANSFERASE 21 U/L (12-78); ALBUMIN 1.9 G/DL (3.4-5.0); ALBUMIN/GLOBULIN RATIO 0.6 (1.1-1.5); ALKALINE PHOSPHATASE 103 IU/L (46-116); ANION GAP 7 (8-16); ASPARTATE AMINO TRANSFERASE 23 U/L (10-37); BILIRUBIN,TOTAL 0.3 MG/DL (0.1-1.0); BLOOD UREA NITROGEN 49 MG/DL (7-18); BUN/CREATININE RATIO 11.4 (5.4-32.0); CALCIUM 7.5 MG/DL (8.5-10.1); CHLORIDE 98 MMOL/L (99-107); CREATININE 4.31 MG/DL (0.60-1.10); GLUCOSE 177 MG/DL (70-104); POTASSIUM 4.2 MMOL/L (3.5-5.1); SODIUM 135 MMOL/L (135-145); TOTAL CARBON DIOXIDE 29.7 MMOL/L (24-32); TOTAL PROTEIN 5.2 G/DL (6.4-8.2); VANCOMYCIN,RANDOM 22.4 UG/ML; eGFR 14 ML/MIN
[2018-10-31] MEDS: aspirin 81mg tablet.DR PO SCH (09:12)
[2018-10-31] MEDS: linezolid 600mg tablet PO SCH ×2 (09:12→21:44)
[2018-10-31] MEDS: multivitamins, therapeutics tablet PO SCH (09:12)
[2018-10-31] MEDS: docusate sodium 100mg/10ml UD cup PO SCH ×2 (09:12→21:42)
[2018-10-31] MEDS: lactobacillus rhamnosus 10,000 MMU CELLS/CAPSULE PO SCH ×2 (09:12→21:43)
[2018-10-31] MEDS: citalopram 20mg tablet PO SCH (09:12)
[2018-10-31] MEDS: furosemide 40mg tablet PO SCH ×2 (09:12→21:43)
[2018-10-31] MEDS: amLODIPine 5mg tablet PO SCH (09:12)
[2018-10-31] MEDS: losartan 25mg tablet PO SCH (09:13)
[2018-10-31 11:19] VITALS: BP 113/56
--- NOTE | 2018-10-31 13:00 | NUR ---
I SPOKE TO REYMUNDO CARTER REGARDING THE PATIENT TAKING TWO SIPS OF HONEY THICK FLUID OUT OF HIS SIP CUP AND BEGAN TO COUGH UNCONTROLLABLY. REYMUNDO GAVE ORDERS TO BE PLACED AND TO MAKE NPO OF NOW.
--- NOTE | 2018-10-31 18:36 | NUR ---
Problems reprioritized. Patient report given, EDILMA AUSTIN questions answered & plan of care reviewed with . PATIENT IN BED RESTING CALL LIGHT IN REACH, BED LOW AND LOCKED
--- NOTE | 2018-10-31 18:44 | NUR ---
Patient in room [facility]. I have received report from Kailyn AUSTIN and had the opportunity to ask questions and assume patient care.
[2018-10-31 19:00] VITALS: BP 111/58
[2018-10-31] MEDS: atorvastatin 20mg tablet PO SCH (21:44)
[2018-10-31] MEDS: HYDROcodone/acetaminophen 10/325mg tab PO PRN (21:44)
[2018-10-31] MEDS: diphenhydrAMINE 25 MG/10 ML UD oral solution NG SCH (21:45)
[2018-10-31] MEDS: insulin glargine (Lantus) pen - multi-dose SQ SCH (21:58)
[2018-11-01] VITALS: BP 121/58
[2018-11-01] MEDS: VANCOMYCIN LEVEL IV SCH (03:00)
[2018-11-01] MEDS: insulin regular, human vial - multi-dose SQ SCH ×3 (04:57→20:46)
--- NOTE | 2018-11-01 06:35 | NUR ---
Patient in room [facility]. I have received report from Shanelle AUSTIN and had the opportunity to ask questions and assume patient care. Patient in bed resting appears comfortable, bed low locked call light in reach
[2018-11-01 07:05] VITALS: BP 118/58
[2018-11-01 07:13] LABS: BASOPHILS # (AUTO) 0.1 X10'3 (0-0.2); BASOPHILS % (AUTO) 0.7 % (0-1); EOSINOPHILS # (AUTO) 0.4 X10'3 (0-0.9); EOSINOPHILS % (AUTO) 3.2 % (0-6); HEMATOCRIT 26.2 % (42.0-52.0); HEMOGLOBIN 8.6 g/dl (14.0-17.9); LYMPHOCYTES # (AUTO) 0.7 X10'3 (1.1-4.8); MEAN CORPUSCULAR HEMOGLOBIN 27.4 PG (27.0-31.0); MEAN CORPUSCULAR HGB CONC 32.7 g/dL (33.0-36.5); MEAN CORPUSCULAR VOLUME 83.8 FL (78-98); MEAN PLATELET VOLUME 9.4 FL (7.4-10.4); MONOCYTES # (AUTO) 0.3 X10'3 (0-0.9); MONOCYTES % (AUTO) 2.8 % (2-12); NEUTROPHILS # (AUTO) 10.1 X10'3 (1.8-7.7); NEUTROPHILS % (AUTO) 87.3 % (42-75); PLATELET COUNT 140 X10'3 (140-440); RED BLOOD COUNT 3.12 X10'6 (4.70-6.10); RED CELL DISTRIBUTION WIDTH 19.1 % (11.5-14.5); WHITE BLOOD COUNT 11.5 X10'3 (4.5-11.0)
[2018-11-01 07:34] LABS: ALANINE AMINOTRANSFERASE 20 U/L (12-78); ALBUMIN 1.9 G/DL (3.4-5.0); ALBUMIN/GLOBULIN RATIO 0.6 (1.1-1.5); ALKALINE PHOSPHATASE 106 IU/L (46-116); ANION GAP 10 (8-16); ASPARTATE AMINO TRANSFERASE 23 U/L (10-37); BILIRUBIN,TOTAL 0.3 MG/DL (0.1-1.0); BLOOD UREA NITROGEN 68 MG/DL (7-18); BUN/CREATININE RATIO 13.3 (5.4-32.0); CALCIUM 7.9 MG/DL (8.5-10.1); CHLORIDE 97 MMOL/L (99-107); CREATININE 5.13 MG/DL (0.60-1.10); GLUCOSE 143 MG/DL (70-104); POTASSIUM 4.2 MMOL/L (3.5-5.1); PREALBUMIN 17.5 MG/DL (19-36); SODIUM 135 MMOL/L (135-145); TOTAL PROTEIN 5.2 G/DL (6.4-8.2); VANCOMYCIN,RANDOM 22.3 UG/ML; eGFR 11 ML/MIN
[2018-11-01] MEDS ORDERED: normal saline 1000ml 250 ML IV PRN (08:26)
[2018-11-01] MEDS ORDERED: heparin 1,000unit/ml 10ml vial 10 ML IV ONE (08:26)
[2018-11-01] MEDS ORDERED: epoetin 20,000 units/ml inj IV ONE (08:30)
[2018-11-01] MEDS ORDERED: heparin 1,000 units/ml 10ml inj HE ONE ×2 (08:30)
[2018-11-01] MEDS: multivitamins, therapeutics tablet PO SCH (08:37)
[2018-11-01] MEDS: lactobacillus rhamnosus 10,000 MMU CELLS/CAPSULE PO SCH ×2 (08:37→21:19)
[2018-11-01] MEDS: furosemide 40mg tablet PO SCH ×2 (08:37→21:19)
[2018-11-01] MEDS: citalopram 20mg tablet PO SCH (08:37)
[2018-11-01] MEDS: amLODIPine 5mg tablet PO SCH (08:37)
[2018-11-01] MEDS: losartan 25mg tablet PO SCH (08:37)
[2018-11-01] MEDS: aspirin 81mg tablet.DR PO SCH (08:37)
[2018-11-01] MEDS: docusate sodium 100mg/10ml UD cup PO SCH ×2 (08:37→21:19)
[2018-11-01] MEDS: linezolid 600mg tablet PO SCH ×2 (08:40→21:20)
[2018-11-01] MEDS: HYDROcodone/acetaminophen 10/325mg tab PO PRN ×3 (10:57→21:21)
[2018-11-01 11:50] VITALS: BP 103/56
--- NOTE | 2018-11-01 17:20 | NUR ---
Damien's family was in room son Jabier and daughter in law Constantine who is the POA. The family was not happy about the phone call they received today from the doctor regarding patients code status.. They came in to check on Damien. The family was unaware the patient is a full code status. The POA Constantine said she will call Dr. Peralta and request the code status to be changed. I mnotified the charge Nurse of the conversation I had with the family.
--- NOTE | 2018-11-01 18:30 | NUR ---
Patient in room [facility]. I have received report from Kailyn AUSTIN and had the opportunity to ask questions and assume patient care.
[2018-11-01 20:00] VITALS: BP 134/62
[2018-11-01] MEDS: diphenhydrAMINE 25 MG/10 ML UD oral solution NG SCH (21:20)
[2018-11-01] MEDS: atorvastatin 20mg tablet PO SCH (21:20)
[2018-11-01] MEDS: insulin glargine (Lantus) pen - multi-dose SQ SCH (22:31)
[2018-11-02] VITALS: BP 99/56
[2018-11-02] MEDS: VANCOMYCIN LEVEL IV SCH (03:00)
[2018-11-02] MEDS: insulin regular, human vial - multi-dose SQ SCH ×4 (03:02→22:06)
--- NOTE | 2018-11-02 06:00 | NUR ---
847 total tube fee intake Addendum: 11/02/18 at 0706 by Shanelle Samaniego RN Amended: Links added.
--- NOTE | 2018-11-02 06:20 | NUR ---
Problems reprioritized. Patient report given, questions answered & plan of care reviewed with Kailyn AUSTIN.
--- NOTE | 2018-11-02 06:30 | NUR ---
Patient in room [facility]. I have received report from Shanelle AUSTIN and had the opportunity to ask questions and assume patient care.Patient in bed resting, bed low and locked, call light in reach.tabs attached
[2018-11-02 06:54] LABS: BASOPHILS # (AUTO) 0.1 X10'3 (0-0.2); BASOPHILS % (AUTO) 0.6 % (0-1); EOSINOPHILS # (AUTO) 0.4 X10'3 (0-0.9); EOSINOPHILS % (AUTO) 3.6 % (0-6); HEMATOCRIT 23.3 % (42.0-52.0); HEMOGLOBIN 7.7 g/dl (14.0-17.9); LYMPHOCYTES # (AUTO) 0.9 X10'3 (1.1-4.8); LYMPHOCYTES % (AUTO) 8.3 % (21-51); MEAN CORPUSCULAR HEMOGLOBIN 27.6 PG (27.0-31.0); MEAN CORPUSCULAR VOLUME 83.7 FL (78-98); MEAN PLATELET VOLUME 9.4 FL (7.4-10.4); MONOCYTES # (AUTO) 0.4 X10'3 (0-0.9); NEUTROPHILS # (AUTO) 9.4 X10'3 (1.8-7.7); NEUTROPHILS % (AUTO) 83.5 % (42-75); PLATELET COUNT 145 X10'3 (140-440); RED BLOOD COUNT 2.78 X10'6 (4.70-6.10); RED CELL DISTRIBUTION WIDTH 18.7 % (11.5-14.5); WHITE BLOOD COUNT 11.3 X10'3 (4.5-11.0)
[2018-11-02 07:05] LABS: ALANINE AMINOTRANSFERASE 21 U/L (12-78); ALBUMIN 1.8 G/DL (3.4-5.0); ALBUMIN/GLOBULIN RATIO 0.5 (1.1-1.5); ALKALINE PHOSPHATASE 93 IU/L (46-116); ANION GAP 9 (8-16); ASPARTATE AMINO TRANSFERASE 19 U/L (10-37); BILIRUBIN,TOTAL 0.3 MG/DL (0.1-1.0); BLOOD UREA NITROGEN 41 MG/DL (7-18); BUN/CREATININE RATIO 12.1 (5.4-32.0); CALCIUM 7.7 MG/DL (8.5-10.1); CHLORIDE 100 MMOL/L (99-107); GLUCOSE 122 MG/DL (70-104); POTASSIUM 4.1 MMOL/L (3.5-5.1); SODIUM 139 MMOL/L (135-145); TOTAL PROTEIN 5.1 G/DL (6.4-8.2); VANCOMYCIN,RANDOM 17.4 UG/ML; eGFR 18 ML/MIN
[2018-11-02 07:15] VITALS: BP 115/56
[2018-11-02] MEDS: HYDROcodone/acetaminophen 10/325mg tab PO PRN ×3 (08:32→21:52)
[2018-11-02] MEDS: citalopram 20mg tablet PO SCH (08:32)
[2018-11-02] MEDS: docusate sodium 100mg/10ml UD cup PO SCH ×2 (08:32→21:52)
[2018-11-02] MEDS: losartan 25mg tablet PO SCH (08:32)
[2018-11-02] MEDS: amLODIPine 5mg tablet PO SCH (08:32)
[2018-11-02] MEDS: lactobacillus rhamnosus 10,000 MMU CELLS/CAPSULE PO SCH ×2 (08:32→21:51)
[2018-11-02] MEDS: multivitamins, therapeutics tablet PO SCH (08:33)
[2018-11-02] MEDS: furosemide 40mg tablet PO SCH ×2 (08:33→21:52)
[2018-11-02] MEDS: aspirin 81mg tablet.DR PO SCH (08:33)
[2018-11-02] MEDS: linezolid 600mg tablet PO SCH ×2 (08:36→21:53)
--- NOTE | 2018-11-02 09:58 | NUR ---
Reassessment 11/02: Pt seen by EMD SPECIAL EDUCATION TEACHER for BSS 11/02 who states pt coughs after swallowing food and liquids and needs alternative nutrition. Pt continues to tolerate TF at goal with low residuals 0-70 mL. LBM 2. Will continue to follow. Tube feedings consult 10/27: It appears that after having nausea and vomiting patient's diet was changed from pureed, renal to clears with honey thick liquid on 10/24. This diet is unable to meet the patient's needs and thus MD ordered a diet consult for tube feedings and patient currently has NG tube. CT scan on 10/23 revealed stool in rectosigmoid colon and it seems that since that patient has had two moderate stools on 10/26 and 10/27. Patient has colace BID however was note given on 10/26 and 10/27 d/t "not needed" per RN notes. Noted that phosphorus is elevated at 6.5 H, possibly needing phosphorus binder, will d/w MD. Recommendations: 1) Advance diet as medically indicated back to pureed renal diet with honey thick liquids 2) Continue bowel care as needed 3) Continuous NG tube feedings using Nepro Carbsteady at 50 ml/hr will provide total volume 1200 ml, 2160 cals, 97 gm protein, 872 ml water. 4) Prealbumin q 5) Daily weights Addendum: 11/02/18 at [address] Amended: Links added.
[2018-11-02 11:38] VITALS: BP 131/60
--- NOTE | 2018-11-02 12:17 | NUR ---
I spoke with Constantine mary Jabier Quezada's POA this morning in great length. She is working with her family to clarify code status and the plan for Damien. I gave her Dr. Peralta's number and she will call him with the code status as soon as she speaks with all Damien's son's. She was very unhappy with my phone call. She said this is the second conversation she has had with staff from our facility regarding Damien's code status. I explained to her that he is currently a full code and after or conversation yesterday she wanted his status to be a DNR and that has not happened. I did contact Dr. Cano and he is aware.
--- NOTE | 2018-11-02 18:07 | NUR ---
Problems reprioritized. Patient report given, Debbie S questions answered & plan of care reviewed with . Patient in bed awake and alert, bed low locked call light in reach tabs alarm in place
[2018-11-02 19:38] VITALS: BP 103/57
[2018-11-02] MEDS: diphenhydrAMINE 25 MG/10 ML UD oral solution NG SCH (21:52)
[2018-11-02] MEDS: atorvastatin 20mg tablet PO SCH (21:52)
[2018-11-02] MEDS: insulin glargine (Lantus) pen - multi-dose SQ SCH (22:00)
[2018-11-03] VITALS: BP 116/66
[2018-11-03] MEDS: insulin regular, human vial - multi-dose SQ SCH ×4 (01:54→20:28)
[2018-11-03] MEDS: HYDROcodone/acetaminophen 10/325mg tab PO PRN ×2 (01:54→20:12)
[2018-11-03] MEDS: VANCOMYCIN LEVEL IV SCH (03:00)
--- NOTE | 2018-11-03 04:41 | NUR ---
Replaced dressing to spine
--- NOTE | 2018-11-03 05:25 | NUR ---
condom catheter placed.
[2018-11-03] MEDS ORDERED: vancomycin/NS 1 GM ADD-VANTAGE 250 ML IV PRN (06:25)
--- NOTE | 2018-11-03 06:30 | NUR ---
Problems reprioritized. Patient report given, questions answered & plan of care reviewed with NORMAN Browning.
--- NOTE | 2018-11-03 06:30 | NUR ---
Patient in room [facility]. I have received report from Debbie Ansari RN and had the opportunity to ask questions and assume patient care.
[2018-11-03 06:53] LABS: BASOPHILS % (AUTO) 0.1 % (0-1); EOSINOPHILS # (AUTO) 0.4 X10'3 (0-0.9); EOSINOPHILS % (AUTO) 4.3 % (0-6); HEMATOCRIT 24.4 % (42.0-52.0); HEMOGLOBIN 7.9 g/dl (14.0-17.9); LYMPHOCYTES # (AUTO) 0.9 X10'3 (1.1-4.8); LYMPHOCYTES % (AUTO) 8.5 % (21-51); MEAN CORPUSCULAR HEMOGLOBIN 27.3 PG (27.0-31.0); MEAN CORPUSCULAR HGB CONC 32.5 g/dL (33.0-36.5); MEAN PLATELET VOLUME 9.1 FL (7.4-10.4); MONOCYTES # (AUTO) 0.5 X10'3 (0-0.9); MONOCYTES % (AUTO) 4.7 % (2-12); NEUTROPHILS # (AUTO) 8.5 X10'3 (1.8-7.7); NEUTROPHILS % (AUTO) 82.4 % (42-75); PLATELET COUNT 141 X10'3 (140-440); RED BLOOD COUNT 2.91 X10'6 (4.70-6.10); RED CELL DISTRIBUTION WIDTH 18.1 % (11.5-14.5); WHITE BLOOD COUNT 10.3 X10'3 (4.5-11.0)
[2018-11-03 07:00] VITALS: BP 144/55
[2018-11-03 07:11] LABS: ALANINE AMINOTRANSFERASE 21 U/L (12-78); ALBUMIN 1.8 G/DL (3.4-5.0); ALBUMIN/GLOBULIN RATIO 0.5 (1.1-1.5); ALKALINE PHOSPHATASE 94 IU/L (46-116); ANION GAP 9 (8-16); ASPARTATE AMINO TRANSFERASE 24 U/L (10-37); BILIRUBIN,TOTAL 0.3 MG/DL (0.1-1.0); BLOOD UREA NITROGEN 62 MG/DL (7-18); BUN/CREATININE RATIO 14.5 (5.4-32.0); CHLORIDE 99 MMOL/L (99-107); CREATININE 4.29 MG/DL (0.60-1.10); GLUCOSE 107 MG/DL (70-104); SODIUM 139 MMOL/L (135-145); TOTAL CARBON DIOXIDE 30.6 MMOL/L (24-32); TOTAL PROTEIN 5.2 G/DL (6.4-8.2); VANCOMYCIN,RANDOM 16.9 UG/ML; eGFR 14 ML/MIN
[2018-11-03] MEDS ORDERED: epoetin 20,000 units/ml inj IV ONE (08:00)
[2018-11-03] MEDS ORDERED: normal saline 1000ml 250 ML IV PRN (08:00)
[2018-11-03] MEDS: furosemide 40mg tablet PO SCH ×2 (08:00→20:11)
[2018-11-03] MEDS: amLODIPine 5mg tablet PO SCH (08:00)
[2018-11-03] MEDS: losartan 25mg tablet PO SCH (08:00)
[2018-11-03] MEDS ORDERED: heparin 1,000unit/ml 10ml vial 10 ML IV ONE (08:00)
[2018-11-03] MEDS ORDERED: heparin 1,000 units/ml 10ml inj HE ONE ×2 (08:05)
[2018-11-03] MEDS: docusate sodium 100mg/10ml UD cup PO SCH ×2 (08:15→20:10)
[2018-11-03] MEDS: linezolid 600mg tablet PO SCH ×2 (08:16→20:10)
[2018-11-03] MEDS: citalopram 20mg tablet PO SCH (08:16)
[2018-11-03] MEDS: lactobacillus rhamnosus 10,000 MMU CELLS/CAPSULE PO SCH ×2 (08:16→20:10)
[2018-11-03] MEDS: aspirin 81mg tablet.DR PO SCH (08:16)
[2018-11-03] MEDS: multivitamins, therapeutics tablet PO SCH (08:16)
[2018-11-03 11:00] VITALS: BP 106/62
--- NOTE | 2018-11-03 15:39 | NUR ---
Patient currently sitting up in a chair assisted by Physical Therapist. Attached patient to the tab alarm. Call light within reach
--- NOTE | 2018-11-03 18:14 | NUR ---
Received report from NORMAN Castro. Patient is awake and alert on room air, in no apparent distress. Call light and items of frequent use within reach. Will continue to monitor.
--- NOTE | 2018-11-03 18:27 | NUR ---
Problems reprioritized. Patient report given, questions answered & plan of care reviewed with Mahsa AUSTIN.
[2018-11-03 20:00] VITALS: BP 145/69
[2018-11-03] MEDS: diphenhydrAMINE 25 MG/10 ML UD oral solution NG SCH (20:10)
[2018-11-03] MEDS: atorvastatin 20mg tablet PO SCH (20:11)
[2018-11-03] MEDS: insulin glargine (Lantus) pen - multi-dose SQ SCH (20:31)
[2018-11-04] VITALS: BP 138/81
[2018-11-04] MEDS: VANCOMYCIN LEVEL IV SCH (01:49)
--- NOTE | 2018-11-04 02:04 | NUR ---
Patient refused insulin to cover tube feeding carbs at this time Will continue to monitor.
[2018-11-04 05:36] LABS: PREALBUMIN 18.4 MG/DL (19-36); VANCOMYCIN,RANDOM 12.9 UG/ML
--- NOTE | 2018-11-04 06:13 | NUR ---
Problems reprioritized. Patient report given, questions answered & plan of care reviewed with NORMAN Castro.
--- NOTE | 2018-11-04 06:28 | NUR ---
Patient in room [facility]. I have received report from Mahsa AUSTIN and had the opportunity to ask questions and assume patient care.
[2018-11-04 07:00] VITALS: BP 137/60
[2018-11-04] MEDS ORDERED: vancomycin/NS 1 GM ADD-VANTAGE 250 ML IV ONE (07:15)
[2018-11-04] MEDS: furosemide 40mg tablet PO SCH ×2 (07:55→19:50)
[2018-11-04] MEDS: multivitamins, therapeutics tablet PO SCH (07:55)
[2018-11-04] MEDS: aspirin 81mg tablet.DR PO SCH (07:55)
[2018-11-04] MEDS: lactobacillus rhamnosus 10,000 MMU CELLS/CAPSULE PO SCH ×2 (07:55→19:50)
[2018-11-04] MEDS: citalopram 20mg tablet PO SCH (07:55)
[2018-11-04] MEDS: amLODIPine 5mg tablet PO SCH (07:55)
[2018-11-04] MEDS: linezolid 600mg tablet PO SCH (07:55)
[2018-11-04] MEDS: losartan 25mg tablet PO SCH (07:55)
[2018-11-04] MEDS: docusate sodium 100mg/10ml UD cup PO SCH ×2 (07:55→19:51)
[2018-11-04] MEDS: insulin regular, human vial - multi-dose SQ SCH ×3 (09:37→20:09)
--- NOTE | 2018-11-04 10:23 | NUR ---
Pharmacist notified over the phone that Dr. Peralta wanted the Vancomycin dose to be given during hemodialysis days if necessary
[2018-11-04 12:00] VITALS: BP 129/63
--- NOTE | 2018-11-04 15:05 | NUR ---
Reassessment:Pt continues on Nepro Carb TF at receiving 50ml/hr and tolerating with gastric residuals of 5-180ml. Per MD note pt may need PEG, MD continues to discuss care plan with family. LBM 11/03. Will continue to monitor. Recommendations: 1) Advance diet as medically indicated back to pureed renal diet with honey thick liquids 2) Continue bowel care as needed 3) Continuous NG tube feedings using Nepro Carb steady at 50 ml/hr will provide total volume 1200 ml, 2160 cals, 97 gm protein, 872 ml water. 4) Prealbumin q 5) Daily weights Addendum: 11/04/18 at [address] Amended: Links added. Addendum: 11/04/18 at [address] I have reviewed and agree with note by Service Station Attendant. Chantal Arellano RD
[2018-11-04 18:00] VITALS: BP 144/71
--- NOTE | 2018-11-04 18:40 | NUR ---
Received report from primary care nurse Matthew AUSTIN. Assumed patient care. Patient is awake and alert on room air watching television. Call light and items of frequent use within reach. Will continue to monitor for changes.
--- NOTE | 2018-11-04 18:43 | NUR ---
Problems reprioritized. Patient report given, questions answered & plan of care reviewed with Angeli AUSTIN.
[2018-11-04] MEDS: diphenhydrAMINE 25 MG/10 ML UD oral solution NG SCH (19:50)
[2018-11-04] MEDS: atorvastatin 20mg tablet PO SCH (19:50)
[2018-11-04] MEDS: insulin glargine (Lantus) pen - multi-dose SQ SCH (21:30)
[2018-11-04 23:57] VITALS: BP 127/70
[2018-11-05] MEDS: HYDROcodone/acetaminophen 10/325mg tab PO PRN (00:03)
[2018-11-05] MEDS: VANCOMYCIN LEVEL IV SCH (03:00)
[2018-11-05] MEDS ORDERED: vancomycin/NS 1 GM ADD-VANTAGE 250 ML IV ONE (06:00)
--- NOTE | 2018-11-05 06:20 | NUR ---
Patient in room [facility]. I have received report from NORMAN Suh and had the opportunity to ask questions and assume patient care.
[2018-11-05 06:22] LABS: VANCOMYCIN,RANDOM 11.4 UG/ML
--- NOTE | 2018-11-05 06:46 | NUR ---
Reported off to Pamela RN. Patient is resting with relaxed and unlabored respirations on room air. Call light and items of frequent use within reach.
[2018-11-05 07:11] VITALS: BP 136/71
[2018-11-05] MEDS: losartan 25mg tablet PO SCH (07:54)
[2018-11-05] MEDS: docusate sodium 100mg/10ml UD cup PO SCH ×2 (07:54→20:00)
[2018-11-05] MEDS: citalopram 20mg tablet PO SCH (07:54)
[2018-11-05] MEDS: lactobacillus rhamnosus 10,000 MMU CELLS/CAPSULE PO SCH ×2 (07:54→20:00)
[2018-11-05] MEDS: amLODIPine 5mg tablet PO SCH (07:55)
[2018-11-05] MEDS: multivitamins, therapeutics tablet PO SCH (07:55)
[2018-11-05] MEDS: aspirin 81mg tablet.DR PO SCH (07:55)
[2018-11-05] MEDS: furosemide 40mg tablet PO SCH ×2 (07:55→20:00)
[2018-11-05] MEDS ORDERED: heparin 1,000unit/ml 10ml vial 10 ML IV ONE (08:52)
[2018-11-05] MEDS ORDERED: normal saline 1000ml 250 ML IV PRN (08:52)
[2018-11-05] MEDS ORDERED: epoetin 20,000 units/ml inj IV ONE (08:55)
[2018-11-05] MEDS ORDERED: heparin 1,000 units/ml 10ml inj HE ONE ×2 (09:00)
[2018-11-05 09:45] LABS: ALANINE AMINOTRANSFERASE 24 U/L (12-78); ALBUMIN 1.9 G/DL (3.4-5.0); ALBUMIN/GLOBULIN RATIO 0.6 (1.1-1.5); ALKALINE PHOSPHATASE 106 IU/L (46-116); ANION GAP 11 (8-16); ASPARTATE AMINO TRANSFERASE 22 U/L (10-37); BILIRUBIN,TOTAL 0.3 MG/DL (0.1-1.0); BLOOD UREA NITROGEN 62 MG/DL (7-18); BUN/CREATININE RATIO 16.2 (5.4-32.0); CALCIUM 8.2 MG/DL (8.5-10.1); CHLORIDE 100 MMOL/L (99-107); CREATININE 3.82 MG/DL (0.60-1.10); GLUCOSE 124 MG/DL (70-104); POTASSIUM 3.9 MMOL/L (3.5-5.1); SODIUM 139 MMOL/L (135-145); TOTAL CARBON DIOXIDE 28.3 MMOL/L (24-32); TOTAL PROTEIN 5.3 G/DL (6.4-8.2); eGFR 16 ML/MIN
[2018-11-05 10:00] LABS: BASOPHILS % (AUTO) 0.4 % (0-1); EOSINOPHILS # (AUTO) 0.4 X10'3 (0-0.9); EOSINOPHILS % (AUTO) 4.4 % (0-6); HEMATOCRIT 23.5 % (42.0-52.0); HEMOGLOBIN 7.7 g/dl (14.0-17.9); LYMPHOCYTES % (AUTO) 10.4 % (21-51); MEAN CORPUSCULAR HEMOGLOBIN 27.7 PG (27.0-31.0); MEAN CORPUSCULAR HGB CONC 32.7 g/dL (33.0-36.5); MEAN CORPUSCULAR VOLUME 84.7 FL (78-98); MEAN PLATELET VOLUME 10.2 FL (7.4-10.4); MONOCYTES # (AUTO) 0.6 X10'3 (0-0.9); NEUTROPHILS # (AUTO) 7.7 X10'3 (1.8-7.7); NEUTROPHILS % (AUTO) 78.8 % (42-75); PLATELET COUNT 152 X10'3 (140-440); RED BLOOD COUNT 2.78 X10'6 (4.70-6.10); RED CELL DISTRIBUTION WIDTH 19.3 % (11.5-14.5); WHITE BLOOD COUNT 9.8 X10'3 (4.5-11.0)
[2018-11-05 11:48] VITALS: BP 110/60
--- NOTE | 2018-11-05 18:15 | NUR ---
Problems reprioritized. Patient report given, questions answered & plan of care reviewed with NORMAN Egan.
--- NOTE | 2018-11-05 18:20 | NUR ---
Patient in room [facility]. I have received report from Pamela Aguirre and had the opportunity to ask questions and assume patient care. Addendum: 11/05/18 at 1857 by Julisa Diaz RN Amended: Links added.
[2018-11-05 18:30] VITALS: BP 148/70
--- NOTE | 2018-11-05 19:38 | NUR ---
pt had pulled Ng tube out last night and pt refused Ng tube to be replaced. Dr Peralta notified on dayshift. failed swallow study that was ordered meds and accuchecks not addressed. called September SEATING AND MOBILITY TECHNOLOGIST and notified her of this. will continue blood sugars, will not give meds aware he has no Iv and had dialysis today.
--- NOTE | 2018-11-05 20:15 | NUR ---
bladder scan 166cc in there said did not need to void.
[2018-11-05] MEDS: insulin glargine (Lantus) pen - multi-dose SQ SCH (21:00)
[2018-11-05] MEDS: atorvastatin 20mg tablet PO SCH (21:00)
[2018-11-05] MEDS: diphenhydrAMINE 25 MG/10 ML UD oral solution NG SCH (21:00)
--- NOTE | 2018-11-05 21:00 | NUR ---
pt appears comfortable still does not want an NG tube put back in. talked to pt regarding his need for tube feedings and why and talked to him about what he wants for options ng?, peg tube or no feeding and hospice? pt said he can't answer yet!
--- NOTE | 2018-11-05 23:00 | NUR ---
pt positioned to comfort.
[2018-11-06] VITALS: BP 155/75
--- NOTE | 2018-11-06 01:00 | NUR ---
resting eyes closed without changes or s&s of distress at this time.
--- NOTE | 2018-11-06 02:00 | NUR ---
blood sugar done denies pain. turned to his right side.
--- NOTE | 2018-11-06 04:00 | NUR ---
resting without changes.
[2018-11-06] MEDS ORDERED: glucagon, human recombinant 1mg kit SUBCUT PRN (05:35)
[2018-11-06] MEDS: VANCOMYCIN LEVEL IV SCH (06:30)
--- NOTE | 2018-11-06 06:33 | NUR ---
Problems reprioritized. Patient report given, questions answered & plan of care reviewed with Pia Aguirre. Addendum: 11/06/18 at 0633 by Julisa Diaz RN Amended: Links added.
[2018-11-06 07:00] VITALS: BP 155/70
[2018-11-06] MEDS: multivitamins, therapeutics tablet PO SCH (08:00)
[2018-11-06] MEDS: aspirin 81mg tablet.DR PO SCH (08:00)
[2018-11-06] MEDS: docusate sodium 100mg/10ml UD cup PO SCH ×2 (08:00→20:00)
[2018-11-06] MEDS: lactobacillus rhamnosus 10,000 MMU CELLS/CAPSULE PO SCH ×2 (08:00→20:00)
[2018-11-06] MEDS: citalopram 20mg tablet PO SCH (08:00)
[2018-11-06] MEDS: amLODIPine 5mg tablet PO SCH (08:00)
[2018-11-06] MEDS: furosemide 40mg tablet PO SCH ×2 (08:00→20:00)
[2018-11-06] MEDS: losartan 25mg tablet PO SCH (08:00)
--- NOTE | 2018-11-06 08:00 | NUR ---
Patient refused MRI this morning and said that he would rather have it done out patient when he has his follow up CT scan in November. Dr. Bloom notified and said okay to cancel MRI at this time.
[2018-11-06 11:00] VITALS: BP 132/71
--- NOTE | 2018-11-06 16:00 | NUR ---
Spoke with patient and his family regarding pt plan of care. The patients POA was present as well as his grandson who would be his 24 hour child care cook should patient get to go home. The case hardener at this time came in and talked to the patient and the family. What was discussed was that the patient in order to keep dialysis sites available is no longer recommended to receive IV's, and patient has had 2 consecutive swallow evaluations and was deemed unsafe to swallow food or liquids without risking the chance of aspiration. Patient approximally 2 days before had pulled out his nasal feeding tube and does not wish for it to be put back in. So from time he pulled it out to now patient was not receiving medication or nutrition. group manager, Ticket Counter, and myself all consulted with the patient and family regarding where to go from here. The family and patient were educated on the risks of aspiration and the risks of placing a PEG feeding tube. Once educated the family has chosen to allow the patient to eat and drink despite the risking of aspiration, which could lead to infection or . Patients diet is not changed to allow patient to try and nurish self for quality of life. patient was able to tolerate the first few bites and sips given. No sign of aspiration present at this time. Will continue to communicate with patient, family, and Ticket Counter to provide the best care and quality of life for patient. Patient was also able to walk a few steps with physical therapy today.
--- NOTE | 2018-11-06 18:30 | NUR ---
Patient in room [facility]. I have received report from PAULA AUSTIN and had the opportunity to ask questions and assume patient care.
[2018-11-06 20:00] VITALS: BP 153/83
[2018-11-06] MEDS: atorvastatin 20mg tablet PO SCH (21:00)
[2018-11-06] MEDS: insulin glargine (Lantus) pen - multi-dose SQ SCH (21:00)
[2018-11-06] MEDS: diphenhydrAMINE 25 MG/10 ML UD oral solution NG SCH (21:00)
[2018-11-07] VITALS: BP 159/81
[2018-11-07] MEDS: VANCOMYCIN LEVEL IV SCH (03:00)
--- NOTE | 2018-11-07 06:17 | NUR ---
Problems reprioritized. Patient report given, questions answered & plan of care reviewed with PAULA AUSTIN.
[2018-11-07 07:00] VITALS: BP 166/93
[2018-11-07] MEDS: docusate sodium 100mg/10ml UD cup PO SCH ×2 (08:00→20:00)
[2018-11-07] MEDS: losartan 25mg tablet PO SCH (08:00)
[2018-11-07] MEDS: citalopram 20mg tablet PO SCH (10:07)
[2018-11-07] MEDS: amLODIPine 5mg tablet PO SCH (10:08)
[2018-11-07] MEDS: multivitamins, therapeutics tablet PO SCH (10:08)
[2018-11-07] MEDS: furosemide 40mg tablet PO SCH ×2 (10:09→20:37)
[2018-11-07] MEDS: HYDROcodone/acetaminophen 10/325mg tab PO PRN (10:09)
[2018-11-07] MEDS: lactobacillus rhamnosus 10,000 MMU CELLS/CAPSULE PO SCH ×2 (10:10→20:37)
[2018-11-07] MEDS: aspirin 81mg tablet.DR PO SCH (10:10)
--- NOTE | 2018-11-07 10:30 | NUR ---
Sat patient up as far as bed would allow and instructed patient to tuck his chin every time he took a bite. Was able with no obvious aspiration able to eat his medications crushed up in applesauce. Patient mood seems to be elevating with this accomplishment.
[2018-11-07 12:00] VITALS: BP 139/77
--- NOTE | 2018-11-07 15:56 | NUR ---
Reassessment: Pt tolerating NG feeds at goal. Copious large BM today per RN following 4 days of constipation. Pt declined comfort care per MD note on HD. Advanced to pureed/renal/honey thick diet since family/POA want pt to have PO meals. RD d/w RN given should make him NPO given WASHERY ENGINEER recs and family can bring in food from outside. Pt still mostly refusing all PO w/ 0% meals. Will monitor for WASHERY ENGINEER recs in AM; pt may benefit from PEG for long-term nutrition needs if to remain DNR. Recommendations: 1) Advance diet per WASHERY ENGINEER to pureed renal diet with honey thick liquids 2) Continue bowel care as needed 3) Continuous NG tube feedings using Nepro Carb steady at 50 ml/hr will provide total volume 1200 ml, 2160 cals, 97 gm protein, 872 ml water. 4) Prealbumin q M/, daily wts 5) Consider PEG for long-term nutrition needs 6) Monitor for family ed if continuing to force PO w/ aspiration risk Addendum: 11/07/18 at [address] Amended: Links added.
[2018-11-07] MEDS ORDERED: dextrose ORAL solution 15 GM/59 ML bottle PO PRN ×2 (17:35)
[2018-11-07] MEDS ORDERED: dextrose 50%-water 50ml dispensing syringe IV PRN ×2 (17:35)
[2018-11-07] MEDS ORDERED: MESSAGE TO PHARMACY PO ONE (17:35)
[2018-11-07] MEDS ORDERED: insulin Lispro (HumaLOG) vial - multi-dose SQ SCH (17:35)
[2018-11-07] MEDS ORDERED: glucagon, human recombinant 1mg kit SUBCUT PRN (17:35)
[2018-11-07 20:00] VITALS: BP 124/60
[2018-11-07] MEDS: atorvastatin 20mg tablet PO SCH (20:37)
[2018-11-07] MEDS: diphenhydrAMINE 25 MG/10 ML UD oral solution NG SCH (20:37)
[2018-11-07] MEDS: insulin glargine (Lantus) pen - multi-dose SQ SCH (20:39)
--- NOTE | 2018-11-07 22:10 | NUR ---
Patient in room [facility]. I have received report from NORMAN Palacio and had the opportunity to ask questions and assume patient care. Addendum: 11/07/18 at 2218 by Leda Campoverde RN Amended: Links added.
[2018-11-07 23:55] VITALS: BP 145/66
[2018-11-08] MEDS: VANCOMYCIN LEVEL IV SCH (01:20)
[2018-11-08 05:45] LABS: ALANINE AMINOTRANSFERASE 20 U/L (12-78); ALBUMIN 2.1 G/DL (3.4-5.0); ALBUMIN/GLOBULIN RATIO 0.6 (1.1-1.5); ALKALINE PHOSPHATASE 102 IU/L (46-116); ANION GAP 6 (8-16); ASPARTATE AMINO TRANSFERASE 15 U/L (10-37); BILIRUBIN,TOTAL 0.4 MG/DL (0.1-1.0); BLOOD UREA NITROGEN 56 MG/DL (7-18); BUN/CREATININE RATIO 13.1 (5.4-32.0); CALCIUM 8.3 MG/DL (8.5-10.1); CHLORIDE 101 MMOL/L (99-107); CREATININE 4.27 MG/DL (0.60-1.10); POTASSIUM 4.2 MMOL/L (3.5-5.1); PREALBUMIN 19.3 MG/DL (19-36); SODIUM 136 MMOL/L (135-145); TOTAL CARBON DIOXIDE 28.7 MMOL/L (24-32); TOTAL PROTEIN 5.9 G/DL (6.4-8.2); VANCOMYCIN,RANDOM 17.5 UG/ML; eGFR 14 ML/MIN
[2018-11-08 05:49] LABS: GLUCOSE 42 MG/DL (70-104)
--- NOTE | 2018-11-08 05:57 | NUR ---
notified dr. flores of oral glucose given for bs 42. Addendum: 11/08/18 at 0557 by Leda Campoverde RN Amended: Links added.
--- NOTE | 2018-11-08 06:20 | NUR ---
Problems reprioritized. Patient report given, questions answered & plan of care reviewed with NORMAN Hector. Addendum: 11/08/18 at 0621 by Leda Campoverde RN Amended: Links added.
--- NOTE | 2018-11-08 06:35 | NUR ---
Patient in room [facility]. I have received report from CHRISTIANNE AUSTIN and had the opportunity to ask questions and assume patient care.
[2018-11-08] MEDS: docusate sodium 100mg/10ml UD cup PO SCH ×2 (06:55→08:01)
[2018-11-08 07:00] VITALS: BP 132/70
[2018-11-08 07:11] VITALS: BP 132/70
[2018-11-08] MEDS: amLODIPine 5mg tablet PO SCH (07:53)
[2018-11-08] MEDS: furosemide 40mg tablet PO SCH ×2 (07:53→20:23)
[2018-11-08] MEDS: multivitamins, therapeutics tablet PO SCH (07:55)
[2018-11-08] MEDS: citalopram 20mg tablet PO SCH (07:55)
[2018-11-08] MEDS: losartan 25mg tablet PO SCH (07:55)
[2018-11-08] MEDS: HYDROcodone/acetaminophen 10/325mg tab PO PRN ×2 (07:59→23:27)
[2018-11-08] MEDS ORDERED: epoetin 20,000 units/ml inj IV ONE (08:00)
[2018-11-08] MEDS ORDERED: normal saline 1000ml 250 ML IV PRN (08:00)
[2018-11-08] MEDS ORDERED: heparin 1,000unit/ml 10ml vial 10 ML IV ONE (08:00)
[2018-11-08] MEDS: aspirin 81mg tablet.DR PO SCH (08:04)
[2018-11-08] MEDS: lactobacillus rhamnosus 10,000 MMU CELLS/CAPSULE PO SCH ×2 (08:04→20:23)
[2018-11-08] MEDS ORDERED: heparin 1,000 units/ml 10ml inj HE ONE ×2 (08:05)
[2018-11-08 09:13] LABS: ALBUMIN 2.1 G/DL (3.4-5.0); ANION GAP 11 (8-16); BLOOD UREA NITROGEN 54 MG/DL (7-18); BUN/CREATININE RATIO 12.7 (5.4-32.0); CALCIUM 8.3 MG/DL (8.5-10.1); CHLORIDE 100 MMOL/L (99-107); CREATININE 4.26 MG/DL (0.60-1.10); GLUCOSE 126 MG/DL (70-104); POTASSIUM 4.1 MMOL/L (3.5-5.1); SODIUM 139 MMOL/L (135-145); TOTAL CARBON DIOXIDE 27.7 MMOL/L (24-32); eGFR 14 ML/MIN
[2018-11-08 09:23] LABS: BASOPHILS % (AUTO) 0.4 % (0-1); EOSINOPHILS # (AUTO) 0.3 X10'3 (0-0.9); EOSINOPHILS % (AUTO) 2.7 % (0-6); HEMATOCRIT 26.1 % (42.0-52.0); HEMOGLOBIN 8.6 g/dl (14.0-17.9); LYMPHOCYTES % (AUTO) 10.1 % (21-51); MEAN CORPUSCULAR HGB CONC 32.7 g/dL (33.0-36.5); MEAN CORPUSCULAR VOLUME 85.6 FL (78-98); MEAN PLATELET VOLUME 8.6 FL (7.4-10.4); MONOCYTES # (AUTO) 0.6 X10'3 (0-0.9); NEUTROPHILS # (AUTO) 8.2 X10'3 (1.8-7.7); NEUTROPHILS % (AUTO) 80.8 % (42-75); PLATELET COUNT 246 X10'3 (140-440); RED BLOOD COUNT 3.05 X10'6 (4.70-6.10); RED CELL DISTRIBUTION WIDTH 23.9 % (11.5-14.5); WHITE BLOOD COUNT 10.1 X10'3 (4.5-11.0)
[2018-11-08 09:26] LABS: PLATELET ESTIMATE NORMAL; POLYCHROMASIA FEW
[2018-11-08 09:27] LABS: ANISOCYTOSIS 3+
[2018-11-08 09:28] LABS: ELLIPTOCYTES 1+; MICROCYTOSIS FEW
[2018-11-08 11:00] VITALS: BP 92/54
--- NOTE | 2018-11-08 18:23 | NUR ---
Problems reprioritized. Patient report given, questions answered & plan of care reviewed with CHRISTIANNE AUSTIN.
--- NOTE | 2018-11-08 19:41 | NUR ---
Patient in room [facility]. I have received report from NORMAN Hector and had the opportunity to ask questions and assume patient care. Addendum: 11/08/18 at 1944 by Leda Campoverde RN Amended: Links added.
[2018-11-08 20:00] VITALS: BP 117/53
[2018-11-08] MEDS: diphenhydrAMINE 25 MG/10 ML UD oral solution NG SCH (20:23)
[2018-11-08] MEDS: atorvastatin 20mg tablet PO SCH (20:23)
[2018-11-08] MEDS: insulin glargine (Lantus) pen - multi-dose SQ SCH (21:00)
[2018-11-09 00:28] VITALS: BP 119/60
[2018-11-09] MEDS: VANCOMYCIN LEVEL IV SCH (03:00)
[2018-11-09 06:00] VITALS: BP 134/80
--- NOTE | 2018-11-09 06:06 | NUR ---
Problems reprioritized. Patient report given, questions answered & plan of care reviewed with NORMAN Javier. Addendum: 11/09/18 at 0606 by Leda Campoverde RN Amended: Links added.
--- NOTE | 2018-11-09 06:21 | NUR ---
Patient in room [facility]. I have received report from Leda AUSTIN and had the opportunity to ask questions and assume patient care.
[2018-11-09 07:00] VITALS: BP 120/55
[2018-11-09] MEDS ORDERED: vancomycin/NS 1 GM ADD-VANTAGE 250 ML IV ONE (08:05)
[2018-11-09] MEDS: multivitamins, therapeutics tablet PO SCH (08:45)
[2018-11-09] MEDS: lactobacillus rhamnosus 10,000 MMU CELLS/CAPSULE PO SCH ×2 (08:45→20:28)
[2018-11-09] MEDS: citalopram 20mg tablet PO SCH (08:45)
[2018-11-09] MEDS: aspirin 81mg tablet.DR PO SCH (08:45)
[2018-11-09] MEDS: losartan 25mg tablet PO SCH (08:45)
[2018-11-09] MEDS: furosemide 40mg tablet PO SCH ×2 (08:46→20:28)
[2018-11-09] MEDS: docusate sodium 100mg/10ml UD cup PO SCH ×2 (08:46→19:23)
[2018-11-09] MEDS: amLODIPine 5mg tablet PO SCH (08:46)
[2018-11-09] MEDS: HYDROcodone/acetaminophen 10/325mg tab PO PRN (08:46)
--- NOTE | 2018-11-09 15:19 | NUR ---
patient is not having dialysis today vanc only given when pt having HD as its given through port by Dialysis nurse. Dialysis is M/W/F.
--- NOTE | 2018-11-09 18:25 | NUR ---
Problems reprioritized. Patient report given, questions answered & plan of care reviewed with CHRISTIANNE AUSTIN.
--- NOTE | 2018-11-09 19:40 | NUR ---
Patient in room [facility]. I have received report from NORMAN Javier and had the opportunity to ask questions and assume patient care. Addendum: 11/09/18 at 1941 by Leda Campoverde RN Amended: Links added.
[2018-11-09 20:00] VITALS: BP 123/66
[2018-11-09] MEDS: atorvastatin 20mg tablet PO SCH (20:28)
[2018-11-09] MEDS: diphenhydrAMINE 25 MG/10 ML UD oral solution NG SCH (20:28)
[2018-11-09] MEDS: insulin glargine (Lantus) pen - multi-dose SQ SCH (20:33)
[2018-11-10] VITALS: BP 152/83
[2018-11-10] MEDS: VANCOMYCIN LEVEL IV SCH (03:00)
[2018-11-10] MEDS: docusate sodium 100mg/10ml UD cup PO SCH ×2 (07:20→20:23)
[2018-11-10] MEDS: aspirin 81mg tablet.DR PO SCH (07:20)
[2018-11-10] MEDS: multivitamins, therapeutics tablet PO SCH (07:20)
[2018-11-10] MEDS: citalopram 20mg tablet PO SCH (07:20)
[2018-11-10] MEDS: furosemide 40mg tablet PO SCH ×2 (07:20→20:23)
[2018-11-10] MEDS: losartan 25mg tablet PO SCH (07:20)
[2018-11-10] MEDS: lactobacillus rhamnosus 10,000 MMU CELLS/CAPSULE PO SCH ×2 (07:20→20:24)
[2018-11-10] MEDS: amLODIPine 5mg tablet PO SCH (07:21)
[2018-11-10 08:12] VITALS: BP 147/61
[2018-11-10 08:18] LABS: HBSAG SCREEN Negative (Negative); HEP B CORE AB, IGM Negative (Negative)
[2018-11-10] MEDS ORDERED: heparin 1,000unit/ml 10ml vial 10 ML IV ONE (09:05)
[2018-11-10] MEDS ORDERED: normal saline 1000ml 250 ML IV PRN (09:05)
[2018-11-10] MEDS ORDERED: heparin 1,000 units/ml 10ml inj HE ONE ×2 (09:10)
--- NOTE | 2018-11-10 09:20 | NUR ---
Problems reprioritized. Patient report given, questions answered & plan of care reviewed with NORMAN Diaz. Addendum: 11/10/18 at 0920 by Leda Campoverde RN Amended: Links added.
[2018-11-10 09:56] LABS: BASOPHILS # (AUTO) 0.1 X10'3 (0-0.2); BASOPHILS % (AUTO) 0.9 % (0-1); EOSINOPHILS # (AUTO) 0.3 X10'3 (0-0.9); EOSINOPHILS % (AUTO) 3.5 % (0-6); HEMATOCRIT 23.7 % (42.0-52.0); HEMOGLOBIN 7.7 g/dl (14.0-17.9); LYMPHOCYTES # (AUTO) 0.8 X10'3 (1.1-4.8); LYMPHOCYTES % (AUTO) 10.7 % (21-51); MEAN CORPUSCULAR HEMOGLOBIN 28.2 PG (27.0-31.0); MEAN CORPUSCULAR HGB CONC 32.6 g/dL (33.0-36.5); MEAN CORPUSCULAR VOLUME 86.7 FL (78-98); MEAN PLATELET VOLUME 8.7 FL (7.4-10.4); MONOCYTES # (AUTO) 0.4 X10'3 (0-0.9); MONOCYTES % (AUTO) 4.9 % (2-12); NEUTROPHILS # (AUTO) 5.8 X10'3 (1.8-7.7); PLATELET COUNT 232 X10'3 (140-440); RED BLOOD COUNT 2.73 X10'6 (4.70-6.10); RED CELL DISTRIBUTION WIDTH 25.5 % (11.5-14.5); WHITE BLOOD COUNT 7.2 X10'3 (4.5-11.0)
[2018-11-10] MEDS ORDERED: vancomycin/NS 1 GM ADD-VANTAGE 250 ML IV ONE (10:09)
[2018-11-10 10:11] LABS: ANION GAP 10 (8-16); BLOOD UREA NITROGEN 42 MG/DL (7-18); BUN/CREATININE RATIO 10.4 (5.4-32.0); CALCIUM 7.8 MG/DL (8.5-10.1); CHLORIDE 100 MMOL/L (99-107); CREATININE 4.05 MG/DL (0.60-1.10); GLUCOSE 177 MG/DL (70-104); PHOSPHORUS 4.8 MG/DL (2.3-4.5); POTASSIUM 4.2 MMOL/L (3.5-5.1); SODIUM 138 MMOL/L (135-145); eGFR 15 ML/MIN
[2018-11-10 10:16] LABS: ANISOCYTOSIS 3+; HYPOCHROMASIA 1+; PLATELET ESTIMATE NORMAL; POLYCHROMASIA 1+
[2018-11-10 10:17] LABS: ELLIPTOCYTES 1+; STOMATOCYTES 1+; TEAR DROP CELLS FEW
[2018-11-10] MEDS ORDERED: epoetin 20,000 units/ml inj IV ONE (10:19)
[2018-11-10 11:00] VITALS: BP 116/62
--- NOTE | 2018-11-10 11:25 | NUR ---
Calorie count consult: notes state he would like a calorie count x 5 days, consult has just been received, d/w dietary. Pt s/p BSS 11/10 with OCEAN EXPORT AGENT recs to continue pureed honey thick liquid diet d/t pt tolerating. Documented PO intake 75-100% likely meeting nutrient needs however will be able to further assess more accurate PO intake with calorie count. LBM 11/08. Will continue to follow. Recommendations: 1) Continue pureed renal CHO controlled diet with honey thick liquids per OCEAN EXPORT AGENT 2) Continue bowel care as needed 3) Wt per rx Addendum: 11/10/18 at [address] Amended: Links added.
--- NOTE | 2018-11-10 17:02 | NUR ---
Problems reprioritized. Patient report given, questions answered & plan of care reviewed with Mahsa. Addendum: 11/10/18 at 1703 by Emily Hartmann RN Amended: Links added.
[2018-11-10 19:00] VITALS: BP 133/66
[2018-11-10] MEDS: atorvastatin 20mg tablet PO SCH (20:23)
[2018-11-10] MEDS: diphenhydrAMINE 25 MG/10 ML UD oral solution NG SCH (20:23)
[2018-11-10] MEDS: insulin glargine (Lantus) pen - multi-dose SQ SCH (20:31)
[2018-11-11] VITALS: BP 136/68
[2018-11-11] MEDS: VANCOMYCIN LEVEL IV SCH (01:46)
--- NOTE | 2018-11-11 06:17 | NUR ---
Problems reprioritized. Patient report given, questions answered & plan of care reviewed with NORMAN Palacio.
[2018-11-11 08:00] VITALS: BP 143/71
[2018-11-11] MEDS: furosemide 40mg tablet PO SCH ×2 (10:19→22:15)
[2018-11-11] MEDS: aspirin 81mg tablet.DR PO SCH (10:19)
[2018-11-11] MEDS: citalopram 20mg tablet PO SCH (10:19)
[2018-11-11] MEDS: multivitamins, therapeutics tablet PO SCH (10:19)
[2018-11-11] MEDS: amLODIPine 5mg tablet PO SCH (10:19)
[2018-11-11] MEDS: lactobacillus rhamnosus 10,000 MMU CELLS/CAPSULE PO SCH ×2 (10:19→22:14)
[2018-11-11] MEDS: losartan 25mg tablet PO SCH (10:19)
[2018-11-11] MEDS: docusate sodium 100mg/10ml UD cup PO SCH ×2 (10:19→22:14)
[2018-11-11] MEDS ORDERED: epoetin 20,000 units/ml inj SQ STA (11:56)
[2018-11-11 12:00] VITALS: BP 133/64
--- NOTE | 2018-11-11 14:38 | NUR ---
Calorie count: Pt PO increased 75-100% meals past 2 days meeting needs. TJ d/w dry wall installer burak AM. [facility] 11/10. Addendum: 11/11/18 at [address] Amended: Links added.
[2018-11-11 18:00] VITALS: BP 151/89
--- NOTE | 2018-11-11 18:05 | NUR ---
Patient in room [facility]. I have received report from NORMAN Palacio and had the opportunity to ask questions and assume patient care.
[2018-11-11] MEDS: insulin glargine (Lantus) pen - multi-dose SQ SCH (21:00)
[2018-11-11] MEDS: diphenhydrAMINE 25 MG/10 ML UD oral solution NG SCH (22:14)
[2018-11-11] MEDS: atorvastatin 20mg tablet PO SCH (22:14)
[2018-11-12] VITALS: BP 142/75
[2018-11-12] MEDS: VANCOMYCIN LEVEL IV SCH (03:00)
--- NOTE | 2018-11-12 06:16 | NUR ---
Problems reprioritized. Patient report given, questions answered & plan of care reviewed with NORMAN Palacio.
[2018-11-12 07:18] VITALS: BP 142/72
[2018-11-12] MEDS: furosemide 40mg tablet PO SCH ×2 (08:00→20:54)
[2018-11-12] MEDS: losartan 25mg tablet PO SCH (08:00)
[2018-11-12] MEDS: docusate sodium 100mg/10ml UD cup PO SCH ×2 (08:00→20:54)
[2018-11-12] MEDS: amLODIPine 5mg tablet PO SCH (08:00)
[2018-11-12] MEDS ORDERED: heparin 1,000unit/ml 10ml vial 10 ML IV ONE (09:41)
[2018-11-12] MEDS ORDERED: normal saline 1000ml 250 ML IV PRN (09:41)
[2018-11-12] MEDS ORDERED: epoetin 20,000 units/ml inj IV ONE (09:45)
[2018-11-12] MEDS ORDERED: heparin 1,000 units/ml 10ml inj HE ONE ×2 (09:45)
[2018-11-12] MEDS: multivitamins, therapeutics tablet PO SCH (10:00)
[2018-11-12] MEDS: citalopram 20mg tablet PO SCH (10:33)
[2018-11-12] MEDS: aspirin 81mg tablet.DR PO SCH (10:33)
[2018-11-12] MEDS: lactobacillus rhamnosus 10,000 MMU CELLS/CAPSULE PO SCH ×2 (10:33→20:54)
[2018-11-12] MEDS: HYDROcodone/acetaminophen 10/325mg tab PO PRN ×2 (10:34→23:25)
[2018-11-12 10:53] LABS: HEMATOCRIT 26.2 % (42.0-52.0); HEMOGLOBIN 8.4 g/dl (14.0-17.9); MEAN CORPUSCULAR HEMOGLOBIN 28.6 PG (27.0-31.0); MEAN CORPUSCULAR HGB CONC 32.1 g/dL (33.0-36.5); MEAN CORPUSCULAR VOLUME 88.9 FL (78-98); MEAN PLATELET VOLUME 8.5 FL (7.4-10.4); PLATELET COUNT 219 X10'3 (140-440); RED BLOOD COUNT 2.95 X10'6 (4.70-6.10)
--- NOTE | 2018-11-12 11:35 | NUR ---
Calorie count 11/12: RD hasn't received calcount papers from the floors however documented that pt continues to eat 75-100% of meals meeting nutrient needs. LBM 11/12. Will continue to follow. Calorie count 11/11: Pt PO increased 75-100% meals past 2 days meeting needs. TJ d/w port drier this AM. LBM 11/10. Calorie count consult: notes state he would like a calorie count x 5 days, consult has just been received, d/w dietary. Pt s/p BSS 11/10 with POST CLOSING SPECIALIST recs to continue pureed honey thick liquid diet d/t pt tolerating. Documented PO intake 75-100% likely meeting nutrient needs however will be able to further assess more accurate PO intake with calorie count. LBM 11/08. Will continue to follow. Recommendations: 1) Continue pureed renal CHO controlled diet with honey thick liquids per POST CLOSING SPECIALIST 2) Continue bowel care as needed 3) Wt per rx Addendum: 11/12/18 at [address] Amended: Links added.
[2018-11-12 12:00] VITALS: BP 137/92
[2018-11-12 18:00] VITALS: BP 129/65
--- NOTE | 2018-11-12 18:30 | NUR ---
Patient in room [facility]. I have received report from NORMAN Palacio and had the opportunity to ask questions and assume patient care.
[2018-11-12] MEDS: diphenhydrAMINE 25 MG/10 ML UD oral solution NG SCH (20:53)
[2018-11-12] MEDS: atorvastatin 20mg tablet PO SCH (20:54)
[2018-11-12] MEDS: insulin glargine (Lantus) pen - multi-dose SQ SCH (21:00)
[2018-11-13 00:16] VITALS: BP 138/66
[2018-11-13] MEDS: VANCOMYCIN LEVEL IV SCH (03:00)
--- NOTE | 2018-11-13 06:56 | NUR ---
Problems reprioritized. Patient report given, questions answered & plan of care reviewed with NORMAN Javier.
[2018-11-13 07:00] VITALS: BP 140/72
--- NOTE | 2018-11-13 07:05 | NUR ---
Patient in room [facility]. I have received report from vito schwartz and had the opportunity to ask questions and assume patient care.
[2018-11-13] MEDS ORDERED: vancomycin/NS 1 GM ADD-VANTAGE 250 ML IV ONE (08:00)
[2018-11-13] MEDS: amLODIPine 5mg tablet PO SCH (08:44)
[2018-11-13] MEDS: citalopram 20mg tablet PO SCH (08:44)
[2018-11-13] MEDS: aspirin 81mg tablet.DR PO SCH (08:44)
[2018-11-13] MEDS: docusate sodium 100mg/10ml UD cup PO SCH ×2 (08:44→20:28)
[2018-11-13] MEDS: furosemide 40mg tablet PO SCH ×2 (08:44→20:29)
[2018-11-13] MEDS: losartan 25mg tablet PO SCH (08:44)
[2018-11-13] MEDS: lactobacillus rhamnosus 10,000 MMU CELLS/CAPSULE PO SCH ×2 (08:44→20:29)
[2018-11-13] MEDS: multivitamins, therapeutics tablet PO SCH (08:44)
[2018-11-13 12:00] VITALS: BP 105/60
--- NOTE | 2018-11-13 12:05 | NUR ---
Calorie count 11/13: Received calorie count papers for Friday 11/10-Sunday 11/12 with documented PO intake 100% all meals 11/10; 100% for breakfast and lunch and average 75% for dinner on 11/11; and 100% all meals 11/12. 100% intake all meals with patient's current diet order averages 2421 kcal/d and 107 g protein/d. Pt meeting nutrient needs with PO intake. Will continue to follow. Calorie count 11/12: RD hasn't received calcount papers from the floors however documented that pt continues to eat 75-100% of meals meeting nutrient needs. LBM 11/12. Will continue to follow. Calorie count 11/11: Pt PO increased 75-100% meals past 2 days meeting needs. TJ d/w chemical tank worker this AM. LBM 11/10. Calorie count consult: notes state he would like a calorie count x 5 days, consult has just been received, d/w dietary. Pt s/p BSS 11/10 with GAS PRODUCER recs to continue pureed honey thick liquid diet d/t pt tolerating. Documented PO intake 75-100% likely meeting nutrient needs however will be able to further assess more accurate PO intake with calorie count. LBM 11/08. Will continue to follow. Recommendations: 1) Continue pureed renal CHO controlled diet with honey thick liquids per GAS PRODUCER 2) Continue bowel care as needed 3) Wt per rx Addendum: 11/13/18 at [address] Amended: Links added.
[2018-11-13 18:00] VITALS: BP 127/68
--- NOTE | 2018-11-13 18:35 | NUR ---
Problems reprioritized. Patient report given, questions answered & plan of care reviewed with Monroe AUSTIN.
--- NOTE | 2018-11-13 18:36 | NUR ---
Patient in room [facility]. I have received report from NORMAN Javier and had the opportunity to ask questions and assume patient care.
[2018-11-13] MEDS: diphenhydrAMINE 25 MG/10 ML UD oral solution NG SCH (20:28)
[2018-11-13] MEDS: atorvastatin 20mg tablet PO SCH (20:29)
[2018-11-13] MEDS: acetaminophen 325mg tablet PO PRN (20:47)
[2018-11-13] MEDS: insulin glargine (Lantus) pen - multi-dose SQ SCH (21:00)
[2018-11-14] VITALS: BP 109/61
[2018-11-14] MEDS: VANCOMYCIN LEVEL IV SCH (03:00)
--- NOTE | 2018-11-14 06:26 | NUR ---
Problems reprioritized. Patient report given, questions answered & plan of care reviewed with NORMAN Javier.
--- NOTE | 2018-11-14 06:33 | NUR ---
Patient in room [facility] 352. I have received report from Monroe AUSTIN and had the opportunity to ask questions and assume patient care.
[2018-11-14 07:00] VITALS: BP 126/65
[2018-11-14] MEDS: docusate sodium 100mg/10ml UD cup PO SCH ×2 (07:52→20:37)
[2018-11-14] MEDS: citalopram 20mg tablet PO SCH (07:52)
[2018-11-14] MEDS: losartan 25mg tablet PO SCH (07:53)
[2018-11-14] MEDS: aspirin 81mg tablet.DR PO SCH (07:53)
[2018-11-14] MEDS: lactobacillus rhamnosus 10,000 MMU CELLS/CAPSULE PO SCH ×2 (07:53→20:37)
[2018-11-14] MEDS: multivitamins, therapeutics tablet PO SCH (07:53)
[2018-11-14] MEDS: furosemide 40mg tablet PO SCH ×2 (07:53→20:37)
[2018-11-14] MEDS: amLODIPine 5mg tablet PO SCH (07:53)
[2018-11-14] MEDS: acetaminophen 325mg tablet PO PRN (08:03)
[2018-11-14] MEDS ORDERED: vancomycin/NS 1 GM ADD-VANTAGE 250 ML IV ONE (10:58)
--- NOTE | 2018-11-14 11:45 | NUR ---
PATIENTS GRANDSON CALLED BUT NO ANSWER. pATIENTS SISTER AIDEN RETURNED CALL TO SAY THAT THEY STILL DO NOT HAVE POWER . SOON THEY DO THEY WILL CALL HOSPITAL TO LET STAFF KNOW THAT PATIENT CAN COME HOME.
[2018-11-14 11:51] VITALS: BP 116/58
--- NOTE | 2018-11-14 13:56 | NUR ---
Calorie Count 11/13 results: RD received kcal count information from RN and pt PO ~1640kcals and 73g protein meeting 100% nutrient needs w/ persistent 100% PO diet; actually lower kcal day compared to previous days still meeting needs. No nutrition concerns at this time. Kcal count has now ended. Will continue to monitor. Calorie count 11/13: Received calorie count papers for Friday 11/10-Sunday 11/12 with documented PO intake 100% all meals 11/10; 100% for breakfast and lunch and average 75% for dinner on 11/11; and 100% all meals 11/12. 100% intake all meals with patient's current diet order averages 2421 kcal/d and 107 g protein/d. Pt meeting nutrient needs with PO intake. Will continue to follow. Calorie count 11/12: RD hasn't received calcount papers from the floors however documented that pt continues to eat 75-100% of meals meeting nutrient needs. LBM 11/12. Will continue to follow. Calorie count 11/11: Pt PO increased 75-100% meals past 2 days meeting needs. TJ d/w corporate quality assurance manager this AM. LBM 11/10. Calorie count consult: notes state he would like a calorie count x 5 days, consult has just been received, d/w dietary. Pt s/p BSS 11/10 with STRING STUDIES DIRECTOR recs to continue pureed honey thick liquid diet d/t pt tolerating. Documented PO intake 75-100% likely meeting nutrient needs however will be able to further assess more accurate PO intake with calorie count. LBM 11/08. Will continue to follow. Recommendations: 1) Continue pureed renal CHO controlled diet with honey thick liquids per STRING STUDIES DIRECTOR 2) Continue bowel care as needed 3) Wt per rx Addendum: 11/14/18 at [address] Amended: Links added.
[2018-11-14 18:00] VITALS: BP 110/66
--- NOTE | 2018-11-14 18:30 | NUR ---
Patient in room [facility]. I have received report from Concepcion AUSTIN and had the opportunity to ask questions and assume patient care. Patient eating dinner, visitors at bedside.
--- NOTE | 2018-11-14 18:48 | NUR ---
Problems reprioritized. Patient report given, questions answered & plan of care reviewed with MARTÍN AUSTIN.
[2018-11-14] MEDS: insulin glargine (Lantus) pen - multi-dose SQ SCH (20:11)
[2018-11-14] MEDS: atorvastatin 20mg tablet PO SCH (20:37)
[2018-11-14] MEDS: diphenhydrAMINE 25 MG/10 ML UD oral solution NG SCH (20:37)
[2018-11-15] VITALS: BP 144/81
[2018-11-15] MEDS: VANCOMYCIN LEVEL IV SCH (03:00)
--- NOTE | 2018-11-15 06:33 | NUR ---
Problems reprioritized. Patient report given, questions answered & plan of care reviewed with Belia AUSTIN.
[2018-11-15 07:25] VITALS: BP 131/68
[2018-11-15] MEDS: aspirin 81mg tablet.DR PO SCH (07:31)
[2018-11-15] MEDS: furosemide 40mg tablet PO SCH ×2 (07:31→20:44)
[2018-11-15] MEDS: amLODIPine 5mg tablet PO SCH (07:31)
[2018-11-15] MEDS: multivitamins, therapeutics tablet PO SCH (07:31)
[2018-11-15] MEDS: losartan 25mg tablet PO SCH (07:31)
[2018-11-15] MEDS: lactobacillus rhamnosus 10,000 MMU CELLS/CAPSULE PO SCH ×2 (07:31→20:44)
[2018-11-15] MEDS: citalopram 20mg tablet PO SCH (07:31)
[2018-11-15] MEDS: docusate sodium 100mg/10ml UD cup PO SCH ×2 (07:32→20:44)
[2018-11-15] MEDS ORDERED: vancomycin/NS 1 GM ADD-VANTAGE 250 ML IV PRN (07:43)
[2018-11-15] MEDS ORDERED: normal saline 1000ml 250 ML IV PRN (08:00)
[2018-11-15] MEDS ORDERED: heparin 1,000 units/ml 10ml inj HE ONE ×2 (08:00)
[2018-11-15] MEDS ORDERED: epoetin 20,000 units/ml inj IV ONE (08:00)
[2018-11-15] MEDS ORDERED: heparin 1,000unit/ml 10ml vial 10 ML IV ONE (08:00)
[2018-11-15] MEDS ORDERED: vancomycin/NS 1 GM ADD-VANTAGE 250 ML IV ONE (10:00)
[2018-11-15 11:00] VITALS: BP 108/58
[2018-11-15 14:38] LABS: BASOPHILS % (AUTO) 0.7 % (0-1); EOSINOPHILS # (AUTO) 0.2 X10'3 (0-0.9); EOSINOPHILS % (AUTO) 2.9 % (0-6); HEMATOCRIT 27.4 % (42.0-52.0); LYMPHOCYTES # (AUTO) 0.8 X10'3 (1.1-4.8); LYMPHOCYTES % (AUTO) 11.7 % (21-51); MEAN CORPUSCULAR HEMOGLOBIN 29.6 PG (27.0-31.0); MEAN CORPUSCULAR HGB CONC 32.8 g/dL (33.0-36.5); MEAN CORPUSCULAR VOLUME 90.4 FL (78-98); MEAN PLATELET VOLUME 10.3 FL (7.4-10.4); MONOCYTES # (AUTO) 0.4 X10'3 (0-0.9); MONOCYTES % (AUTO) 6.2 % (2-12); NEUTROPHILS # (AUTO) 5.4 X10'3 (1.8-7.7); NEUTROPHILS % (AUTO) 78.5 % (42-75); PLATELET COUNT 259 X10'3 (140-440); RED BLOOD COUNT 3.03 X10'6 (4.70-6.10); RED CELL DISTRIBUTION WIDTH 23.7 % (11.5-14.5); WHITE BLOOD COUNT 6.8 X10'3 (4.5-11.0)
--- NOTE | 2018-11-15 18:04 | NUR ---
Problems reprioritized. Patient report given, questions answered & plan of care reviewed with NORMAN Tamez.
--- NOTE | 2018-11-15 19:20 | NUR ---
Patient in room [facility]. I have received report from Belia AUSTIN and had the opportunity to ask questions and assume patient care.
[2018-11-15 20:00] VITALS: BP 136/73
[2018-11-15] MEDS: insulin glargine (Lantus) pen - multi-dose SQ SCH (20:26)
[2018-11-15] MEDS: diphenhydrAMINE 25 MG/10 ML UD oral solution NG SCH (20:44)
[2018-11-15] MEDS: atorvastatin 20mg tablet PO SCH (20:44)
[2018-11-16] VITALS: BP 137/63
--- NOTE | 2018-11-16 06:34 | NUR ---
Problems reprioritized. Patient report given, questions answered & plan of care reviewed with Belia AUSTIN. Pt laying on his left side. He asked for assistance pulling the bottom portion of the tray table out to get ready for breakfast. No signs of distress.
[2018-11-16 07:45] VITALS: BP 146/73
[2018-11-16] MEDS: furosemide 40mg tablet PO SCH ×2 (08:06→21:04)
[2018-11-16] MEDS: multivitamins, therapeutics tablet PO SCH (08:06)
[2018-11-16] MEDS: lactobacillus rhamnosus 10,000 MMU CELLS/CAPSULE PO SCH ×2 (08:06→21:05)
[2018-11-16] MEDS: docusate sodium 100mg/10ml UD cup PO SCH ×2 (08:07→21:05)
[2018-11-16] MEDS: aspirin 81mg tablet.DR PO SCH (08:07)
[2018-11-16] MEDS: amLODIPine 5mg tablet PO SCH (08:07)
[2018-11-16] MEDS: losartan 25mg tablet PO SCH (08:07)
[2018-11-16] MEDS: citalopram 20mg tablet PO SCH (08:07)
[2018-11-16 11:30] VITALS: BP 124/51
--- NOTE | 2018-11-16 18:40 | NUR ---
Problems reprioritized. Patient report given, questions answered & plan of care reviewed with NORMAN Tamez.
--- NOTE | 2018-11-16 18:49 | NUR ---
Patient in room [facility]. I have received report from Belia AUSTIN and had the opportunity to ask questions and assume patient care. Pt had just finished dinner and was watching tv. No signs of distress, will continue to monitor.
[2018-11-16] MEDS: insulin glargine (Lantus) pen - multi-dose SQ SCH (18:53)
[2018-11-16 20:00] VITALS: BP 118/60
[2018-11-16] MEDS: atorvastatin 20mg tablet PO SCH (21:05)
[2018-11-16] MEDS: diphenhydrAMINE 25 MG/10 ML UD oral solution NG SCH (21:05)
[2018-11-16] MEDS: acetaminophen 325mg tablet PO PRN (23:28)
[2018-11-17 00:39] VITALS: BP 146/67
[2018-11-17 05:48] LABS: ALBUMIN 2.2 G/DL (3.4-5.0); ANION GAP 11 (8-16); BLOOD UREA NITROGEN 39 MG/DL (7-18); BUN/CREATININE RATIO 12.1 (5.4-32.0); CALCIUM 8.1 MG/DL (8.5-10.1); CHLORIDE 100 MMOL/L (99-107); CREATININE 3.21 MG/DL (0.60-1.10); GLUCOSE 80 MG/DL (70-104); POTASSIUM 3.9 MMOL/L (3.5-5.1); SODIUM 138 MMOL/L (135-145); TOTAL CARBON DIOXIDE 27.1 MMOL/L (24-32); eGFR 19 ML/MIN
--- NOTE | 2018-11-17 06:30 | NUR ---
Patient in room [facility]. I have received report from Geraldine and had the opportunity to ask questions and assume patient care.
--- NOTE | 2018-11-17 06:44 | NUR ---
Problems reprioritized. Patient report given, questions answered & plan of care reviewed with Geraldine AUSTIN. Pt was asleep on his left side with the tv on. No signs of distress noted.
[2018-11-17 07:27] LABS: BASOPHILS # (AUTO) 0.1 X10'3 (0-0.2); BASOPHILS % (AUTO) 1.5 % (0-1); EOSINOPHILS # (AUTO) 0.3 X10'3 (0-0.9); EOSINOPHILS % (AUTO) 5.9 % (0-6); HEMATOCRIT 27.8 % (42.0-52.0); LYMPHOCYTES # (AUTO) 0.9 X10'3 (1.1-4.8); LYMPHOCYTES % (AUTO) 16.6 % (21-51); MEAN CORPUSCULAR HGB CONC 32.5 g/dL (33.0-36.5); MEAN CORPUSCULAR VOLUME 89.4 FL (78-98); MEAN PLATELET VOLUME 9.7 FL (7.4-10.4); MONOCYTES # (AUTO) 0.6 X10'3 (0-0.9); MONOCYTES % (AUTO) 10.6 % (2-12); NEUTROPHILS # (AUTO) 3.5 X10'3 (1.8-7.7); NEUTROPHILS % (AUTO) 65.4 % (42-75); PLATELET COUNT 186 X10'3 (140-440); RED BLOOD COUNT 3.11 X10'6 (4.70-6.10); RED CELL DISTRIBUTION WIDTH 24.8 % (11.5-14.5); WHITE BLOOD COUNT 5.3 X10'3 (4.5-11.0)
[2018-11-17 07:39] VITALS: BP 140/77
[2018-11-17 07:56] LABS: ANISOCYTOSIS 3+; PLATELET ESTIMATE NORMAL
[2018-11-17 07:57] LABS: POLYCHROMASIA FEW
[2018-11-17] MEDS: citalopram 20mg tablet PO SCH (08:00)
[2018-11-17] MEDS: furosemide 40mg tablet PO SCH ×2 (08:00→21:08)
[2018-11-17] MEDS: aspirin 81mg tablet.DR PO SCH (08:00)
[2018-11-17] MEDS ORDERED: heparin 1,000unit/ml 10ml vial 10 ML IV ONE (08:00)
[2018-11-17] MEDS: docusate sodium 100mg/10ml UD cup PO SCH ×2 (08:00→21:07)
[2018-11-17] MEDS ORDERED: normal saline 1000ml 250 ML IV PRN (08:00)
[2018-11-17] MEDS: lactobacillus rhamnosus 10,000 MMU CELLS/CAPSULE PO SCH ×2 (08:00→21:08)
[2018-11-17] MEDS ORDERED: epoetin 20,000 units/ml inj IV ONE (08:00)
[2018-11-17] MEDS ORDERED: heparin 1,000 units/ml 10ml inj HE ONE ×2 (08:00)
[2018-11-17] MEDS: losartan 25mg tablet PO SCH (08:00)
[2018-11-17] MEDS: multivitamins, therapeutics tablet PO SCH (08:00)
[2018-11-17] MEDS: amLODIPine 5mg tablet PO SCH (08:00)
[2018-11-17 10:56] VITALS: BP 98/67
--- NOTE | 2018-11-17 11:59 | NUR ---
Problems reprioritized. Patient report given, susan Jhaveri questions answered & plan of care reviewed with .
[2018-11-17 18:00] VITALS: BP 132/64
--- NOTE | 2018-11-17 18:21 | NUR ---
Problems reprioritized. Patient report given, questions answered & plan of care reviewed with Monroe AUSTIN.
--- NOTE | 2018-11-17 18:22 | NUR ---
Patient in room [facility]. I have received report from NORMAN Chandler and had the opportunity to ask questions and assume patient care.
[2018-11-17] MEDS: insulin glargine (Lantus) pen - multi-dose SQ SCH (21:00)
[2018-11-17] MEDS: atorvastatin 20mg tablet PO SCH (21:07)
[2018-11-17] MEDS: diphenhydrAMINE 25 MG/10 ML UD oral solution NG SCH (21:07)
[2018-11-18] VITALS: BP 137/65
[2018-11-18] MEDS ORDERED: VANCOMYCIN LEVEL IV PRN (03:00)
--- NOTE | 2018-11-18 06:33 | NUR ---
Problems reprioritized. Patient report given, questions answered & plan of care reviewed with NORMAN Chandler.
[2018-11-18 06:51] VITALS: BP 121/84
[2018-11-18] MEDS: furosemide 40mg tablet PO SCH (07:50)
[2018-11-18] MEDS: amLODIPine 5mg tablet PO SCH (08:21)
[2018-11-18] MEDS: losartan 25mg tablet PO SCH (08:21)
[2018-11-18] MEDS: multivitamins, therapeutics tablet PO SCH (08:21)
[2018-11-18] MEDS: lactobacillus rhamnosus 10,000 MMU CELLS/CAPSULE PO SCH (08:22)
[2018-11-18] MEDS: citalopram 20mg tablet PO SCH (08:22)
[2018-11-18] MEDS: aspirin 81mg tablet.DR PO SCH (08:23)
[2018-11-18] MEDS: docusate sodium 100mg/10ml UD cup PO SCH (08:23)
--- NOTE | 2018-11-18 11:07 | NUR ---
D/C instructions given to grandson. verbalized understanding. Grandson stated he will make follow up apt. Pt escorted to lobby via w/c with all belongings with one staff.
[2018-11-19] MEDS ORDERED: VANCOMYCIN LEVEL IV SCH (03:00)
== END 2018-11-18 11:38 | disposition home health service (06) | DRG 314 ==
LOC: ER 10:47 → ED HOLD 11:49 → PCU 3S 16:31 → SUR 3N 10-20 03:15
PROVIDERS: ADMIT Internal Medicine Critical Care Medicine; ATTEND Internal Medicine Critical Care Medicine
PROC: 03PY33Z Removal of Infusion Device from Upper Artery, Percutaneous Approach (ICD-10-PCS; principal; 2018-10-12)
PROC: 0JPV3XZ Removal of Tunneled Vascular Access Device from Upper Extremity Subcutaneous Tissue and Fascia, Percutaneous Approach (ICD-10-PCS; 2018-10-12)
PROC: 05HM33Z Insertion of Infusion Device into Right Internal Jugular Vein, Percutaneous Approach (ICD-10-PCS; 2018-10-21)
PROC: B543ZZA Ultrasonography of Right Jugular Veins, Guidance (ICD-10-PCS; 2018-10-21)
PROC: B24BZZ4 Ultrasonography of Heart with Aorta, Transesophageal (ICD-10-PCS; 2018-10-21)
PROC: 5A1D70Z Performance of Urinary Filtration, Intermittent, Less than 6 Hours Per Day (ICD-10-PCS; 2018-10-21)
PROC: 5A1D70Z Performance of Urinary Filtration, Intermittent, Less than 6 Hours Per Day (ICD-10-PCS; 2018-10-23)
PROC: 5A1D70Z Performance of Urinary Filtration, Intermittent, Less than 6 Hours Per Day (ICD-10-PCS; 2018-10-25)
PROC: 5A1D70Z Performance of Urinary Filtration, Intermittent, Less than 6 Hours Per Day (ICD-10-PCS; 2018-10-27)
PROC: 02HV33Z Insertion of Infusion Device into Superior Vena Cava, Percutaneous Approach (ICD-10-PCS; 2018-10-29)
PROC: 0JH63XZ Insertion of Tunneled Vascular Access Device into Chest Subcutaneous Tissue and Fascia, Percutaneous Approach (ICD-10-PCS; 2018-10-29)
PROC: B518ZZA Fluoroscopy of Superior Vena Cava, Guidance (ICD-10-PCS; 2018-10-29)
PROC: B543ZZA Ultrasonography of Right Jugular Veins, Guidance (ICD-10-PCS; 2018-10-29)
PROC: 5A1D70Z Performance of Urinary Filtration, Intermittent, Less than 6 Hours Per Day (ICD-10-PCS; 2018-10-29)
PROC: 5A1D70Z Performance of Urinary Filtration, Intermittent, Less than 6 Hours Per Day (ICD-10-PCS; 2018-11-01)
PROC: 5A1D70Z Performance of Urinary Filtration, Intermittent, Less than 6 Hours Per Day (ICD-10-PCS; 2018-11-03)
PROC: 5A1D70Z Performance of Urinary Filtration, Intermittent, Less than 6 Hours Per Day (ICD-10-PCS; 2018-11-05)
PROC: 5A1D70Z Performance of Urinary Filtration, Intermittent, Less than 6 Hours Per Day (ICD-10-PCS; 2018-11-08)
PROC: 5A1D70Z Performance of Urinary Filtration, Intermittent, Less than 6 Hours Per Day (ICD-10-PCS; 2018-11-10)
PROC: 5A1D70Z Performance of Urinary Filtration, Intermittent, Less than 6 Hours Per Day (ICD-10-PCS; 2018-11-12)
PROC: 5A1D70Z Performance of Urinary Filtration, Intermittent, Less than 6 Hours Per Day (ICD-10-PCS; 2018-11-15)
PROC: 5A1D70Z Performance of Urinary Filtration, Intermittent, Less than 6 Hours Per Day (ICD-10-PCS; 2018-11-17)
DX: T80.211A Bloodstream infection due to central venous catheter, initial encounter (principal); A41.02 Sepsis due to Methicillin resistant Staphylococcus aureus; N18.6 End stage renal disease; E43 Unspecified severe protein-calorie malnutrition; N17.9 Acute kidney failure, unspecified; R64 Cachexia; Z68.1 Body mass index [BMI] 19.9 or less, adult; M48.56XA Collapsed vertebra, not elsewhere classified, lumbar region, initial encounter for fracture; E11.22 Type 2 diabetes mellitus with diabetic chronic kidney disease; F03.90 Unspecified dementia, unspecified severity, without behavioral disturbance, psychotic disturbance, mood disturbance, and anxiety; G47.30 Sleep apnea, unspecified; I25.10 Atherosclerotic heart disease of native coronary artery without angina pectoris; M19.90 Unspecified osteoarthritis, unspecified site; M25.78 Osteophyte, vertebrae; M54.9 Dorsalgia, unspecified; G89.29 Other chronic pain; F32.9 Major depressive disorder, single episode, unspecified; Y84.8 Other medical procedures as the cause of abnormal reaction of the patient, or of later complication, without mention of misadventure at the time of the procedure; Z98.61 Coronary angioplasty status; Z99.2 Dependence on renal dialysis; Z88.1 Allergy status to other antibiotic agents; Z79.82 Long term (current) use of aspirin; Z79.84 Long term (current) use of oral hypoglycemic drugs; Z79.899 Other long term (current) drug therapy; Z86.73 Personal history of transient ischemic attack (TIA), and cerebral infarction without residual deficits
CPT/HCPCS: 36415; 36556; 36558; 36589; 71045; 72141; 72146; 72148; 73200; 74018; 76937; 77001; 78806; 80048; 80053; 80069; 80202; 81001; 82272; 82948; 83605; 83735; 84100; 84134; 84145; 85025; 85027; 85610; 85730; 86705; 86706; 87040; 87070; 87077; 87088; 87186; 87340; 92616; 93005; 93306; 93312; 93325; 94640; 94760; 97110; 97112; 97116; 97162; 97530; 99285; A9270; A9570; C1750; C1751; C1894; G0257; G0378; J0780; J0885; J1644; J1815; J2001; J2250; J2270; J2310; J2405; J3010; J3370; J3490; J7030; P9045; Q0163

== ENCOUNTER 2018-12-08 16:24 | Inpatient (IN) | payer MEDICARE, MEDICAID | END 2018-12-16 15:30 | disposition home or self-care (01) | LOC: ED HOLD 12-09 00:08 → ER 16:24 → ORTHO 4S 12-09 03:39 | DX: J69.0 Pneumonitis due to inhalation of food and vomit (principal); N18.6 End stage renal disease; I82.621 Acute embolism and thrombosis of deep veins of right upper extremity ==